=== PATIENT | female | born 1960 | race Caucasian/White ===

== ENCOUNTER → 2016-09-09 | Outpatient (CLI) | payer BC ==
[~2016-09-09] MED LIST: BUTA1CAP39 PO; ESCT10T PO; ESTR0.5T PO; ESTRODOL PO; HYDR-3454 PO; LEVO75CA2; LEVO88TA26 PO; LVT.088T PO; ONDA-42 SL; VIVELLE TD
--- NOTE | 2016-09-09 19:31 | Diagnostic Imaging Report ---
INDICATION: Chest pain with history of thoracic aneurysm. TECHNIQUE: Two view chest at 5:17 PM CORRELATION STUDY: 02/22/2009 FINDINGS: Heart size and mediastinal configuration relatively stable and unremarkable. Minimal calcification of the aortic arch. No suggestion for abnormal mediastinal widening. The lungs are clear with no consolidating infiltrate. There is no significant pleural effusion or pneumothorax. Perhaps minimal pectus excavatum. IMPRESSION: 1. No radiographic evidence for acute abnormality of the chest. Dictated by: Dictated on workstation # [id number]
== END ==
LOC: RAD 16:42
PROVIDERS: ATTEND Internal Medicine
DX: R07.9 Chest pain, unspecified (principal)
CPT/HCPCS: 71020

== ENCOUNTER 2016-10-18 12:30 | Outpatient (RCR) | payer BC ==
[2016-12-04] MEDS ORDERED: NEBI5TAB8 PO (09:16)
[2016-12-04] MEDS ORDERED: HYDR-3812 PO (09:16)
[2016-12-04] MEDS ORDERED: FENT1PAT8 TD (09:16)
== END 2016-12-11 | disposition home or self-care (01) ==
LOC: CARD 12:30
PROVIDERS: ATTEND Internal Medicine
DX: R00.2 Palpitations (principal); R07.9 Chest pain, unspecified
CPT/HCPCS: 93270

== ENCOUNTER → 2016-11-20 | Outpatient (CLI) | payer BC ==
[~2016-11-20] MED LIST changes: +CATHETER FLUSH 10 ML SYR IV PRN; +FENT1PAT8 TD; +HYDR-3812 PO; +IOHEXOL 350 MG/ML 100 ML (OMNIPAQUE 350) VIAL IV ONE; +NEBI5TAB8 PO; +NS 100 ML (IVPB) BAG IV ONE
--- NOTE | 2016-11-20 13:25 | Diagnostic Imaging Report ---
PROCEDURE: US Gallbladder. TECHNIQUE: Multiple real-time grayscale images were obtained over the right upper quadrant in various projections. INDICATION: Abdominal pain. FINDINGS: There is a 4.0 x 2 x 3.1 cm indeterminate solid mass seen near the pancreatic body region. This is concerning for malignancy. The liver demonstrates a 1.9 cm cystic lesion with septations seen and no internal vascularity within the inferior aspect of the right hepatic lobe. Hepatopetal flow of the portal vein is seen. The gallbladder demonstrates no stones or wall thickening. No pericholecystic fluid is seen. The right kidney is 10.4 cm in length with no hydronephrosis or focal lesion. No fluid collection in the upper abdomen is seen. IMPRESSION: A 4 cm suspicious mass is seen at the level of the pancreatic body. Pancreatic mass protocol CT scan of the abdomen without and with intravenous contrast is recommended for further evaluation. The findings of suspected pancreatic mass were called to Dr. Rosales by the anesthesiology technologist performing the exam at 01:00 p.m. Dictated by: Dictated on workstation # [id number]
[2016-11-20 13:51] LABS: BLOOD UREA NITROGEN 8 MG/DL (7-18); BUN/CREATININE RATIO 11; GFR ESTIMATED > 60
--- NOTE | 2016-11-20 15:47 | Diagnostic Imaging Report ---
PROCEDURE: CT abdomen and pelvis with and without contrast. TECHNIQUE: Precontrast acquisitions were acquired through the abdomen and pelvis. Multiple contiguous axial images were obtained through the abdomen and pelvis after the administration of intravenous contrast. INDICATION: Pancreatic mass. Abdominal pain. 100 mL of Omnipaque 350 is administered intravenously. FINDINGS: The lung bases are clear. There is a pancreatic body mass measuring 5.1 x 3.1 x 3.6 cm in size. This appears to be extending outside the confines of the border of the pancreas with surrounding mild fatty stranding. There is encasement of the splenic artery, the splenic vein, the upper aspect of the SMV near its confluence with the splenic vein with obstruction of the proximal aspect of the portal vein. This demonstrates reconstitution. Lymphatic artery originates from the SMA, replaced hepatic artery. There is partial encasement of the left gastric artery as well. Portal vein collaterals are seen in the iron hepatis. There are hypodense lesions in the liver up to 1.5 cm in the upper aspect of the right hepatic lobe, likely related to cysts with no evidence of a solid lesion or metastasis. There are perfusional density changes in the liver probably secondary to the proximal portal vein occlusion. The pancreatic head and the bile ducts appear normal. The spleen is not enlarged. The adrenal glands appear unremarkable. The kidneys have symmetric enhancement and contrast excretion. There is no hydronephrosis. The abdominal aorta is normal in caliber. Minimal amount of free fluid in the pelvis is seen. The small bowel mesentery demonstrates mild venous engorgement and minimal prominence of the mesenteric lymph nodes. Some colonic thickening is seen in the left colon and the rectum. This is probably related to inferior mesenteric vein obstruction. There is mild diverticulosis. The urinary bladder appears unremarkable. The osseous structures appear grossly unremarkable. IMPRESSION: A 5.1 cm pancreatic body mass with occlusion of the confluence of the splenic vein, SMV and proximal aspect of the portal vein and encasement of the splenic artery, compatible with pancreatic adenocarcinoma. The findings were discussed with Dr. Rosales at time of dictation. Dictated by: Dictated on workstation # [id number]
== END ==
LOC: RAD 11:55
PROVIDERS: ATTEND Internal Medicine
DX: K86.89 Other specified diseases of pancreas (principal)
CPT/HCPCS: 36415; 74178; 76705; 82565; 84520

== ENCOUNTER 2016-12-04 09:00 | Outpatient (CLI) | payer BC ==
[~2016-12-04] VITALS: Ht 151.1 cm; Wt 49.9 kg
[~2016-12-04 09:00] MED LIST changes: -CATHETER FLUSH 10 ML SYR IV PRN; -FENT1PAT8 TD; -HYDR-3812 PO; -IOHEXOL 350 MG/ML 100 ML (OMNIPAQUE 350) VIAL IV ONE; -NEBI5TAB8 PO; -NS 100 ML (IVPB) BAG IV ONE
[2016-12-04] MEDS ORDERED: FENT1PAT8 TD (09:16)
[2016-12-04] MEDS ORDERED: NEBI5TAB8 PO (09:16)
[2016-12-04] MEDS ORDERED: HYDR-3812 PO (09:16)
== END 2016-12-04 09:53 ==
LOC: PREOP 09:00
PROVIDERS: ATTEND Surgery
DX: Z01.818 Encounter for other preprocedural examination (principal); C25.9 Malignant neoplasm of pancreas, unspecified

== ENCOUNTER 2016-12-05 11:17 | Day surgery (SDC) | payer BC ==
[~2016-12-05] VITALS: Ht 151.1 cm; Wt 49.9 kg
[~2016-12-05 11:17] MED LIST changes: +FENT1PAT8 TD; +HYDR-3812 PO; +NEBI5TAB8 PO
[2016-12-05] MEDS ORDERED: ceFAZolin 2 GM/NS 50 ML IV ONE (11:30)
[2016-12-05] MEDS ORDERED: CATHETER FLUSH 10 ML SYR IV PRN (11:30)
--- NOTE | 2016-12-05 11:32 | Progress Note-Pre Operative ---
Pre-Operative Progress Note H&P Reviewed The H&P was reviewed, patient examined and no changes noted. Time Seen by Provider: 11:28 Date H&P Reviewed: Dec 05, 2016 Time H&P Reviewed: 11:30 Pre-Operative Diagnosis: Venous Insufficiency, Pancreatic CA ANN SIFUENTES DO Dec 05, 2016 11:32
[2016-12-05 11:55] VITALS: BP 124/68
[2016-12-05] MEDS ORDERED: HEParin (CENTRAL IV FLUSH) 500 UNIT/5 ML SYR ONE (11:57)
[2016-12-05] MEDS ORDERED: LIDOCAINE/EPI 1%-1:200,000 (XYLOCAINE) 30 ML VIAL ONE (11:57)
[2016-12-05] MEDS ORDERED: 0.9% SODIUM CHLORIDE PF INJ 20 ML VIAL ONE ×2 (11:58→12:20)
[2016-12-05] MEDS ORDERED: LIDOCAINE PF 2% 5 ML (XYLOCAINE) VIAL ONE (11:59)
[2016-12-05] MEDS ORDERED: proPOfol 200 MG/20 ML (DIPRIVAN) VIAL IV ONE (11:59)
[2016-12-05] MEDS ORDERED: MIDAZOLAM 2 MG/2 ML (VERSED) VIAL ONE (11:59)
[2016-12-05] MEDS ORDERED: ONDANSETRON 4 MG/2 ML (SDV) Z0FRAN ONE ×2 (11:59→12:07)
[2016-12-05] MEDS ORDERED: DEXAMETHASONE PF 10 MG/ML (DECADRON) VIAL ONE (11:59)
[2016-12-05] MEDS ORDERED: fentaNYL INJECTION 100 MCG/2 ML AMP ONE (11:59)
[2016-12-05] MEDS ORDERED: LACTATED RINGERS 1,000 ML IV PRN (12:03)
[2016-12-05] MEDS ORDERED: SCOPOLAMINE 1.5 MG (TRANSDERM-SCOP) PATCH ONE (12:06)
[2016-12-05] MEDS ORDERED: SEVOFLURANE (ULTANE) 15 ML INHAL SOLN ONE ×2 (12:07)
[2016-12-05] MEDS ORDERED: FAMOTIDINE 20MG/2ML IV (PEPCID) ONE (12:07)
[2016-12-05] MEDS ORDERED: LACTATED RINGERS 1,000 ML IV ONE ×2 (12:07→12:40)
[2016-12-05] MEDS ORDERED: SCOPOLAMINE 1.5 MG (TRANSDERM-SCOP) PATCH TOP ONE (12:15)
[2016-12-05] MEDS ORDERED: ONDANSETRON 4 MG/2 ML (SDV) Z0FRAN IV ONE (12:15)
[2016-12-05] MEDS ORDERED: FAMOTIDINE 20MG/2ML IV (PEPCID) IV ONE (12:15)
[2016-12-05] MEDS ORDERED: morphine INJ 10 MG/ML 1ML (SYR OR VIAL) IVP PRN (13:00)
[2016-12-05] MEDS ORDERED: ONDANSETRON 4 MG/2 ML (SDV) Z0FRAN IVP PRN (13:00)
[2016-12-05] MEDS ORDERED: morphine INJ 10 MG/ML 1ML (SYR OR VIAL) ONE (13:09)
--- NOTE | 2016-12-05 13:15 | Progress Note-Post Operative ---
Post-Operative Progess Note Surgeon (s)/Heel Turner (s) Surgeon ANN SIFUENTES DO Heel Turner: none Pre-Operative Diagnosis Venous Insufficiency, Pancreatic CA Post-Operative Diagnosis same Procedure & Operative Findings Date of Procedure 12/05/16 Procedure Performed/Findings port placement Anesthesia Type LMA Estimated Blood Loss Estimated blood loss (mL): scant Specimens/Packing Specimens Removed none ANN SIFUENTES DO Dec 05, 2016 13:14
--- NOTE | 2016-12-05 13:18 | Discharge Inst-Surgical ---
Discharge Inst-Surgical Depart Medication/Instructions New, Converted or Re-Newed RX: Other (no RX) Patient Instructions Follow up Appt: Make appointment for 1 week. [phone] Instructions: No strenuous activity. May shower in 24 hours, no tub bath or soaking. Skin/Wound Care: May remove band-aids in am. Dermabond will fall off on its own. Symptoms to Report: Appetite Changes, Extremity Discoloration, Numbness/Tingling, Swelling Increased , Bleeding Excessive, Eyesight Changes, Pain Increased, Urine Color Change, Constipation(Persistent), Fever over 101 degree F, Pain/Pressure in chest, Urinating Difficulty, Cough Up/Vomit Blood, Heart Beat Irreg/Pounding, Pain/ Pressure in jaw, Vaginal Bleeding Increase, Cramps in feet or legs, Lightheadedness, Pain/Pressure in shoulder, Diarrhea(Persistent), Memory Changes Suddenly, Questions/Concerns, Weight gain consecutive days, Dizziness/ Fainting, Nausea/Vomiting, Shortness of Breath, Weight gain over 2 pounds If questions or concerns contact your physician Or seek help at emergency department. Activity Activity as Tolerated: Yes Activity Instructions: Avoid Stress to Incision Diet Discharge Diet: No Restrictions If Any Problems/Questions/Issu: Contact Your Physician, Go to Emergency Room Skin/Wound Care Infection Signs and Symptoms: Increased Redness, Foul Odor of Wound, Increased Drainage, Skin Itchy or Has a Rash, Increased Swelling, Temperature Above 101 F Bathing Instructions: Shower Stitches/Harika/Dermabond Dis: Dermabond Ice Pack: Ice On and Off Site ANN SIFUENTES DO Dec 05, 2016 13:18
[2016-12-05 13:55] VITALS: BP 101/65
[2016-12-05] MEDS ORDERED: HYDROcodone/APAP 5 MG/325 MG (LORTAB) TAB PO ONE (14:15)
[2016-12-05 14:25] VITALS: BP 103/57
[2016-12-05 14:55] VITALS: BP 100/57
[2016-12-05 15:30] VITALS: BP 100/57
--- NOTE | 2016-12-05 17:49 | Diagnostic Imaging Report ---
EXAMINATION: Intraoperative view of the chest. INDICATION: Port placement performed by Dr. Murray. FLUOROSCOPY TIME: 2 seconds. IMPRESSION: Left internal jugular port is seen with the tip at the cavoatrial junction. Dictated by: Dictated on workstation # [id number]
--- NOTE | 2016-12-08 01:38 | OPERATIVE REPORT ---
PROCEDURE PHYSICIAN: ANN MURRAY DATE OF PROCEDURE: 12/05/2016 PREOPERATIVE DIAGNOSIS: 1. Venous insufficiency. 2. Pancreatic cancer. POSTOPERATIVE DIAGNOSIS: 1. Venous insufficiency. 2. Pancreatic cancer. PROCEDURE: Insertion of Port-A-Cath left IJ, left anterior chest wall. SURGEON: Dr. Murray AUTOMATIC FOLDER SEAMER: None. ANESTHESIA: LMA BLOOD LOSS: Less than 5 mL. FLUIDS: Per anesthesia. SPECIMENS: None. POSTOPERATIVE CONDITION: Stable. INDICATION FOR THE PROCEDURE: The patient is a 56-year-old female who unfortunately has been recently diagnosed with pancreatic cancer and having trouble with a blood sticks and will need long-term IV access for chemotherapy. FINDINGS: The patient had a Port-A-Cath placed in left anterior chest wall through the left IJ tunneled to the left anterior chest wall. PROCEDURE NOTE: After informed consent was obtained, the patient was brought to the operating room, placed on table in supine position. She was sterilely prepped and draped in the normal fashion. Local lidocaine used to infiltrate the skin of the left anterior chest wall as well as up in the direction toward the left IJ and then in the left neck. Then using an ultrasound guidance, I am able to find the internal jugular vein and then watching inserted the needle right into the vein. Good flash of blood. Removed this syringe. Placed a guidewire down the needle using Seldinger technique. Checked ultrasound and it was in good position then checked with fluoroscopy and it was down in the heart. I clamped this in place and made an incision in the left anterior chest wall with a number 15 blade, carried down through skin into subcutaneous tissue, deepened down through the subcutaneous tissue with Bovie electrocautery, down to the fascia of the pectoralis muscle. I created a pocket then made a stab incision along the guidewire and then over the guidewire using the Seldinger technique, placed the dilator. Then just next to the dilator, I used the tunneler to tunnel the catheter from the neck and down into the left anterior chest wall. Once this was in, then I removed the inner portion of the dilator as well as the guidewire at the same time and placed the catheter down the dilator using the Seldinger technique. Checked with fluoroscopy and it was in good position as was the dilator. I removed the dilating sheath and then checked again and the catheter was in good position. Cut off a distal portion of the catheter and then attached to the port and then placed the locking mechanism in place, then accessed the port with a Pastrana needle, good flash of blood and then easily flushed with saline. Placed this into the pocket and then sutured this in place with 3-0 Prolene. Then using a Pastrana needle, flushed with heparinized saline. Closed the subcutaneous tissue with 3-0 Vicryl 2 interrupted sutures then closed the skin with 4-0 undyed Monocryl 3 interrupted subcuticular stitches. Also closed the stab incision with a 4-0 undyed Monocryl subcuticular stitch. There was a little bleeding at the beginning at the left IJ but this had stopped. Took a quick fluoroscopy, good curve at the IJ and no kink at the port. The area was then cleaned and dried and Dermabond placed. The patient then transferred to recover room in stable condition. Sponge, needle and instrument counts correct at the end of the case. Job ID: [id number] Dictated Date: 12/05/2016 15:57:09 Pig Farm Manager Date: 12/08/2016 01:27:42 / santos
--- OUTSIDE RECORDS SUMMARY | 2016-12-12 03:31 | XMS REPORT ---
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 Assessment Encounter for immunization Z23 Active Problem 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 Active Problem Acute pharyngitis 462 Active Problem Other, multiple, and unspecified sites, insect bite, nonvenomous, infected 919.5 Active Problem Need for prophylactic vaccination and inoculation, Influenza V04.81 Active Problem DTAP TEST V06.1 Active Problem PPV23 (PNEUMOVAX) DX V03.82 Active Problem Bite of nonvenomous arthropod E906.4 Active Problem ZOSTAVAX DX V05.8 Active Medications No Known Medications Procedures Procedure Coding System Code Date SINGLE IMMUNIZATION ADMIN CPT-4 54327 Mar 06, 2015 TDAP (BOOSTRIX) CPT-4 09480 Mar 06, 2015 Results No Known Results Immunizations Vaccine Administration Date TDAP (BOOSTRIX) Mar 06, 2015 Summary Purpose eClinicalWorks Submission
--- OUTSIDE RECORDS SUMMARY | 2016-12-12 03:31 | XMS REPORT | Continuity of Care Document ---
Author Author [facility] Organization [facility] Address Unknown Phone Unavailable Allergies Active Description Code Type Severity Reaction Onset Reported/Identified Relationship to Patient Clinical Status Yes NKANo Known Allergies NKA Miscellaneous Allergy Unknown N/ A 09/21/2005 Yes bisacodyl [id number] Drug Allergy Unknown HIVES 12/05/2016 Yes SENOK SENOK Unknown N/A 12/09/2016 Medications Problems Date Dx Coded Attending Type Code Diagnosis Diagnosed By 02/27/2010 Ot 346.90 02/27/2010 Ot 784.0 02/18/2012 RAJOTTE SANDER OPERATOR, AMARILYS A V04.81 FLU DX (3 YRS AND ABOVE, IM) 02/18/2012 RAJOTTE SANDER OPERATOR, AMARILYS A V04.81 FLU DX (3 YRS AND ABOVE, IM) 02/18/2012 RAJOTTE SANDER OPERATOR, AMAIRLYS A V04.81 FLU DX (3 YRS AND ABOVE, IM) 02/18/2012 RAJOTTE SANDER OPERATOR, AMARILYS A V04.81 FLU DX (3 YRS AND ABOVE, IM) 02/18/2012 RAJOTTE SANDER OPERATOR, AMARILYS A V04.81 FLU DX (3 YRS AND ABOVE, IM) 02/18/2012 RAJOTTE SANDER OPERATOR, AMARILYS A V04.81 FLU DX (3 YRS AND ABOVE, IM) 02/18/2012 RAJOTTE SANDER OPERATOR, AMARILYS A V04.81 FLU DX (3 YRS AND ABOVE, IM) 02/18/2012 RAJOTTE SANDER OPERATOR, AMARILYS A V04.81 FLU DX (3 YRS AND ABOVE, IM) 03/06/2012 RAJOTTE SANDER OPERATOR, AMARILYS A V03.82 PPV23 (PNEUMOVAX) DX 03/06/2012 RAJOTTE SANDER OPERATOR, AMARILYS A V06.1 TDAP DX 03/06/2012 RAJOTTE SANDER OPERATOR, AMARILYS A V03.82 PPV23 (PNEUMOVAX) DX 03/06/2012 RAJOTTE SANDER OPERATOR, AMAIRLYS A V06.1 TDAP DX 03/06/2012 RAJOTTE SANDER OPERATOR, AMARILYS A V03.82 PPV23 (PNEUMOVAX) DX 03/06/2012 RAJOTTE SANDER OPERATOR, AMARILYS A V06.1 TDAP DX 03/06/2012 RAJOTTE SANDER OPERATOR, AMARILYS A V03.82 PPV23 (PNEUMOVAX) DX 03/06/2012 RAJOTTE SANDER OPERATOR, AMARILYS A V06.1 TDAP DX 03/06/2012 RAJOTTE SANDER OPERATOR, AMARILYS A V03.82 PPV23 (PNEUMOVAX) DX 03/06/2012 RAJOTTE SANDER OPERATOR, AMARILYS A V06.1 TDAP DX 03/06/2012 RAJOTTE SANDER OPERATOR, AMARILYS A V03.82 PPV23 (PNEUMOVAX) DX 03/06/2012 RAJOTTE SANDER OPERATOR, AMARILYS A V06.1 TDAP DX 03/06/2012 RAJOTTE SANDER OPERATOR, AMARILYS A V03.82 PPV23 (PNEUMOVAX) DX 03/06/2012 RAJOTTE SANDER OPERATOR, AMARILYS A V06.1 TDAP DX 03/06/2012 RAJOTTE SANDER OPERATOR, AMARILYS A V03.82 PPV23 (PNEUMOVAX) DX 03/06/2012 RAJOTTE SANDER OPERATOR, AMARILYS A V06.1 TDAP DX 06/16/2012 RAJOTTE SANDER OPERATOR, AMARILYS A 379.00 SCLERITIS UNSPECIFIED 06/16/2012 RAJOTTE SANDER OPERATOR, AMARILYS A 379.00 SCLERITIS UNSPECIFIED 06/16/2012 RAJOTTE SANDER OPERATOR, AMARILYS A 379.00 SCLERITIS UNSPECIFIED 06/16/2012 RAJOTTE SANDER OPERATOR, AMARILYS A 379.00 SCLERITIS UNSPECIFIED 06/16/2012 RAJOTTE SANDER OPERATOR, AMARILYS A 379.00 SCLERITIS UNSPECIFIED 06/16/2012 RAJOTTE SANDER OPERATOR, AMARILYS A 379.00 SCLERITIS UNSPECIFIED 06/16/2012 RAJOTTE SANDER OPERATOR, AMARILYS A 379.00 SCLERITIS UNSPECIFIED 02/18/2013 RAJOTTE SANDER OPERATOR, AMARILYS A 462 PHARYNGITIS ACUTE 02/18/2013 RAJOTTE SANDER OPERATOR, AMARILYS A 462 PHARYNGITIS ACUTE 02/18/2013 RAJOTTE SANDER OPERATOR, AMARILYS A 462 PHARYNGITIS ACUTE 02/18/2013 RAJOTTE SANDER OPERATOR, AMARILYS A 462 PHARYNGITIS ACUTE 02/18/2013 RAJOTTE SANDER OPERATOR, AMARILYS A 462 PHARYNGITIS ACUTE 03/09/2013 DIANNE HUBER, SHER Robbins Ot 211.3 03/09/2013 DIANNE HUBER, SHER Robbins Ot 562.10 03/09/2013 DIANNE HUBER, SHER Robbins Ot V76.51 03/29/2013 RAJOTTE SANDER OPERATOR, AMARILYS A V05.8 ZOSTAVAX DX 03/29/2013 RAJOTTE SANDER OPERATOR, AMARILYS A V05.8 ZOSTAVAX DX 03/29/2013 RAJOTTE SANDER OPERATOR, AMARILYS A V05.8 ZOSTAVAX DX 03/29/2013 RAJOTTE SANDER OPERATOR, AMARILYS A V05.8 ZOSTAVAX DX 07/27/2013 RAJOTTE SANDER OPERATOR, AMARILYS A 919.5 INSECT BITE NONVENOMOUS OF OTHER MULTIPLE AND UNSPECIFIED SITES INFECTED 07/27/2013 RAJALANE SANDER OPERATOR, AMARILYS A 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 07/27/2013 RAJOTTE SANDER OPERATOR, AMARILYS A 919.5 INSECT BITE NONVENOMOUS OF OTHER MULTIPLE AND UNSPECIFIED SITES INFECTED 07/27/2013 RAJOTTE SANDER OPERATOR, AMARILYS A 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 07/27/2013 RAJOTTE SANDER OPERATOR, AMARILYS A 919.5 INSECT BITE NONVENOMOUS OF OTHER MULTIPLE AND UNSPECIFIED SITES INFECTED 07/27/2013 RAJOTTE SANDER OPERATOR, AMARILYS A 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 11/24/2013 CRIS HUBER, MEDINA Sanders Ot 216.5 11/24/2013 CRIS HUBER, MEDINA Sanders Ot 244.9 11/24/2013 CRIS HUBER, MEDINA Sanders Ot 311 11/24/2013 CRIS HUBER, MEDINA Sanders Ot V74.8 01/30/2014 JUDE MCCURDY SANDER OPERATOR Ot 346.90 01/30/2014 JUDE MCCURDY SANDER OPERATOR Ot 784.0 03/08/2014 RAJALANE SANDER OPERATOR, AMARILYS A 357.9 NEUROPATHY UNSP 03/08/2014 RAJALANE SANDER OPERATOR, AMARILYS A 723.1 PAIN NECK 03/08/2014 CHERYLE SANDER OPERATOR, AMARILYS A 733.00 OSTEOPOROSIS UNSPECIFIED 03/08/2014 CHERYLE SANDER OPERATOR, AMARILYS A 357.9 NEUROPATHY UNSP 03/08/2014 RAJALANE SANDER OPERATOR, AMARILYS A 723.1 PAIN NECK 03/08/2014 NAMAN SANDER OPERATOR, AMARILYS A 733.00 OSTEOPOROSIS UNSPECIFIED 03/16/2015 Ot 787.01 03/16/2015 DIANNE HUBER, SHER Robbins Ot V72.84 03/16/2015 CRIS HUBER, MEDINA Sanders Ot 448.1 03/16/2015 CRIS HUBER, MEDINA Sanders Ot 709.9 03/16/2015 CRIS HUBER, MEDINA Sanders Ot V72.84 09/11/2016 DIANNE HUBER, SHER Robbins Ot R07.9 CHEST PAIN, UNSPECIFIED 09/18/2016 DIANNE HUBER, SHER Robbins Ot R07.9 CHEST PAIN, UNSPECIFIED 10/03/2016 DIANNE HUBER, SHER Robbins Ot R00.2 PALPITATIONS 10/03/2016 DIANNE HUBER, SHER Robbins Ot R07.9 CHEST PAIN, UNSPECIFIED 11/21/2016 DIANNE HUBER, SHER Robbins Ot K86.89 OTHER SPECIFIED DISEASES OF PANCREAS 12/04/2016 KEEGAN SIFUENTES DOIC B Ot C25.9 MALIGNANT NEOPLASM OF PANCREAS, UNSPECIF 12/04/2016 BEAR HERNANDEZ ANN B Ot Z01.818 ENCOUNTER FOR OTHER PREPROCEDURAL EXAMIN 12/05/2016 KEEGAN SIFUENTES DOIC B Ot C25.9 MALIGNANT NEOPLASM OF PANCREAS, UNSPECIF 12/05/2016 KEEGAN SIFUENTES DOIC B Ot I87.2 VENOUS INSUFFICIENCY (CHRONIC) (PERIPHER 12/09/2016 JT SWANSON Ot 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 12/09/2016 JT SWANSON Ot E03.9 HYPOTHYROIDISM, UNSPECIFIED 12/09/2016 JT SWANSON Ot Z79.899 OTHER ANESTHESIOLOGIST AND CRITICAL CARE (CURRENT) DRUG THERAPY 12/09/2016 JT SWANSON N Ot 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 12/09/2016 JT SWANSON N Ot E03.9 HYPOTHYROIDISM, UNSPECIFIED 12/09/2016 JT SWANSON N Ot Z79.899 OTHER ANESTHESIOLOGIST AND CRITICAL CARE (CURRENT) DRUG THERAPY 12/09/2016 SHER DEAN MD Ot K86.89 OTHER SPECIFIED DISEASES OF PANCREAS 12/10/2016 KEEGAN SIFUENTES DOIC Gary Ot C25.9 MALIGNANT NEOPLASM OF PANCREAS, UNSPECIF 12/10/2016 BEAR HERNANDEZANN Ot Z01.818 ENCOUNTER FOR OTHER PREPROCEDURAL EXAMIN 12/11/2016 BEAR ANN Gary Ot C25.9 MALIGNANT NEOPLASM OF PANCREAS, UNSPECIF 12/11/2016 ANN SIFUENTES DO Ot E03.9 HYPOTHYROIDISM, UNSPECIFIED 12/11/2016 ANN SIFUENTES DO Ot F32.9 MAJOR DEPRESSIVE DISORDER, SINGLE EPISOD 12/11/2016 BEAR HERNANDEZANN Ot I87.2 VENOUS INSUFFICIENCY (CHRONIC) (PERIPHER 12/11/2016 JOSHNUNU ANN Ot Z79.899 OTHER RETIREMENT (CURRENT) DRUG THERAPY Procedures Code [place] [address] OXIMETRY 2012 24237 THERAPUTIC INJ SQ/IM 02/18/2013 J0696 ROCEPHIN INJ 07/2012 15155 STREP A (IN-HOUSE) 02/18/2013 58354 THERAPUTIC INJ SQ/IM 07/27/2013 J0696 ROCEPHIN INJ 1 g 07/27/2013 Neurology Ester Morejon 03/01/2014 23804 MRI SPINE (CERVICAL) W/O CONTRAST 03/01/2014 20982 MRI SPINE (THORACIC) W/O CONTRAST 03/01/2014 Results Test Result Range [id number] - 11/20/16 13:27 Serum or plasma urea nitrogen measurement (mass/volume) 8 mg /dL 7-18 Serum or plasma creatinine measurement (mass/volume) 0.70 mg /dL 0.60-1.30 Serum or plasma urea nitrogen/creatinine mass ratio 11 NRG Serum or plasma creatinine measurement with calculation of estimated glomerular filtration rate > NRG Methicillin resistant Staphylococcus aureus (MRSA) screening culture - 11:25 Methicillin resistant Staphylococcus aureus (MRSA) screening culture NEG NRG Encounters ACCT No. Visit Date/Time Discharge Status Pt. Type Provider Facility Loc./Unit Complaint [id number] 12/05/2016 11:17:00 2016 15:30:00 DIS Outpatient ANN SIFUENTES DO [facility] PANCREATIC CANCER [id number] 12/04/2016 09:00:00 2016 09:53:00 DIS Outpatient BEAR ANN HERNANDEZ [facility] PREOP PANCREATIC CANCER [id number] 03/04/2014 15:18:00 2013 23:59:59 CLS Outpatient [id number] 01/30/2014 11:14:00 2013 13:07:00 DIS Emergency JUDE MCCURDY SANDER OPERATOR [facility] ER [id number] 11/24/2013 09:11:00 2013 13:42:00 DIS Outpatient CRIS HUBER, MEDINA Sanders [facility] [id number] 11/22/2013 10:23:00 2013 23:59:59 CLS Outpatient MEDINA LYNCH MD [facility] PREOP [id number] 03/09/2013 07:24:00 2012 10:30:00 DIS Outpatient SHER DEAN MD [facility] [id number] 03/03/2013 07:22:00 2012 23:59:59 CLS Outpatient SHER DEAN MD [facility] PREOP [id number] 12/10/2016 12:38:00 ACT Outpatient JT SWANSON [facility] ONC [id number] 12/10/2016 08:09:00 ACT Outpatient JT SWANSON [facility] RAD PANCREATIC MASS K86.9 [id number] 11/20/2016 11:55:00 ACT Outpatient SHER DEAN MD [facility] RAD RUQ ABD PAIN [id number] 10/18/2016 12:30:00 ACT Outpatient SHER DEAN MD [facility] CARD PALPITATIONS,CHEST PAIN [id number] 09/09/2016 16:42:00 ACT Outpatient SHER DEAN MD [facility] RAD PALPITATIONS,CHEST PAIN [id number] 06/12/2010 08:43:00 Document Registration [id number] 02/27/2010 14:01:00 Document Registration
--- OUTSIDE RECORDS SUMMARY | 2016-12-12 03:31 | XMS REPORT ---
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 Problem PPV23 (PNEUMOVAX) DX V03.82 Active Problem Cervicalgia 723.1 Active Problem Need for prophylactic vaccination and inoculation, Influenza V04.81 Active Problem Acute pharyngitis 462 Active Problem Hypercholesterolemia E78.0 Active Problem ZOSTAVAX DX V05.8 Active Problem DTAP TEST V06.1 Active Problem Other, multiple, and unspecified sites, insect bite, nonvenomous, infected 919.5 Active Problem Bite of nonvenomous arthropod E906.4 Active Assessment Encounter for immunization Z23 Active Problem 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
== END 2016-12-05 15:30 | disposition home or self-care (01) ==
LOC: SDC 11:17
PROVIDERS: ATTEND Surgery
DX: C25.9 Malignant neoplasm of pancreas, unspecified (principal); I87.2 Venous insufficiency (chronic) (peripheral); E03.9 Hypothyroidism, unspecified; F32.9 Major depressive disorder, single episode, unspecified; Z79.899 Other long term (current) drug therapy
CPT/HCPCS: 87081

== ENCOUNTER → 2016-12-10 | Outpatient (CLI) | payer BC ==
--- NOTE | 2016-12-10 15:57 | Diagnostic Imaging Report ---
EXAMINATION: PET-CT TECHNIQUE: Serum glucose level at the time of the study is: 97 mg/dL. 10.8 mCi of FDG was administered intravenously followed by obtaining PET images with corresponding noncontrast CT scan images. The CT scan was performed for anatomic correlation and attenuation correction and was not performed according to the diagnostic protocol of the areas covered. The scan was performed from the head to mid thighs. INDICATION: Pancreatic cancer. FINDINGS: There is symmetric uptake in the brain. In the neck, there are mild areas of activity seen projecting over the left thyroid lobe of uncertain significance. There is no obvious thyroid nodule or mass seen on the localizer CT scan. The lungs demonstrate no suspicious hypermetabolic mass. There is a mass with mild to moderate hypermetabolism seen with maximum SUV of 5 noted in the pancreatic body. This matches the CT scan findings and is suspicious for pancreatic cancer. Adjacent activity around the pancreas and duodenum is likely physiologic with no discrete hypermetabolic peripancreatic lymph node involvement is seen. There is, however, a projection of the mass in superior direction around the celiac trunk region which appears to be essentially an exophytic part of the mass rather than a separate lymph node. IMPRESSION: 1. Pancreatic body mass with mild to moderate hypermetabolism suggestive of pancreatic cancer. No definite evidence of metastasis. 2. Nonspecific mild increased FDG uptake in the left thyroid lobe area with no definite underlying lesion based on the localizer CT. This is a nonspecific finding. Ultrasound evaluation of the thyroid gland could be considered for further evaluation. Dictated by: Dictated on workstation # [id number]
== END ==
LOC: RAD 08:09
PROVIDERS: ATTEND Internal Medicine Hematology & Oncology
DX: C25.9 Malignant neoplasm of pancreas, unspecified (principal); R93.8 Abnormal findings on diagnostic imaging of other specified body structures

== ENCOUNTER 2017-02-12 08:53 | Outpatient (RCR) | payer BC ==
[2016-12-09 09:09] LABS: BASOPHILS % (AUTO) 0 % (0-10); EOSINOPHILS # (AUTO) 0.1 10^3/uL (0.0-0.3); EOSINOPHILS % (AUTO) 2 % (0-10); LYMPHOCYTES # (AUTO) 1.4 X 10^3 (1.0-4.0); LYMPHOCYTES % (AUTO) 23 % (12-44); MEAN CORPUSCULAR HEMOGLOBIN 29 PG (25-34); MEAN CORPUSCULAR HGB CONC 32 G/DL (32-36); MEAN CORPUSCULAR VOLUME 91 FL (80-99); MEAN PLATELET VOLUME 10.5 FL (7.4-10.4); MONOCYTES # (AUTO) 0.5 X 10^3 (0.0-1.0); MONOCYTES % (AUTO) 8 % (0-12); NEUTROPHILS # (AUTO) 4.1 X 10^3 (1.8-7.8); NEUTROPHILS % (AUTO) 67 % (42-75); PLATELET COUNT 218 10^3/uL (130-400); RED BLOOD COUNT 4.16 10^6/uL (4.35-5.85); RED CELL DISTRIBUTION WIDTH 14.5 % (10.0-14.5); WHITE BLOOD COUNT 6.1 10^3/uL (4.3-11.0)
[2016-12-09 09:43] LABS: ALANINE AMINOTRANSFERASE 18 U/L (0-55); ALBUMIN 4.1 GM/DL (3.2-4.5); ANION GAP 9 MMOL/L (5-14); ASPARTATE AMINO TRANSFERASE 22 U/L (5-34); BILIRUBIN,TOTAL 0.4 MG/DL (0.1-1.0); BLOOD UREA NITROGEN 8 MG/DL (7-18); BUN/CREATININE RATIO 11; CARBON DIOXIDE 28 MMOL/L (21-32); CHLORIDE 103 MMOL/L (98-107); GFR ESTIMATED > 60; GLUCOSE 89 MG/DL (70-105); SODIUM 140 MMOL/L (135-145); TOTAL PROTEIN 6.9 GM/DL (6.4-8.2)
[2016-12-17 09:19] LABS: BASOPHILS % (AUTO) 0 % (0-10); EOSINOPHILS # (AUTO) 0.2 10^3/uL (0.0-0.3); EOSINOPHILS % (AUTO) 4 % (0-10); LYMPHOCYTES # (AUTO) 1.3 X 10^3 (1.0-4.0); LYMPHOCYTES % (AUTO) 25 % (12-44); MEAN CORPUSCULAR HEMOGLOBIN 29 PG (25-34); MEAN CORPUSCULAR HGB CONC 33 G/DL (32-36); MEAN CORPUSCULAR VOLUME 89 FL (80-99); MEAN PLATELET VOLUME 10.1 FL (7.4-10.4); MONOCYTES # (AUTO) 0.6 X 10^3 (0.0-1.0); MONOCYTES % (AUTO) 11 % (0-12); NEUTROPHILS # (AUTO) 3.1 X 10^3 (1.8-7.8); NEUTROPHILS % (AUTO) 60 % (42-75); PLATELET COUNT 190 10^3/uL (130-400); RED BLOOD COUNT 3.94 10^6/uL (4.35-5.85); RED CELL DISTRIBUTION WIDTH 13.9 % (10.0-14.5); WHITE BLOOD COUNT 5.2 10^3/uL (4.3-11.0)
[2016-12-17 09:55] LABS: ANION GAP 6 MMOL/L (5-14); BLOOD UREA NITROGEN 7 MG/DL (7-18); BUN/CREATININE RATIO 10; CALCIUM 8.9 MG/DL (8.5-10.1); CARBON DIOXIDE 27 MMOL/L (21-32); CHLORIDE 105 MMOL/L (98-107); CREATININE SERUM 0.67 MG/DL (0.60-1.30); GFR ESTIMATED > 60; GLUCOSE 90 MG/DL (70-105); POTASSIUM 3.4 MMOL/L (3.6-5.0); SODIUM 138 MMOL/L (135-145)
[2016-12-24 09:21] LABS: BASOPHILS % (AUTO) 0 % (0-10); EOSINOPHILS # (AUTO) 0.2 10^3/uL (0.0-0.3); EOSINOPHILS % (AUTO) 5 % (0-10); LYMPHOCYTES # (AUTO) 1.3 X 10^3 (1.0-4.0); LYMPHOCYTES % (AUTO) 46 % (12-44); MEAN CORPUSCULAR HEMOGLOBIN 29 PG (25-34); MEAN CORPUSCULAR HGB CONC 33 G/DL (32-36); MEAN CORPUSCULAR VOLUME 88 FL (80-99); MEAN PLATELET VOLUME 9.9 FL (7.4-10.4); MONOCYTES # (AUTO) 0.2 X 10^3 (0.0-1.0); MONOCYTES % (AUTO) 7 % (0-12); NEUTROPHILS # (AUTO) 1.3 X 10^3 (1.8-7.8); NEUTROPHILS % (AUTO) 43 % (42-75); PLATELET COUNT 119 10^3/uL (130-400); RED BLOOD COUNT 3.71 10^6/uL (4.35-5.85); RED CELL DISTRIBUTION WIDTH 13.4 % (10.0-14.5); WHITE BLOOD COUNT 2.9 10^3/uL (4.3-11.0)
[2016-12-24 09:35] LABS: ANION GAP 11 MMOL/L (5-14); BLOOD UREA NITROGEN 5 MG/DL (7-18); BUN/CREATININE RATIO 7; CALCIUM 8.6 MG/DL (8.5-10.1); CARBON DIOXIDE 26 MMOL/L (21-32); CHLORIDE 101 MMOL/L (98-107); CREATININE SERUM 0.69 MG/DL (0.60-1.30); GFR ESTIMATED > 60; GLUCOSE 95 MG/DL (70-105); POTASSIUM 2.7 MMOL/L (3.6-5.0); SODIUM 138 MMOL/L (135-145)
[2016-12-31 08:57] LABS: BASOPHILS % (AUTO) 1 % (0-10); EOSINOPHILS # (AUTO) 0.1 10^3/uL (0.0-0.3); EOSINOPHILS % (AUTO) 2 % (0-10); LYMPHOCYTES # (AUTO) 1.7 X 10^3 (1.0-4.0); LYMPHOCYTES % (AUTO) 39 % (12-44); MEAN CORPUSCULAR HEMOGLOBIN 30 PG (25-34); MEAN CORPUSCULAR HGB CONC 33 G/DL (32-36); MEAN CORPUSCULAR VOLUME 92 FL (80-99); MEAN PLATELET VOLUME 8.7 FL (7.4-10.4); MONOCYTES # (AUTO) 0.6 X 10^3 (0.0-1.0); MONOCYTES % (AUTO) 13 % (0-12); NEUTROPHILS # (AUTO) 1.9 X 10^3 (1.8-7.8); NEUTROPHILS % (AUTO) 45 % (42-75); PLATELET COUNT 265 10^3/uL (130-400); RED BLOOD COUNT 3.33 10^6/uL (4.35-5.85); RED CELL DISTRIBUTION WIDTH 15.1 % (10.0-14.5); WHITE BLOOD COUNT 4.3 10^3/uL (4.3-11.0)
[2016-12-31 09:21] LABS: ANION GAP 9 MMOL/L (5-14); BLOOD UREA NITROGEN 7 MG/DL (7-18); BUN/CREATININE RATIO 10; CALCIUM 8.5 MG/DL (8.5-10.1); CARBON DIOXIDE 25 MMOL/L (21-32); CHLORIDE 107 MMOL/L (98-107); CREATININE SERUM 0.72 MG/DL (0.60-1.30); GFR ESTIMATED > 60; GLUCOSE 107 MG/DL (70-105); POTASSIUM 3.7 MMOL/L (3.6-5.0); SODIUM 141 MMOL/L (135-145)
[2017-01-07 08:48] LABS: BASOPHILS % (AUTO) 1 % (0-10); EOSINOPHILS # (AUTO) 0.1 10^3/uL (0.0-0.3); EOSINOPHILS % (AUTO) 3 % (0-10); LYMPHOCYTES # (AUTO) 2.2 X 10^3 (1.0-4.0); LYMPHOCYTES % (AUTO) 61 % (12-44); MEAN CORPUSCULAR HGB CONC 32 G/DL (32-36); MEAN CORPUSCULAR VOLUME 91 FL (80-99); MEAN PLATELET VOLUME 9.5 FL (7.4-10.4); MONOCYTES # (AUTO) 0.2 X 10^3 (0.0-1.0); MONOCYTES % (AUTO) 5 % (0-12); NEUTROPHILS # (AUTO) 1.2 X 10^3 (1.8-7.8); NEUTROPHILS % (AUTO) 32 % (42-75); PLATELET COUNT 250 10^3/uL (130-400); RED CELL DISTRIBUTION WIDTH 15.1 % (10.0-14.5); WHITE BLOOD COUNT 3.7 10^3/uL (4.3-11.0)
[2017-01-07 08:52] LABS: MEAN CORPUSCULAR HEMOGLOBIN 29 PG (25-34)
[2017-01-07 09:35] LABS: ANION GAP 9 MMOL/L (5-14); BLOOD UREA NITROGEN 9 MG/DL (7-18); BUN/CREATININE RATIO 13; CALCIUM 8.8 MG/DL (8.5-10.1); CARBON DIOXIDE 27 MMOL/L (21-32); CHLORIDE 103 MMOL/L (98-107); CREATININE SERUM 0.67 MG/DL (0.60-1.30); GFR ESTIMATED > 60; GLUCOSE 81 MG/DL (70-105); POTASSIUM 3.9 MMOL/L (3.6-5.0); SODIUM 139 MMOL/L (135-145)
[2017-01-15 09:04] LABS: BASOPHILS % (AUTO) 1 % (0-10); EOSINOPHILS # (AUTO) 0.1 10^3/uL (0.0-0.3); EOSINOPHILS % (AUTO) 3 % (0-10); LYMPHOCYTES # (AUTO) 1.7 X 10^3 (1.0-4.0); LYMPHOCYTES % (AUTO) 39 % (12-44); MEAN CORPUSCULAR HEMOGLOBIN 29 PG (25-34); MEAN CORPUSCULAR HGB CONC 32 G/DL (32-36); MEAN CORPUSCULAR VOLUME 92 FL (80-99); MEAN PLATELET VOLUME 9.7 FL (7.4-10.4); MONOCYTES # (AUTO) 0.8 X 10^3 (0.0-1.0); MONOCYTES % (AUTO) 19 % (0-12); NEUTROPHILS # (AUTO) 1.7 X 10^3 (1.8-7.8); NEUTROPHILS % (AUTO) 38 % (42-75); PLATELET COUNT 152 10^3/uL (130-400); RED BLOOD COUNT 3.65 10^6/uL (4.35-5.85); RED CELL DISTRIBUTION WIDTH 15.4 % (10.0-14.5); WHITE BLOOD COUNT 4.4 10^3/uL (4.3-11.0)
[2017-01-15 09:24] LABS: ALANINE AMINOTRANSFERASE 25 U/L (0-55); ALBUMIN 3.6 GM/DL (3.2-4.5); ANION GAP 6 MMOL/L (5-14); ASPARTATE AMINO TRANSFERASE 28 U/L (5-34); BILIRUBIN,TOTAL 0.3 MG/DL (0.1-1.0); BLOOD UREA NITROGEN 8 MG/DL (7-18); BUN/CREATININE RATIO 12; CALCIUM 8.5 MG/DL (8.5-10.1); CARBON DIOXIDE 26 MMOL/L (21-32); CHLORIDE 107 MMOL/L (98-107); CREATININE SERUM 0.68 MG/DL (0.60-1.30); GFR ESTIMATED > 60; GLUCOSE 90 MG/DL (70-105); POTASSIUM 3.8 MMOL/L (3.6-5.0); SODIUM 139 MMOL/L (135-145); TOTAL PROTEIN 5.9 GM/DL (6.4-8.2)
[2017-01-22 09:11] LABS: BASOPHILS % (AUTO) 0 % (0-10); EOSINOPHILS # (AUTO) 0.1 10^3/uL (0.0-0.3); EOSINOPHILS % (AUTO) 1 % (0-10); LYMPHOCYTES # (AUTO) 2.9 X 10^3 (1.0-4.0); LYMPHOCYTES % (AUTO) 35 % (12-44); MEAN CORPUSCULAR HEMOGLOBIN 30 PG (25-34); MEAN CORPUSCULAR HGB CONC 32 G/DL (32-36); MEAN CORPUSCULAR VOLUME 91 FL (80-99); MEAN PLATELET VOLUME 9.5 FL (7.4-10.4); MONOCYTES # (AUTO) 0.3 X 10^3 (0.0-1.0); MONOCYTES % (AUTO) 4 % (0-12); NEUTROPHILS # (AUTO) 4.9 X 10^3 (1.8-7.8); NEUTROPHILS % (AUTO) 60 % (42-75); PLATELET COUNT 176 10^3/uL (130-400); RED BLOOD COUNT 3.65 10^6/uL (4.35-5.85); RED CELL DISTRIBUTION WIDTH 15.3 % (10.0-14.5); WHITE BLOOD COUNT 8.2 10^3/uL (4.3-11.0)
[2017-01-22 09:33] LABS: ANION GAP 12 MMOL/L (5-14); BLOOD UREA NITROGEN 11 MG/DL (7-18); BUN/CREATININE RATIO 15; CALCIUM 8.7 MG/DL (8.5-10.1); CARBON DIOXIDE 26 MMOL/L (21-32); CHLORIDE 102 MMOL/L (98-107); CREATININE SERUM 0.75 MG/DL (0.60-1.30); GFR ESTIMATED > 60; GLUCOSE 92 MG/DL (70-105); POTASSIUM 2.8 MMOL/L (3.6-5.0); SODIUM 140 MMOL/L (135-145)
[2017-01-22 10:13] LABS: MAGNESIUM 1.9 MG/DL (1.8-2.4)
[2017-01-29 09:36] LABS: BASOPHILS % (AUTO) 0 % (0-10); EOSINOPHILS # (AUTO) 0.1 10^3/uL (0.0-0.3); EOSINOPHILS % (AUTO) 1 % (0-10); LYMPHOCYTES % (AUTO) 44 % (12-44); MEAN CORPUSCULAR HEMOGLOBIN 30 PG (25-34); MEAN CORPUSCULAR HGB CONC 32 G/DL (32-36); MEAN CORPUSCULAR VOLUME 92 FL (80-99); MEAN PLATELET VOLUME 9.1 FL (7.4-10.4); MONOCYTES # (AUTO) 0.5 X 10^3 (0.0-1.0); MONOCYTES % (AUTO) 12 % (0-12); NEUTROPHILS # (AUTO) 1.9 X 10^3 (1.8-7.8); NEUTROPHILS % (AUTO) 43 % (42-75); PLATELET COUNT 120 10^3/uL (130-400); RED BLOOD COUNT 3.65 10^6/uL (4.35-5.85); RED CELL DISTRIBUTION WIDTH 16.1 % (10.0-14.5); WHITE BLOOD COUNT 4.5 10^3/uL (4.3-11.0)
[2017-01-29 09:53] LABS: ANION GAP 8 MMOL/L (5-14); BLOOD UREA NITROGEN 13 MG/DL (7-18); BUN/CREATININE RATIO 19; CALCIUM 8.5 MG/DL (8.5-10.1); CARBON DIOXIDE 27 MMOL/L (21-32); CHLORIDE 104 MMOL/L (98-107); CREATININE SERUM 0.68 MG/DL (0.60-1.30); GFR ESTIMATED > 60; GLUCOSE 94 MG/DL (70-105); POTASSIUM 3.9 MMOL/L (3.6-5.0); SODIUM 139 MMOL/L (135-145)
[2017-02-05 09:04] LABS: BASOPHILS % (AUTO) 1 % (0-10); EOSINOPHILS # (AUTO) 0.1 10^3/uL (0.0-0.3); EOSINOPHILS % (AUTO) 2 % (0-10); LYMPHOCYTES # (AUTO) 1.5 X 10^3 (1.0-4.0); LYMPHOCYTES % (AUTO) 43 % (12-44); MEAN CORPUSCULAR HEMOGLOBIN 30 PG (25-34); MEAN CORPUSCULAR HGB CONC 32 G/DL (32-36); MEAN CORPUSCULAR VOLUME 94 FL (80-99); MEAN PLATELET VOLUME 8.7 FL (7.4-10.4); MONOCYTES # (AUTO) 0.4 X 10^3 (0.0-1.0); MONOCYTES % (AUTO) 12 % (0-12); NEUTROPHILS # (AUTO) 1.5 X 10^3 (1.8-7.8); NEUTROPHILS % (AUTO) 42 % (42-75); PLATELET COUNT 137 10^3/uL (130-400); RED BLOOD COUNT 3.47 10^6/uL (4.35-5.85); RED CELL DISTRIBUTION WIDTH 17.4 % (10.0-14.5); WHITE BLOOD COUNT 3.6 10^3/uL (4.3-11.0)
[2017-02-05 09:31] LABS: ANION GAP 7 MMOL/L (5-14); BLOOD UREA NITROGEN 7 MG/DL (7-18); BUN/CREATININE RATIO 9; CALCIUM 8.8 MG/DL (8.5-10.1); CARBON DIOXIDE 27 MMOL/L (21-32); CHLORIDE 105 MMOL/L (98-107); CREATININE SERUM 0.76 MG/DL (0.60-1.30); GFR ESTIMATED > 60; GLUCOSE 105 MG/DL (70-105); POTASSIUM 4.2 MMOL/L (3.6-5.0); SODIUM 139 MMOL/L (135-145)
[~2017-02-12] VITALS: Ht 152.4 cm; Wt 54.9 kg
[~2017-02-12 08:53] MED LIST changes: +ATROPINE INJ 0.4 MG/ML SDV (CANCER CENTER) INJ SCH; +CTR IV SCH; +D5W 500 ML IV (CANCER CTR) 500 ML IV SCH; +DEXAMETHASONE IV ONE; +FLUOROURACIL 600 MG in SYRINGE-IVPB 1 SYRINGE IV SCH; +FLUOROURACIL IV SCH; +FOSAPREPITANT 150 MG/NS 150 MG IVPB (CANCER CTR) IV PRN; +FOSAPREPITANT DIMEGLUMINE 150 MG in NS (IVPB) CANCER CENTER ONLY 150 ML IV SCH; +GEMCITABINE HCL IV SCH; +IRINOTECAN HCL 200 MG, IRINOTECAN HCL 50 MG in D5W 250 ML IVPB (CANCER CTR) 250 ML IV SCH; +LEUCOVORIN CALCIUM 600 MG in D5W 250 ML IVPB (CANCER CTR) 250 ML IV SCH; +NS (IVPB) CANCER CENTER 250 ML ONE; +NS IV 1000 ML (CANCER CTR) 1,000 ML ONE; +NS IV 500 ML (CANCER CENTER) IV SCH; +NS IV SCH; +ONDANSETRON 8 MG, DEXAMETHASONE 4 MG/NS 50 ML IVPB (Cancer Ctr) IV ONE; +ONDANSETRON IV ONE; +OXALIPLATIN 100 MG, OXALIPLATIN (GENERIC) 20 MG in D5W 250 ML IVPB (CANCER CTR) 250 ML IV SCH; +PACLITAXEL PROTEIN IV SCH; +PALONOSETRON 0.25 MG, DEXAMETHASONE 10 MG/NS 50 ML IVPB IV PRN; +POTASSIUM CHL INJ (CANCER CTR) 20 MEQ in NS IV 1000 ML (CANCER CTR) 1,000 ML IV ONE; +[UNRECOGNIZED DRUG - OTHER] IV ONE; +[UNRECOGNIZED DRUG - OTHER] IV SCH; +diphenhydrAMINE 50 MG/ML INJ (CANCER CENTER) ONE; +methylPREDNISolone 125 MG/2 ML (SOLU-MEDROL) CANCER CTR ONE
[2017-02-12 09:16] LABS: BASOPHILS % (AUTO) 1 % (0-10); EOSINOPHILS # (AUTO) 0.1 10^3/uL (0.0-0.3); EOSINOPHILS % (AUTO) 3 % (0-10); LYMPHOCYTES # (AUTO) 1.8 X 10^3 (1.0-4.0); LYMPHOCYTES % (AUTO) 43 % (12-44); MEAN CORPUSCULAR HEMOGLOBIN 30 PG (25-34); MEAN CORPUSCULAR HGB CONC 32 G/DL (32-36); MEAN CORPUSCULAR VOLUME 94 FL (80-99); MEAN PLATELET VOLUME 9.1 FL (7.4-10.4); MONOCYTES # (AUTO) 0.6 X 10^3 (0.0-1.0); MONOCYTES % (AUTO) 14 % (0-12); NEUTROPHILS # (AUTO) 1.7 X 10^3 (1.8-7.8); NEUTROPHILS % (AUTO) 39 % (42-75); PLATELET COUNT 381 10^3/uL (130-400); RED BLOOD COUNT 3.47 10^6/uL (4.35-5.85); RED CELL DISTRIBUTION WIDTH 17.5 % (10.0-14.5); WHITE BLOOD COUNT 4.2 10^3/uL (4.3-11.0)
[2017-02-12 09:33] LABS: ALANINE AMINOTRANSFERASE 21 U/L (0-55); ALBUMIN 3.7 GM/DL (3.2-4.5); ANION GAP 6 MMOL/L (5-14); ASPARTATE AMINO TRANSFERASE 22 U/L (5-34); BILIRUBIN,TOTAL 0.3 MG/DL (0.1-1.0); BLOOD UREA NITROGEN 8 MG/DL (7-18); BUN/CREATININE RATIO 11; CALCIUM 8.7 MG/DL (8.5-10.1); CARBON DIOXIDE 27 MMOL/L (21-32); CHLORIDE 109 MMOL/L (98-107); CREATININE SERUM 0.71 MG/DL (0.60-1.30); GFR ESTIMATED > 60; GLUCOSE 108 MG/DL (70-105); SODIUM 142 MMOL/L (135-145); TOTAL PROTEIN 6.1 GM/DL (6.4-8.2)
== END 2017-02-15 | disposition home or self-care (01) ==
LOC: ONC 08:53
PROVIDERS: ATTEND Internal Medicine Hematology & Oncology
DX: Z51.11 Encounter for antineoplastic chemotherapy (principal); C25.1 Malignant neoplasm of body of pancreas; E03.9 Hypothyroidism, unspecified; R19.7 Diarrhea, unspecified; E86.0 Dehydration; E87.6 Hypokalemia; K59.00 Constipation, unspecified; F32.9 Major depressive disorder, single episode, unspecified; Z79.899 Other long term (current) drug therapy
CPT/HCPCS: 36415; 36591; 80048; 80053; 83735; 84443; 85025; 86301; 87324; 87449; 96360; 96361; 96365; 96366; 96367; 96372; 96375; 96413; 96417; 99213; 99214

== ENCOUNTER 2017-02-26 08:53 | Outpatient (RCR) | payer BC ==
[2017-02-19 09:30] LABS: BASOPHILS % (AUTO) 1 % (0-10); EOSINOPHILS % (AUTO) 0 % (0-10); LYMPHOCYTES # (AUTO) 1.5 X 10^3 (1.0-4.0); LYMPHOCYTES % (AUTO) 32 % (12-44); MEAN CORPUSCULAR HEMOGLOBIN 30 PG (25-34); MEAN CORPUSCULAR HGB CONC 32 G/DL (32-36); MEAN CORPUSCULAR VOLUME 93 FL (80-99); MEAN PLATELET VOLUME 9.3 FL (7.4-10.4); MONOCYTES # (AUTO) 0.6 X 10^3 (0.0-1.0); MONOCYTES % (AUTO) 12 % (0-12); NEUTROPHILS # (AUTO) 2.6 X 10^3 (1.8-7.8); NEUTROPHILS % (AUTO) 55 % (42-75); PLATELET COUNT 271 10^3/uL (130-400); RED BLOOD COUNT 3.41 10^6/uL (4.35-5.85); RED CELL DISTRIBUTION WIDTH 16.6 % (10.0-14.5); WHITE BLOOD COUNT 4.6 10^3/uL (4.3-11.0)
[2017-02-19 09:48] LABS: ANION GAP 8 MMOL/L (5-14); BLOOD UREA NITROGEN 7 MG/DL (7-18); BUN/CREATININE RATIO 11; CALCIUM 9.1 MG/DL (8.5-10.1); CARBON DIOXIDE 27 MMOL/L (21-32); CHLORIDE 103 MMOL/L (98-107); CREATININE SERUM 0.64 MG/DL (0.60-1.30); GFR ESTIMATED > 60; GLUCOSE 81 MG/DL (70-105); POTASSIUM 3.8 MMOL/L (3.6-5.0); SODIUM 138 MMOL/L (135-145)
[2017-02-19 09:54] LABS: ANISOCYTOSIS SLIGHT; BAND NEUTROPHILS 1 %; BASOPHILS % (MANUAL) 1 %; EOSINOPHILS % (MANUAL) 0 %; LYMPHOCYTES % (MANUAL) 35 %; METAMYELOCYTES % 1 %; MYELOCYTES % 1 %; NEUTROPHILS % (MANUAL) 50 %; POIKILOCYTOSIS SLIGHT; REACTIVE LYMPHOCYTES 2 %
[~2017-02-26 08:53] MED LIST changes: -ATROPINE INJ 0.4 MG/ML SDV (CANCER CENTER) INJ SCH; -D5W 500 ML IV (CANCER CTR) 500 ML IV SCH; -DEXAMETHASONE IV ONE; +FLU TRIvalent (5 YOA+) 2017-18 (AFLURIA) 0.5 ML IM ONE; -FLUOROURACIL 600 MG in SYRINGE-IVPB 1 SYRINGE IV SCH; -FLUOROURACIL IV SCH; -FOSAPREPITANT 150 MG/NS 150 MG IVPB (CANCER CTR) IV PRN; -IRINOTECAN HCL 200 MG, IRINOTECAN HCL 50 MG in D5W 250 ML IVPB (CANCER CTR) 250 ML IV SCH; -LEUCOVORIN CALCIUM 600 MG in D5W 250 ML IVPB (CANCER CTR) 250 ML IV SCH; -NS (IVPB) CANCER CENTER 250 ML ONE; -NS IV 1000 ML (CANCER CTR) 1,000 ML ONE; -NS IV SCH; -ONDANSETRON 8 MG, DEXAMETHASONE 4 MG/NS 50 ML IVPB (Cancer Ctr) IV ONE; -ONDANSETRON IV ONE; -OXALIPLATIN 100 MG, OXALIPLATIN (GENERIC) 20 MG in D5W 250 ML IVPB (CANCER CTR) 250 ML IV SCH; -POTASSIUM CHL INJ (CANCER CTR) 20 MEQ in NS IV 1000 ML (CANCER CTR) 1,000 ML IV ONE; -[UNRECOGNIZED DRUG - OTHER] IV ONE; -diphenhydrAMINE 50 MG/ML INJ (CANCER CENTER) ONE; -methylPREDNISolone 125 MG/2 ML (SOLU-MEDROL) CANCER CTR ONE
[2017-02-26 09:13] LABS: BASOPHILS % (AUTO) 1 % (0-10); EOSINOPHILS % (AUTO) 1 % (0-10); LYMPHOCYTES # (AUTO) 1.4 X 10^3 (1.0-4.0); LYMPHOCYTES % (AUTO) 74 % (12-44); MEAN CORPUSCULAR HEMOGLOBIN 30 PG (25-34); MEAN CORPUSCULAR HGB CONC 32 G/DL (32-36); MEAN CORPUSCULAR VOLUME 94 FL (80-99); MEAN PLATELET VOLUME 8.7 FL (7.4-10.4); MONOCYTES # (AUTO) 0.1 X 10^3 (0.0-1.0); MONOCYTES % (AUTO) 7 % (0-12); NEUTROPHILS # (AUTO) 0.3 X 10^3 (1.8-7.8); NEUTROPHILS % (AUTO) 18 % (42-75); PLATELET COUNT 112 10^3/uL (130-400); RED BLOOD COUNT 3.16 10^6/uL (4.35-5.85); WHITE BLOOD COUNT 1.9 10^3/uL (4.3-11.0)
[2017-02-26 09:31] LABS: ANION GAP 6 MMOL/L (5-14); BLOOD UREA NITROGEN 9 MG/DL (7-18); BUN/CREATININE RATIO 13; CALCIUM 8.7 MG/DL (8.5-10.1); CARBON DIOXIDE 29 MMOL/L (21-32); CHLORIDE 105 MMOL/L (98-107); GFR ESTIMATED > 60; GLUCOSE 75 MG/DL (70-105); POTASSIUM 4.1 MMOL/L (3.6-5.0); SODIUM 140 MMOL/L (135-145)
[2017-03-07 08:56] LABS: BASOPHILS % (AUTO) 1 % (0-10); EOSINOPHILS # (AUTO) 0.1 10^3/uL (0.0-0.3); EOSINOPHILS % (AUTO) 2 % (0-10); LYMPHOCYTES # (AUTO) 1.6 X 10^3 (1.0-4.0); LYMPHOCYTES % (AUTO) 41 % (12-44); MEAN CORPUSCULAR HEMOGLOBIN 30 PG (25-34); MEAN CORPUSCULAR HGB CONC 32 G/DL (32-36); MEAN CORPUSCULAR VOLUME 94 FL (80-99); MEAN PLATELET VOLUME 9.2 FL (7.4-10.4); MONOCYTES # (AUTO) 0.5 X 10^3 (0.0-1.0); MONOCYTES % (AUTO) 12 % (0-12); NEUTROPHILS # (AUTO) 1.7 X 10^3 (1.8-7.8); NEUTROPHILS % (AUTO) 44 % (42-75); PLATELET COUNT 378 10^3/uL (130-400); RED BLOOD COUNT 3.33 10^6/uL (4.35-5.85); RED CELL DISTRIBUTION WIDTH 17.1 % (10.0-14.5)
[2017-03-07 09:16] LABS: ALANINE AMINOTRANSFERASE 36 U/L (0-55); ALBUMIN 3.4 GM/DL (3.2-4.5); ANION GAP 8 MMOL/L (5-14); ASPARTATE AMINO TRANSFERASE 37 U/L (5-34); BILIRUBIN,TOTAL 0.3 MG/DL (0.1-1.0); BLOOD UREA NITROGEN 7 MG/DL (7-18); BUN/CREATININE RATIO 10; CALCIUM 8.7 MG/DL (8.5-10.1); CARBON DIOXIDE 26 MMOL/L (21-32); CHLORIDE 108 MMOL/L (98-107); CREATININE SERUM 0.73 MG/DL (0.60-1.30); GFR ESTIMATED > 60; GLUCOSE 131 MG/DL (70-105); POTASSIUM 3.5 MMOL/L (3.6-5.0); SODIUM 142 MMOL/L (135-145); TOTAL PROTEIN 5.8 GM/DL (6.4-8.2)
== END 2017-03-06 15:44 | disposition home or self-care (01) ==
LOC: ONC 08:53
PROVIDERS: ATTEND Internal Medicine Hematology & Oncology
DX: Z51.11 Encounter for antineoplastic chemotherapy (principal); C25.1 Malignant neoplasm of body of pancreas; E03.9 Hypothyroidism, unspecified; F32.9 Major depressive disorder, single episode, unspecified; Z79.899 Other long term (current) drug therapy; Z23 Encounter for immunization
CPT/HCPCS: 36591; 80048; 85007; 85025; 85027; 90471; 96367; 96375; 96413; 96417

== ENCOUNTER 2017-04-30 08:09 | Outpatient (RCR) | payer BC ==
[2017-03-07 08:56] LABS: BASOPHILS % (AUTO) 1 % (0-10); EOSINOPHILS # (AUTO) 0.1 10^3/uL (0.0-0.3); EOSINOPHILS % (AUTO) 2 % (0-10); HEMATOCRIT 31 % (35-52); HEMOGLOBIN 9.9 G/DL (11.5-16.0); LYMPHOCYTES # (AUTO) 1.6 X 10^3 (1.0-4.0); LYMPHOCYTES % (AUTO) 41 % (12-44); MEAN CORPUSCULAR HEMOGLOBIN 30 PG (25-34); MEAN CORPUSCULAR HGB CONC 32 G/DL (32-36); MEAN CORPUSCULAR VOLUME 94 FL (80-99); MEAN PLATELET VOLUME 9.2 FL (7.4-10.4); MONOCYTES # (AUTO) 0.5 X 10^3 (0.0-1.0); MONOCYTES % (AUTO) 12 % (0-12); NEUTROPHILS # (AUTO) 1.7 X 10^3 (1.8-7.8); NEUTROPHILS % (AUTO) 44 % (42-75); PLATELET COUNT 378 10^3/uL (130-400); RED BLOOD COUNT 3.33 10^6/uL (4.35-5.85); RED CELL DISTRIBUTION WIDTH 17.1 % (10.0-14.5)
[2017-03-07 09:16] LABS: ALANINE AMINOTRANSFERASE 36 U/L (0-55); ALBUMIN 3.4 GM/DL (3.2-4.5); ALKALINE PHOSPHATASE 70 U/L (40-136); BILIRUBIN,TOTAL 0.3 MG/DL (0.1-1.0); BUN/CREATININE RATIO 10; CALCIUM 8.7 MG/DL (8.5-10.1); CARBON DIOXIDE 26 MMOL/L (21-32); CHLORIDE 108 MMOL/L (98-107); CREATININE SERUM 0.73 MG/DL (0.60-1.30); GFR ESTIMATED > 60; GLUCOSE 131 MG/DL (70-105); POTASSIUM 3.5 MMOL/L (3.6-5.0); SODIUM 142 MMOL/L (135-145); TOTAL PROTEIN 5.8 GM/DL (6.4-8.2)
[2017-03-13 08:50] LABS: BASOPHILS % (AUTO) 1 % (0-10); EOSINOPHILS % (AUTO) 1 % (0-10); HEMATOCRIT 32 % (35-52); HEMOGLOBIN 10.3 G/DL (11.5-16.0); LYMPHOCYTES # (AUTO) 1.2 X 10^3 (1.0-4.0); LYMPHOCYTES % (AUTO) 44 % (12-44); MEAN CORPUSCULAR HEMOGLOBIN 30 PG (25-34); MEAN CORPUSCULAR HGB CONC 32 G/DL (32-36); MEAN CORPUSCULAR VOLUME 94 FL (80-99); MEAN PLATELET VOLUME 9.3 FL (7.4-10.4); MONOCYTES # (AUTO) 0.2 X 10^3 (0.0-1.0); MONOCYTES % (AUTO) 6 % (0-12); NEUTROPHILS # (AUTO) 1.4 X 10^3 (1.8-7.8); NEUTROPHILS % (AUTO) 49 % (42-75); PLATELET COUNT 318 10^3/uL (130-400); RED BLOOD COUNT 3.42 10^6/uL (4.35-5.85); RED CELL DISTRIBUTION WIDTH 16.6 % (10.0-14.5); WHITE BLOOD COUNT 2.8 10^3/uL (4.3-11.0)
[2017-03-13 09:06] LABS: BUN/CREATININE RATIO 10; CALCIUM 8.8 MG/DL (8.5-10.1); CARBON DIOXIDE 27 MMOL/L (21-32); CHLORIDE 106 MMOL/L (98-107); GFR ESTIMATED > 60; GLUCOSE 90 MG/DL (70-105); POTASSIUM 3.7 MMOL/L (3.6-5.0); SODIUM 139 MMOL/L (135-145)
[2017-03-20 12:23] LABS: BASOPHILS % (AUTO) 1 % (0-10); EOSINOPHILS % (AUTO) 0 % (0-10); HEMATOCRIT 35 % (35-52); HEMOGLOBIN 11.2 G/DL (11.5-16.0); LYMPHOCYTES # (AUTO) 2.1 X 10^3 (1.0-4.0); LYMPHOCYTES % (AUTO) 71 % (12-44); MEAN CORPUSCULAR HEMOGLOBIN 30 PG (25-34); MEAN CORPUSCULAR HGB CONC 32 G/DL (32-36); MEAN CORPUSCULAR VOLUME 95 FL (80-99); MONOCYTES # (AUTO) 0.3 X 10^3 (0.0-1.0); MONOCYTES % (AUTO) 10 % (0-12); NEUTROPHILS # (AUTO) 0.5 X 10^3 (1.8-7.8); NEUTROPHILS % (AUTO) 17 % (42-75); PLATELET COUNT 128 10^3/uL (130-400); RED BLOOD COUNT 3.68 10^6/uL (4.35-5.85); RED CELL DISTRIBUTION WIDTH 17.4 % (10.0-14.5)
[2017-03-20 12:40] LABS: BUN/CREATININE RATIO 12; CALCIUM 8.9 MG/DL (8.5-10.1); CARBON DIOXIDE 23 MMOL/L (21-32); CHLORIDE 107 MMOL/L (98-107); CREATININE SERUM 0.74 MG/DL (0.60-1.30); GFR ESTIMATED > 60; GLUCOSE 82 MG/DL (70-105); POTASSIUM 4.3 MMOL/L (3.6-5.0); SODIUM 140 MMOL/L (135-145)
[2017-03-26 09:28] LABS: BASOPHILS % (AUTO) 1 % (0-10); EOSINOPHILS # (AUTO) 0.1 10^3/uL (0.0-0.3); EOSINOPHILS % (AUTO) 3 % (0-10); HEMATOCRIT 32 % (35-52); HEMOGLOBIN 10.1 G/DL (11.5-16.0); LYMPHOCYTES # (AUTO) 1.4 X 10^3 (1.0-4.0); LYMPHOCYTES % (AUTO) 38 % (12-44); MEAN CORPUSCULAR HEMOGLOBIN 30 PG (25-34); MEAN CORPUSCULAR HGB CONC 32 G/DL (32-36); MEAN CORPUSCULAR VOLUME 94 FL (80-99); MEAN PLATELET VOLUME 9.4 FL (7.4-10.4); MONOCYTES # (AUTO) 0.8 X 10^3 (0.0-1.0); MONOCYTES % (AUTO) 22 % (0-12); NEUTROPHILS # (AUTO) 1.4 X 10^3 (1.8-7.8); NEUTROPHILS % (AUTO) 37 % (42-75); PLATELET COUNT 195 10^3/uL (130-400); RED BLOOD COUNT 3.35 10^6/uL (4.35-5.85); RED CELL DISTRIBUTION WIDTH 16.8 % (10.0-14.5); WHITE BLOOD COUNT 3.7 10^3/uL (4.3-11.0)
[2017-03-26 09:43] LABS: ALANINE AMINOTRANSFERASE 37 U/L (0-55); ALBUMIN 3.7 GM/DL (3.2-4.5); ALKALINE PHOSPHATASE 68 U/L (40-136); BILIRUBIN,TOTAL 0.4 MG/DL (0.1-1.0); BUN/CREATININE RATIO 10; CALCIUM 8.8 MG/DL (8.5-10.1); CARBON DIOXIDE 27 MMOL/L (21-32); CHLORIDE 108 MMOL/L (98-107); GFR ESTIMATED > 60; GLUCOSE 82 MG/DL (70-105); POTASSIUM 3.8 MMOL/L (3.6-5.0); SODIUM 141 MMOL/L (135-145); TOTAL PROTEIN 5.8 GM/DL (6.4-8.2)
[2017-04-02 09:03] LABS: BASOPHILS % (AUTO) 0 % (0-10); EOSINOPHILS % (AUTO) 1 % (0-10); HEMATOCRIT 33 % (35-52); HEMOGLOBIN 10.4 G/DL (11.5-16.0); LYMPHOCYTES % (AUTO) 17 % (12-44); MEAN CORPUSCULAR HEMOGLOBIN 30 PG (25-34); MEAN CORPUSCULAR HGB CONC 32 G/DL (32-36); MEAN CORPUSCULAR VOLUME 95 FL (80-99); MEAN PLATELET VOLUME 9.4 FL (7.4-10.4); MONOCYTES # (AUTO) 0.7 X 10^3 (0.0-1.0); MONOCYTES % (AUTO) 11 % (0-12); NEUTROPHILS # (AUTO) 4.2 X 10^3 (1.8-7.8); NEUTROPHILS % (AUTO) 71 % (42-75); PLATELET COUNT 272 10^3/uL (130-400); RED BLOOD COUNT 3.42 10^6/uL (4.35-5.85); RED CELL DISTRIBUTION WIDTH 16.1 % (10.0-14.5)
[2017-04-02 09:18] LABS: BUN/CREATININE RATIO 10; CALCIUM 9.3 MG/DL (8.5-10.1); CARBON DIOXIDE 27 MMOL/L (21-32); CHLORIDE 105 MMOL/L (98-107); CREATININE SERUM 0.69 MG/DL (0.60-1.30); GFR ESTIMATED > 60; GLUCOSE 79 MG/DL (70-105); SODIUM 139 MMOL/L (135-145)
[2017-04-09 09:11] LABS: BASOPHILS % (AUTO) 1 % (0-10); EOSINOPHILS % (AUTO) 1 % (0-10); HEMATOCRIT 33 % (35-52); HEMOGLOBIN 10.6 G/DL (11.5-16.0); LYMPHOCYTES # (AUTO) 1.1 X 10^3 (1.0-4.0); LYMPHOCYTES % (AUTO) 35 % (12-44); MEAN CORPUSCULAR HEMOGLOBIN 31 PG (25-34); MEAN CORPUSCULAR HGB CONC 32 G/DL (32-36); MEAN CORPUSCULAR VOLUME 95 FL (80-99); MEAN PLATELET VOLUME 8.9 FL (7.4-10.4); MONOCYTES # (AUTO) 0.4 X 10^3 (0.0-1.0); MONOCYTES % (AUTO) 11 % (0-12); NEUTROPHILS # (AUTO) 1.6 X 10^3 (1.8-7.8); NEUTROPHILS % (AUTO) 52 % (42-75); PLATELET COUNT 116 10^3/uL (130-400); RED BLOOD COUNT 3.47 10^6/uL (4.35-5.85); WHITE BLOOD COUNT 3.1 10^3/uL (4.3-11.0)
[2017-04-09 09:38] LABS: BUN/CREATININE RATIO 12; CALCIUM 9.2 MG/DL (8.5-10.1); CARBON DIOXIDE 24 MMOL/L (21-32); CHLORIDE 106 MMOL/L (98-107); CREATININE SERUM 0.76 MG/DL (0.60-1.30); GFR ESTIMATED > 60; GLUCOSE 98 MG/DL (70-105); SODIUM 140 MMOL/L (135-145)
[2017-04-16 08:37] LABS: BASOPHILS % (AUTO) 1 % (0-10); EOSINOPHILS # (AUTO) 0.1 10^3/uL (0.0-0.3); EOSINOPHILS % (AUTO) 3 % (0-10); HEMATOCRIT 32 % (35-52); HEMOGLOBIN 10.3 G/DL (11.5-16.0); LYMPHOCYTES # (AUTO) 1.8 X 10^3 (1.0-4.0); LYMPHOCYTES % (AUTO) 45 % (12-44); MEAN CORPUSCULAR HEMOGLOBIN 31 PG (25-34); MEAN CORPUSCULAR HGB CONC 32 G/DL (32-36); MEAN CORPUSCULAR VOLUME 96 FL (80-99); MEAN PLATELET VOLUME 8.7 FL (7.4-10.4); MONOCYTES # (AUTO) 0.8 X 10^3 (0.0-1.0); MONOCYTES % (AUTO) 19 % (0-12); NEUTROPHILS # (AUTO) 1.3 X 10^3 (1.8-7.8); NEUTROPHILS % (AUTO) 32 % (42-75); PLATELET COUNT 331 10^3/uL (130-400); RED BLOOD COUNT 3.35 10^6/uL (4.35-5.85); RED CELL DISTRIBUTION WIDTH 15.6 % (10.0-14.5)
[2017-04-16 08:55] LABS: ALANINE AMINOTRANSFERASE 26 U/L (0-55); ALBUMIN 3.6 GM/DL (3.2-4.5); ALKALINE PHOSPHATASE 71 U/L (40-136); BILIRUBIN,TOTAL 0.2 MG/DL (0.1-1.0); BUN/CREATININE RATIO 10; CALCIUM 8.6 MG/DL (8.5-10.1); CARBON DIOXIDE 28 MMOL/L (21-32); CHLORIDE 104 MMOL/L (98-107); GFR ESTIMATED > 60; GLUCOSE 66 MG/DL (70-105); SODIUM 139 MMOL/L (135-145)
[2017-04-23 08:49] LABS: BASOPHILS % (AUTO) 2 % (0-10); EOSINOPHILS % (AUTO) 1 % (0-10); HEMATOCRIT 33 % (35-52); HEMOGLOBIN 10.4 G/DL (11.5-16.0); LYMPHOCYTES % (AUTO) 42 % (12-44); MEAN CORPUSCULAR HEMOGLOBIN 30 PG (25-34); MEAN CORPUSCULAR HGB CONC 31 G/DL (32-36); MEAN CORPUSCULAR VOLUME 96 FL (80-99); MEAN PLATELET VOLUME 9.1 FL (7.4-10.4); MONOCYTES # (AUTO) 0.4 X 10^3 (0.0-1.0); MONOCYTES % (AUTO) 16 % (0-12); NEUTROPHILS # (AUTO) 0.9 X 10^3 (1.8-7.8); NEUTROPHILS % (AUTO) 39 % (42-75); PLATELET COUNT 275 10^3/uL (130-400); RED BLOOD COUNT 3.46 10^6/uL (4.35-5.85); RED CELL DISTRIBUTION WIDTH 15.3 % (10.0-14.5); WHITE BLOOD COUNT 2.3 10^3/uL (4.3-11.0)
[2017-04-23 09:09] LABS: BUN/CREATININE RATIO 14; CALCIUM 8.7 MG/DL (8.5-10.1); CARBON DIOXIDE 29 MMOL/L (21-32); CHLORIDE 103 MMOL/L (98-107); CREATININE SERUM 0.64 MG/DL (0.60-1.30); GFR ESTIMATED > 60; GLUCOSE 82 MG/DL (70-105); SODIUM 139 MMOL/L (135-145)
[~2017-04-30] VITALS: Ht 150.4 cm; Wt 54.9 kg
[~2017-04-30 08:09] MED LIST changes: +ACHD5005 PO; -BARIUM SUSPENSION 2.1% (VANILLA SILQ) 450 ML PO ONE; +CTR IV SCH; +FOSAPREPITANT DIMEGLUMINE 150 MG in NS (IVPB) CANCER CENTER ONLY 150 ML IV SCH; +GEMCITABINE HCL IV SCH; -HYDR-3812 PO; -IOHEXOL 350 MG/ML 100 ML (OMNIPAQUE 350) VIAL IV ONE; -NS 100 ML (IVPB) BAG IV ONE; +NS IV 500 ML (CANCER CENTER) IV SCH; +PACLITAXEL PROTEIN IV SCH; +PALONOSETRON 0.25 MG, DEXAMETHASONE 10 MG/NS 50 ML IVPB IV PRN; +[UNRECOGNIZED DRUG - OTHER] IV SCH; +[UNRECOGNIZED DRUG - OTHER] IV SCH
[2017-04-30 08:26] LABS: BASOPHILS % (AUTO) 0 % (0-10); EOSINOPHILS % (AUTO) 0 % (0-10); HEMATOCRIT 32 % (35-52); HEMOGLOBIN 10.1 G/DL (11.5-16.0); LYMPHOCYTES # (AUTO) 1.6 X 10^3 (1.0-4.0); LYMPHOCYTES % (AUTO) 69 % (12-44); MEAN CORPUSCULAR HEMOGLOBIN 31 PG (25-34); MEAN CORPUSCULAR HGB CONC 32 G/DL (32-36); MEAN CORPUSCULAR VOLUME 97 FL (80-99); MEAN PLATELET VOLUME 9.6 FL (7.4-10.4); MONOCYTES # (AUTO) 0.2 X 10^3 (0.0-1.0); MONOCYTES % (AUTO) 10 % (0-12); NEUTROPHILS # (AUTO) 0.5 X 10^3 (1.8-7.8); NEUTROPHILS % (AUTO) 21 % (42-75); PLATELET COUNT 108 10^3/uL (130-400); RED BLOOD COUNT 3.31 10^6/uL (4.35-5.85); RED CELL DISTRIBUTION WIDTH 15.4 % (10.0-14.5); WHITE BLOOD COUNT 2.3 10^3/uL (4.3-11.0)
[2017-04-30 08:51] LABS: BUN/CREATININE RATIO 11; CALCIUM 8.6 MG/DL (8.5-10.1); CARBON DIOXIDE 24 MMOL/L (21-32); CHLORIDE 104 MMOL/L (98-107); CREATININE SERUM 0.65 MG/DL (0.60-1.30); GFR ESTIMATED > 60; GLUCOSE 70 MG/DL (70-105); POTASSIUM 3.9 MMOL/L (3.6-5.0); SODIUM 137 MMOL/L (135-145)
== END 2017-05-02 14:14 | disposition home or self-care (01) ==
LOC: ONC 08:09
PROVIDERS: ATTEND Internal Medicine Hematology & Oncology
DX: Z51.11 Encounter for antineoplastic chemotherapy (principal); C25.1 Malignant neoplasm of body of pancreas; E03.9 Hypothyroidism, unspecified; F32.9 Major depressive disorder, single episode, unspecified; Z79.899 Other long term (current) drug therapy
CPT/HCPCS: 36415; 36591; 80048; 80053; 84443; 85025; 86301; 87804; 96367; 96375; 96413; 96417

== ENCOUNTER → 2017-04-30 | Outpatient (CLI) | payer BC ==
[~2017-04-30] MED LIST changes: +BARIUM SUSPENSION 2.1% (VANILLA SILQ) 450 ML PO ONE; -CTR IV SCH; -FLU TRIvalent (5 YOA+) 2017-18 (AFLURIA) 0.5 ML IM ONE; -FOSAPREPITANT DIMEGLUMINE 150 MG in NS (IVPB) CANCER CENTER ONLY 150 ML IV SCH; -GEMCITABINE HCL IV SCH; +IOHEXOL 350 MG/ML 100 ML (OMNIPAQUE 350) VIAL IV ONE; +NS 100 ML (IVPB) BAG IV ONE; -NS IV 500 ML (CANCER CENTER) IV SCH; -PACLITAXEL PROTEIN IV SCH; -PALONOSETRON 0.25 MG, DEXAMETHASONE 10 MG/NS 50 ML IVPB IV PRN; -[UNRECOGNIZED DRUG - OTHER] IV SCH
--- NOTE | 2017-04-30 09:37 | Diagnostic Imaging Report ---
PROCEDURE: CT chest with contrast, CT abdomen and pelvis with and without contrast. TECHNIQUE: Pre and post intravenous contrast axial imaging of the abdomen and pelvis and post contrast axial imaging of the chest were performed. INDICATION: Pancreatic malignancy. COMPARISON: Exam interpreted in correlation with CT fusion PET 12/10/2016. Also correlated with CT evaluations more recently from outside facility 03/03/2017. FINDINGS: CHEST: No dominant lung mass or suspicious pulmonary parenchymal nodularity. There is no hilar or mediastinal lymphadenopathy. There is no pleural or pericardial effusion. No acute or destructive osseous abnormality. ABDOMEN AND PELVIS: Heterogeneous density morphology and enhancement in the pancreas epicenter at the body neck junction was very well seen on the recent outside study however cannot be clearly delineated at this exam. The pancreatic duct was nondilated and the pancreatic tail shows no atrophy. There is no bile duct dilatation. Hepatic cysts are stable with no solid or enhancing liver mass. Chronic steatosis stable. Subtle hazy induration and tissue like density peripheral to the celiac axis is a redemonstrated finding but much less conspicuous than on prior. There is no abdominopelvic ascites. There is no bowel, biliary or urinary tract obstruction. Pancolonic constipation without focal impaction is noted. The adrenals are negative. The kidneys negative. There is no lymphadenopathy. There is no ascites. The urinary bladder unremarkable. No adnexal lesion, the uterus absent. The appendix normal. No suspicious osseous lesion. IMPRESSION: CHEST: No findings of thoracic metastasis. ABDOMEN: Marked reduction in soft tissue induration and infiltration peripheral to the celiac and its proximal branches. Hypodense infiltration of the pancreas itself cannot be clearly measured on followup, much improved from prior. There is no pancreatic ductal dilatation or distal atrophy and there has been no adverse development. No ascites, acute fluid collection or adenopathy. Benign hepatic cyst and hepatic steatosis stable. PELVIS: Nonobstructing constipation. Negative appendix. No adnexal lesion. No pelvic adenopathy or suspicious bony lesion. Dictated by: Dictated on workstation # [id number]
== END ==
LOC: RAD 07:21
PROVIDERS: ATTEND Internal Medicine Hematology & Oncology
DX: C25.1 Malignant neoplasm of body of pancreas (principal); K59.09 Other constipation
CPT/HCPCS: 71260; 74178

== ENCOUNTER 2017-05-14 09:25 | Outpatient (RCR) | payer BC ==
[2017-05-06 14:55] LABS: BASOPHILS % (AUTO) 0 % (0-10); EOSINOPHILS # (AUTO) 0.1 10^3/uL (0.0-0.3); EOSINOPHILS % (AUTO) 2 % (0-10); HEMATOCRIT 30 % (35-52); HEMOGLOBIN 9.7 G/DL (11.5-16.0); LYMPHOCYTES # (AUTO) 1.2 X 10^3 (1.0-4.0); LYMPHOCYTES % (AUTO) 35 % (12-44); MEAN CORPUSCULAR HEMOGLOBIN 31 PG (25-34); MEAN CORPUSCULAR HGB CONC 32 G/DL (32-36); MEAN CORPUSCULAR VOLUME 96 FL (80-99); MEAN PLATELET VOLUME 9.2 FL (7.4-10.4); MONOCYTES # (AUTO) 0.6 X 10^3 (0.0-1.0); MONOCYTES % (AUTO) 17 % (0-12); NEUTROPHILS # (AUTO) 1.5 X 10^3 (1.8-7.8); NEUTROPHILS % (AUTO) 46 % (42-75); PLATELET COUNT 216 10^3/uL (130-400); RED BLOOD COUNT 3.15 10^6/uL (4.35-5.85); RED CELL DISTRIBUTION WIDTH 15.4 % (10.0-14.5); WHITE BLOOD COUNT 3.4 10^3/uL (4.3-11.0)
[2017-05-06 15:16] LABS: ALANINE AMINOTRANSFERASE 31 U/L (0-55); ALBUMIN 3.5 GM/DL (3.2-4.5); ALKALINE PHOSPHATASE 66 U/L (40-136); BILIRUBIN,TOTAL 0.2 MG/DL (0.1-1.0); BUN/CREATININE RATIO 10; CALCIUM 8.4 MG/DL (8.5-10.1); CARBON DIOXIDE 28 MMOL/L (21-32); CHLORIDE 108 MMOL/L (98-107); CREATININE SERUM 0.72 MG/DL (0.60-1.30); GFR ESTIMATED > 60; GLUCOSE 120 MG/DL (70-105); POTASSIUM 3.9 MMOL/L (3.6-5.0); SODIUM 143 MMOL/L (135-145); TOTAL PROTEIN 5.5 GM/DL (6.4-8.2)
[~2017-05-14] VITALS: Ht 150.4 cm; Wt 55.3 kg
[~2017-05-14 09:25] MED LIST changes: +PALONOSETRON HCL 0.25 MG, DEXAMETHASONE PF INJ (CANCER C 10 MG in D5W 50 ML IV(CANCER C... IV PRN
[2017-05-14 10:08] LABS: BASOPHILS % (AUTO) 1 % (0-10); EOSINOPHILS # (AUTO) 0.1 10^3/uL (0.0-0.3); EOSINOPHILS % (AUTO) 2 % (0-10); HEMATOCRIT 35 % (35-52); HEMOGLOBIN 10.8 G/DL (11.5-16.0); LYMPHOCYTES # (AUTO) 1.2 X 10^3 (1.0-4.0); LYMPHOCYTES % (AUTO) 32 % (12-44); MEAN CORPUSCULAR HEMOGLOBIN 29 PG (25-34); MEAN CORPUSCULAR HGB CONC 31 G/DL (32-36); MEAN CORPUSCULAR VOLUME 95 FL (80-99); MEAN PLATELET VOLUME 9.2 FL (7.4-10.4); MONOCYTES # (AUTO) 0.6 X 10^3 (0.0-1.0); MONOCYTES % (AUTO) 16 % (0-12); NEUTROPHILS # (AUTO) 1.9 X 10^3 (1.8-7.8); NEUTROPHILS % (AUTO) 50 % (42-75); PLATELET COUNT 345 10^3/uL (130-400); RED BLOOD COUNT 3.68 10^6/uL (4.35-5.85); WHITE BLOOD COUNT 3.9 10^3/uL (4.3-11.0)
[2017-05-14 10:27] LABS: BUN/CREATININE RATIO 11; CALCIUM 8.8 MG/DL (8.5-10.1); CARBON DIOXIDE 25 MMOL/L (21-32); CHLORIDE 109 MMOL/L (98-107); CREATININE SERUM 0.65 MG/DL (0.60-1.30); GFR ESTIMATED > 60; GLUCOSE 105 MG/DL (70-105); POTASSIUM 3.9 MMOL/L (3.6-5.0); SODIUM 142 MMOL/L (135-145)
[2017-05-21 08:53] LABS: BASOPHILS % (AUTO) 1 % (0-10); EOSINOPHILS % (AUTO) 1 % (0-10); HEMATOCRIT 34 % (35-52); HEMOGLOBIN 10.7 G/DL (11.5-16.0); LYMPHOCYTES # (AUTO) 1.2 X 10^3 (1.0-4.0); LYMPHOCYTES % (AUTO) 50 % (12-44); MEAN CORPUSCULAR HEMOGLOBIN 30 PG (25-34); MEAN CORPUSCULAR HGB CONC 32 G/DL (32-36); MEAN CORPUSCULAR VOLUME 94 FL (80-99); MEAN PLATELET VOLUME 9.6 FL (7.4-10.4); MONOCYTES # (AUTO) 0.4 X 10^3 (0.0-1.0); MONOCYTES % (AUTO) 16 % (0-12); NEUTROPHILS # (AUTO) 0.7 X 10^3 (1.8-7.8); NEUTROPHILS % (AUTO) 32 % (42-75); PLATELET COUNT 173 10^3/uL (130-400); RED BLOOD COUNT 3.61 10^6/uL (4.35-5.85); RED CELL DISTRIBUTION WIDTH 14.7 % (10.0-14.5); WHITE BLOOD COUNT 2.3 10^3/uL (4.3-11.0)
[2017-05-21 09:07] LABS: BUN/CREATININE RATIO 15; CALCIUM 8.9 MG/DL (8.5-10.1); CARBON DIOXIDE 24 MMOL/L (21-32); CHLORIDE 106 MMOL/L (98-107); CREATININE SERUM 0.61 MG/DL (0.60-1.30); GFR ESTIMATED > 60; GLUCOSE 99 MG/DL (70-105); POTASSIUM 3.8 MMOL/L (3.6-5.0); SODIUM 141 MMOL/L (135-145)
== END 2017-05-21 09:21 | disposition home or self-care (01) ==
LOC: ONC 09:25
PROVIDERS: ATTEND Internal Medicine Hematology & Oncology
DX: Z51.11 Encounter for antineoplastic chemotherapy (principal); C25.1 Malignant neoplasm of body of pancreas; E03.9 Hypothyroidism, unspecified; F32.9 Major depressive disorder, single episode, unspecified; Z79.899 Other long term (current) drug therapy
CPT/HCPCS: 36591; 80048; 80053; 85025; 86301; 96367; 96375; 96413; 96417

== ENCOUNTER → 2017-08-15 | Outpatient (CLI) | payer BC ==
[~2017-08-15] MED LIST changes: +BARIUM SUSPENSION 2.1% (VANILLA SILQ) 450 ML PO ONE; -CTR IV SCH; -FOSAPREPITANT DIMEGLUMINE 150 MG in NS (IVPB) CANCER CENTER ONLY 150 ML IV SCH; -GEMCITABINE HCL IV SCH; +IOHEXOL 350 MG/ML 100 ML (OMNIPAQUE 350) VIAL IV ONE; +NS 250 ML (IVPB) BAG IV ONE; -NS IV 500 ML (CANCER CENTER) IV SCH; -PACLITAXEL PROTEIN IV SCH; -PALONOSETRON 0.25 MG, DEXAMETHASONE 10 MG/NS 50 ML IVPB IV PRN; -PALONOSETRON HCL 0.25 MG, DEXAMETHASONE PF INJ (CANCER C 10 MG in D5W 50 ML IV(CANCER C... IV PRN; -[UNRECOGNIZED DRUG - OTHER] IV SCH; -[UNRECOGNIZED DRUG - OTHER] IV SCH
--- NOTE | 2017-08-15 12:20 | Diagnostic Imaging Report ---
PROCEDURE: CT chest and abdomen with contrast. TECHNIQUE: Multiple contiguous axial images were obtained through the chest and abdomen after the administration of intravenous contrast. INDICATION: Pancreatic carcinoma. COMPARISON: Comparison is made with prior CT from 04/30/2017. CT chest: A left chest wall port remains in place. No axillary lymphadenopathy is identified. No definite hilar or mediastinal lymphadenopathy is detected. No pericardial or pleural fluid is identified. No pulmonary infiltrates, nodules or masses are seen. IMPRESSION: Stable CT of the chest when compared to the exam from 04/30/2017. No thoracic lymphadenopathy or evidence of pulmonary metastatic disease is identified. CT abdomen: Generalized low density throughout the liver is again noted consistent with hepatic steatosis. Low-density lesions within the liver appear stable and most consistent with cysts. No solid liver mass is identified. The gallbladder is unremarkable. The pancreatic head and uncinate are unremarkable. Ill-defined low density along the body of the pancreas as well as in the tissues posterior to the pancreas along the distal aspect of the celiac trunk and its branches appears similar to perhaps slightly less prominent on today's study. There does appear to be further atrophy to the distal pancreatic body and tail since prior. No pancreatic ductal dilatation is seen. The extra hepatic bile duct is mildly prominent, etiology indeterminate. Spleen is unremarkable. No adrenal masses detected. The kidneys are unremarkable. Aorta is nonaneurysmal. There is no ascites. Moderate stool in the colon is seen. IMPRESSION: 1. Soft tissue induration along the celiac trunk as well as posterior to the pancreas including pancreatic body remains present but may be slightly less prominent on today's study. There has been some further atrophy to the pancreatic body and tail since prior exam. Hepatic cysts are stable. No definite evidence of hepatic metastatic disease is identified. Diffuse steatosis is again noted. 2. There is some mild prominence of extrahepatic bile duct, etiology indeterminate. Dictated by: Dictated on workstation # [id number]
== END ==
LOC: RAD 11:03
PROVIDERS: ATTEND Internal Medicine Hematology & Oncology
DX: C25.1 Malignant neoplasm of body of pancreas (principal); K76.0 Fatty (change of) liver, not elsewhere classified; K76.89 Other specified diseases of liver
CPT/HCPCS: 71260; 74160

== ENCOUNTER 2017-08-18 14:12 | Outpatient (RCR) | payer BC ==
[2017-05-28 09:26] LABS: BASOPHILS % (AUTO) 1 % (0-10); EOSINOPHILS # (AUTO) 0.1 10^3/uL (0.0-0.3); EOSINOPHILS % (AUTO) 2 % (0-10); HEMATOCRIT 34 % (35-52); HEMOGLOBIN 11.2 G/DL (11.5-16.0); LYMPHOCYTES # (AUTO) 1.5 X 10^3 (1.0-4.0); LYMPHOCYTES % (AUTO) 46 % (12-44); MEAN CORPUSCULAR HEMOGLOBIN 30 PG (25-34); MEAN CORPUSCULAR HGB CONC 33 G/DL (32-36); MEAN CORPUSCULAR VOLUME 92 FL (80-99); MEAN PLATELET VOLUME 9.8 FL (7.4-10.4); MONOCYTES # (AUTO) 0.6 X 10^3 (0.0-1.0); MONOCYTES % (AUTO) 19 % (0-12); NEUTROPHILS # (AUTO) 1.1 X 10^3 (1.8-7.8); NEUTROPHILS % (AUTO) 32 % (42-75); PLATELET COUNT 131 10^3/uL (130-400); RED BLOOD COUNT 3.74 10^6/uL (4.35-5.85); RED CELL DISTRIBUTION WIDTH 14.3 % (10.0-14.5); WHITE BLOOD COUNT 3.3 10^3/uL (4.3-11.0)
[2017-05-28 09:47] LABS: BUN/CREATININE RATIO 11; CALCIUM 8.8 MG/DL (8.5-10.1); CARBON DIOXIDE 28 MMOL/L (21-32); CHLORIDE 106 MMOL/L (98-107); CREATININE SERUM 0.61 MG/DL (0.60-1.30); GFR ESTIMATED > 60; GLUCOSE 87 MG/DL (70-105); SODIUM 141 MMOL/L (135-145)
[2017-06-03 08:59] LABS: BASOPHILS % (AUTO) 1 % (0-10); EOSINOPHILS # (AUTO) 0.1 10^3/uL (0.0-0.3); EOSINOPHILS % (AUTO) 2 % (0-10); HEMATOCRIT 34 % (35-52); LYMPHOCYTES # (AUTO) 1.6 X 10^3 (1.0-4.0); LYMPHOCYTES % (AUTO) 32 % (12-44); MEAN CORPUSCULAR HEMOGLOBIN 30 PG (25-34); MEAN CORPUSCULAR HGB CONC 32 G/DL (32-36); MEAN CORPUSCULAR VOLUME 92 FL (80-99); MEAN PLATELET VOLUME 9.3 FL (7.4-10.4); MONOCYTES # (AUTO) 0.6 X 10^3 (0.0-1.0); MONOCYTES % (AUTO) 12 % (0-12); NEUTROPHILS # (AUTO) 2.6 X 10^3 (1.8-7.8); NEUTROPHILS % (AUTO) 53 % (42-75); PLATELET COUNT 233 10^3/uL (130-400); RED BLOOD COUNT 3.71 10^6/uL (4.35-5.85); RED CELL DISTRIBUTION WIDTH 14.7 % (10.0-14.5); WHITE BLOOD COUNT 4.9 10^3/uL (4.3-11.0)
[2017-06-03 09:15] LABS: ALANINE AMINOTRANSFERASE 26 U/L (0-55); ALBUMIN 3.6 GM/DL (3.2-4.5); ALKALINE PHOSPHATASE 73 U/L (40-136); BILIRUBIN,TOTAL 0.4 MG/DL (0.1-1.0); BUN/CREATININE RATIO 11; CALCIUM 9.1 MG/DL (8.5-10.1); CARBON DIOXIDE 26 MMOL/L (21-32); CHLORIDE 104 MMOL/L (98-107); CREATININE SERUM 0.64 MG/DL (0.60-1.30); GFR ESTIMATED > 60; GLUCOSE 90 MG/DL (70-105); POTASSIUM 3.6 MMOL/L (3.6-5.0); SODIUM 141 MMOL/L (135-145); TOTAL PROTEIN 6.1 GM/DL (6.4-8.2)
[2017-06-10 10:29] LABS: BASOPHILS % (AUTO) 1 % (0-10); EOSINOPHILS % (AUTO) 2 % (0-10); HEMATOCRIT 35 % (35-52); HEMOGLOBIN 11.4 G/DL (11.5-16.0); LYMPHOCYTES # (AUTO) 1.2 X 10^3 (1.0-4.0); LYMPHOCYTES % (AUTO) 54 % (12-44); MEAN CORPUSCULAR HEMOGLOBIN 30 PG (25-34); MEAN CORPUSCULAR HGB CONC 33 G/DL (32-36); MEAN CORPUSCULAR VOLUME 91 FL (80-99); MONOCYTES # (AUTO) 0.3 X 10^3 (0.0-1.0); MONOCYTES % (AUTO) 12 % (0-12); NEUTROPHILS # (AUTO) 0.7 X 10^3 (1.8-7.8); NEUTROPHILS % (AUTO) 32 % (42-75); PLATELET COUNT 174 10^3/uL (130-400); RED BLOOD COUNT 3.87 10^6/uL (4.35-5.85); RED CELL DISTRIBUTION WIDTH 14.3 % (10.0-14.5); WHITE BLOOD COUNT 2.2 10^3/uL (4.3-11.0)
[2017-06-10 10:48] LABS: BUN/CREATININE RATIO 14; CALCIUM 8.8 MG/DL (8.5-10.1); CARBON DIOXIDE 26 MMOL/L (21-32); CHLORIDE 105 MMOL/L (98-107); CREATININE SERUM 0.65 MG/DL (0.60-1.30); GFR ESTIMATED > 60; GLUCOSE 89 MG/DL (70-105); POTASSIUM 4.1 MMOL/L (3.6-5.0); SODIUM 141 MMOL/L (135-145)
[2017-06-17 09:13] LABS: BASOPHILS % (AUTO) 1 % (0-10); EOSINOPHILS % (AUTO) 1 % (0-10); HEMATOCRIT 36 % (35-52); HEMOGLOBIN 11.8 G/DL (11.5-16.0); LYMPHOCYTES # (AUTO) 1.2 X 10^3 (1.0-4.0); LYMPHOCYTES % (AUTO) 68 % (12-44); MEAN CORPUSCULAR HEMOGLOBIN 29 PG (25-34); MEAN CORPUSCULAR HGB CONC 33 G/DL (32-36); MEAN CORPUSCULAR VOLUME 90 FL (80-99); MEAN PLATELET VOLUME 9.5 FL (7.4-10.4); MONOCYTES # (AUTO) 0.2 X 10^3 (0.0-1.0); MONOCYTES % (AUTO) 13 % (0-12); NEUTROPHILS # (AUTO) 0.3 X 10^3 (1.8-7.8); NEUTROPHILS % (AUTO) 18 % (42-75); PLATELET COUNT 84 10^3/uL (130-400); RED BLOOD COUNT 4.02 10^6/uL (4.35-5.85); RED CELL DISTRIBUTION WIDTH 14.6 % (10.0-14.5); WHITE BLOOD COUNT 1.8 10^3/uL (4.3-11.0)
[2017-06-17 09:48] LABS: BUN/CREATININE RATIO 13; CALCIUM 9.1 MG/DL (8.5-10.1); CARBON DIOXIDE 24 MMOL/L (21-32); CHLORIDE 106 MMOL/L (98-107); CREATININE SERUM 0.69 MG/DL (0.60-1.30); GFR ESTIMATED > 60; GLUCOSE 93 MG/DL (70-105); POTASSIUM 3.9 MMOL/L (3.6-5.0); SODIUM 139 MMOL/L (135-145)
[2017-06-24 13:52] LABS: BASOPHILS % (AUTO) 1 % (0-10); EOSINOPHILS % (AUTO) 1 % (0-10); HEMATOCRIT 34 % (35-52); LYMPHOCYTES # (AUTO) 1.3 X 10^3 (1.0-4.0); LYMPHOCYTES % (AUTO) 45 % (12-44); MEAN CORPUSCULAR HEMOGLOBIN 29 PG (25-34); MEAN CORPUSCULAR HGB CONC 33 G/DL (32-36); MEAN CORPUSCULAR VOLUME 90 FL (80-99); MEAN PLATELET VOLUME 8.7 FL (7.4-10.4); MONOCYTES # (AUTO) 0.6 X 10^3 (0.0-1.0); MONOCYTES % (AUTO) 19 % (0-12); NEUTROPHILS % (AUTO) 34 % (42-75); PLATELET COUNT 288 10^3/uL (130-400); RED BLOOD COUNT 3.77 10^6/uL (4.35-5.85); RED CELL DISTRIBUTION WIDTH 14.9 % (10.0-14.5); WHITE BLOOD COUNT 2.9 10^3/uL (4.3-11.0)
[2017-06-24 14:16] LABS: ALANINE AMINOTRANSFERASE 20 U/L (0-55); ALBUMIN 3.7 GM/DL (3.2-4.5); ALKALINE PHOSPHATASE 70 U/L (40-136); BILIRUBIN,TOTAL 0.4 MG/DL (0.1-1.0); BUN/CREATININE RATIO 10; CARBON DIOXIDE 26 MMOL/L (21-32); CHLORIDE 106 MMOL/L (98-107); CREATININE SERUM 0.94 MG/DL (0.60-1.30); GFR ESTIMATED > 60; GLUCOSE 89 MG/DL (70-105); POTASSIUM 3.8 MMOL/L (3.6-5.0); SODIUM 138 MMOL/L (135-145); TOTAL PROTEIN 6.1 GM/DL (6.4-8.2)
[2017-07-01 09:31] LABS: BASOPHILS % (AUTO) 1 % (0-10); EOSINOPHILS # (AUTO) 0.1 10^3/uL (0.0-0.3); EOSINOPHILS % (AUTO) 2 % (0-10); HEMATOCRIT 33 % (35-52); HEMOGLOBIN 10.6 G/DL (11.5-16.0); LYMPHOCYTES # (AUTO) 1.4 X 10^3 (1.0-4.0); LYMPHOCYTES % (AUTO) 41 % (12-44); MEAN CORPUSCULAR HEMOGLOBIN 29 PG (25-34); MEAN CORPUSCULAR HGB CONC 32 G/DL (32-36); MEAN CORPUSCULAR VOLUME 90 FL (80-99); MEAN PLATELET VOLUME 9.4 FL (7.4-10.4); MONOCYTES # (AUTO) 0.4 X 10^3 (0.0-1.0); MONOCYTES % (AUTO) 12 % (0-12); NEUTROPHILS # (AUTO) 1.6 X 10^3 (1.8-7.8); NEUTROPHILS % (AUTO) 45 % (42-75); PLATELET COUNT 303 10^3/uL (130-400); RED BLOOD COUNT 3.63 10^6/uL (4.35-5.85); RED CELL DISTRIBUTION WIDTH 14.6 % (10.0-14.5); WHITE BLOOD COUNT 3.5 10^3/uL (4.3-11.0)
[2017-07-01 09:48] LABS: BUN/CREATININE RATIO 9; CALCIUM 8.4 MG/DL (8.5-10.1); CARBON DIOXIDE 24 MMOL/L (21-32); CHLORIDE 108 MMOL/L (98-107); CREATININE SERUM 0.67 MG/DL (0.60-1.30); GFR ESTIMATED > 60; GLUCOSE 76 MG/DL (70-105); SODIUM 142 MMOL/L (135-145)
[2017-07-08 09:24] LABS: BASOPHILS % (AUTO) 0 % (0-10); EOSINOPHILS % (AUTO) 2 % (0-10); HEMATOCRIT 35 % (35-52); HEMOGLOBIN 11.3 G/DL (11.5-16.0); LYMPHOCYTES # (AUTO) 1.5 X 10^3 (1.0-4.0); LYMPHOCYTES % (AUTO) 58 % (12-44); MEAN CORPUSCULAR HEMOGLOBIN 29 PG (25-34); MEAN CORPUSCULAR HGB CONC 33 G/DL (32-36); MEAN CORPUSCULAR VOLUME 89 FL (80-99); MEAN PLATELET VOLUME 10.3 FL (7.4-10.4); MONOCYTES # (AUTO) 0.2 X 10^3 (0.0-1.0); MONOCYTES % (AUTO) 9 % (0-12); NEUTROPHILS # (AUTO) 0.8 X 10^3 (1.8-7.8); NEUTROPHILS % (AUTO) 31 % (42-75); PLATELET COUNT 174 10^3/uL (130-400); RED BLOOD COUNT 3.88 10^6/uL (4.35-5.85); RED CELL DISTRIBUTION WIDTH 14.6 % (10.0-14.5); WHITE BLOOD COUNT 2.5 10^3/uL (4.3-11.0)
[2017-07-08 09:40] LABS: BUN/CREATININE RATIO 14; CALCIUM 8.9 MG/DL (8.5-10.1); CARBON DIOXIDE 26 MMOL/L (21-32); CHLORIDE 106 MMOL/L (98-107); CREATININE SERUM 0.81 MG/DL (0.60-1.30); GFR ESTIMATED > 60; GLUCOSE 95 MG/DL (70-105); POTASSIUM 3.9 MMOL/L (3.6-5.0); SODIUM 139 MMOL/L (135-145)
[2017-07-15 08:56] LABS: BASOPHILS % (AUTO) 1 % (0-10); EOSINOPHILS % (AUTO) 2 % (0-10); HEMATOCRIT 35 % (35-52); HEMOGLOBIN 11.4 G/DL (11.5-16.0); LYMPHOCYTES # (AUTO) 1.3 X 10^3 (1.0-4.0); LYMPHOCYTES % (AUTO) 71 % (12-44); MEAN CORPUSCULAR HEMOGLOBIN 29 PG (25-34); MEAN CORPUSCULAR HGB CONC 32 G/DL (32-36); MEAN CORPUSCULAR VOLUME 90 FL (80-99); MEAN PLATELET VOLUME 9.9 FL (7.4-10.4); MONOCYTES # (AUTO) 0.2 X 10^3 (0.0-1.0); MONOCYTES % (AUTO) 11 % (0-12); NEUTROPHILS # (AUTO) 0.3 X 10^3 (1.8-7.8); NEUTROPHILS % (AUTO) 16 % (42-75); PLATELET COUNT 74 10^3/uL (130-400); RED BLOOD COUNT 3.94 10^6/uL (4.35-5.85); RED CELL DISTRIBUTION WIDTH 14.8 % (10.0-14.5); WHITE BLOOD COUNT 1.8 10^3/uL (4.3-11.0)
[2017-07-15 09:18] LABS: BUN/CREATININE RATIO 14; CALCIUM 8.6 MG/DL (8.5-10.1); CARBON DIOXIDE 26 MMOL/L (21-32); CHLORIDE 107 MMOL/L (98-107); CREATININE SERUM 0.66 MG/DL (0.60-1.30); GFR ESTIMATED > 60; GLUCOSE 94 MG/DL (70-105); POTASSIUM 3.8 MMOL/L (3.6-5.0); SODIUM 139 MMOL/L (135-145)
[2017-07-22 11:21] LABS: BASOPHILS % (AUTO) 1 % (0-10); EOSINOPHILS # (AUTO) 0.1 10^3/uL (0.0-0.3); EOSINOPHILS % (AUTO) 3 % (0-10); HEMATOCRIT 34 % (35-52); LYMPHOCYTES # (AUTO) 1.4 X 10^3 (1.0-4.0); LYMPHOCYTES % (AUTO) 40 % (12-44); MEAN CORPUSCULAR HEMOGLOBIN 29 PG (25-34); MEAN CORPUSCULAR HGB CONC 32 G/DL (32-36); MEAN CORPUSCULAR VOLUME 90 FL (80-99); MEAN PLATELET VOLUME 9.3 FL (7.4-10.4); MONOCYTES # (AUTO) 0.7 X 10^3 (0.0-1.0); MONOCYTES % (AUTO) 19 % (0-12); NEUTROPHILS # (AUTO) 1.3 X 10^3 (1.8-7.8); NEUTROPHILS % (AUTO) 37 % (42-75); PLATELET COUNT 285 10^3/uL (130-400); RED BLOOD COUNT 3.81 10^6/uL (4.35-5.85); RED CELL DISTRIBUTION WIDTH 15.5 % (10.0-14.5); WHITE BLOOD COUNT 3.5 10^3/uL (4.3-11.0)
[2017-07-22 11:38] LABS: ALANINE AMINOTRANSFERASE 18 U/L (0-55); ALBUMIN 3.8 GM/DL (3.2-4.5); ALKALINE PHOSPHATASE 78 U/L (40-136); BILIRUBIN,TOTAL 0.4 MG/DL (0.1-1.0); BUN/CREATININE RATIO 7; CALCIUM 8.5 MG/DL (8.5-10.1); CARBON DIOXIDE 22 MMOL/L (21-32); CHLORIDE 110 MMOL/L (98-107); CREATININE SERUM 0.67 MG/DL (0.60-1.30); GFR ESTIMATED > 60; GLUCOSE 80 MG/DL (70-105); POTASSIUM 3.8 MMOL/L (3.6-5.0); SODIUM 142 MMOL/L (135-145); TOTAL PROTEIN 6.1 GM/DL (6.4-8.2)
--- NOTE | 2017-07-22 13:19 | Diagnostic Imaging Report ---
INDICATION: Patient with indwelling left chest wall port with inability to aspirate blood. Patient presents for port check. TECHNIQUE: The patient was brought to the fluoroscopy suite and placed on the table in the supine position. The left chest wall port was accessed. 13 cc of Omnipaque 300 was injected into the patient's port during fluoroscopic observation. Normal filling of the port tubing is seen. There is free flow of contrast from the tip of the port into the right atrium. No abnormal accumulation of contrast is seen. There is no evidence of kinking or interruption of the tubing. No extravasation is detected. 36 seconds of fluoroscopic time was utilized. IMPRESSION: Unremarkable port check, as described. Dictated by: Dictated on workstation # [id number]
[2017-07-29 09:33] LABS: BASOPHILS % (AUTO) 1 % (0-10); EOSINOPHILS % (AUTO) 1 % (0-10); HEMATOCRIT 34 % (35-52); LYMPHOCYTES # (AUTO) 1.2 X 10^3 (1.0-4.0); LYMPHOCYTES % (AUTO) 67 % (12-44); MEAN CORPUSCULAR HEMOGLOBIN 29 PG (25-34); MEAN CORPUSCULAR HGB CONC 32 G/DL (32-36); MEAN CORPUSCULAR VOLUME 90 FL (80-99); MEAN PLATELET VOLUME 9.7 FL (7.4-10.4); MONOCYTES # (AUTO) 0.2 X 10^3 (0.0-1.0); MONOCYTES % (AUTO) 9 % (0-12); NEUTROPHILS # (AUTO) 0.4 X 10^3 (1.8-7.8); NEUTROPHILS % (AUTO) 23 % (42-75); PLATELET COUNT 293 10^3/uL (130-400); RED BLOOD COUNT 3.83 10^6/uL (4.35-5.85); RED CELL DISTRIBUTION WIDTH 15.2 % (10.0-14.5); WHITE BLOOD COUNT 1.8 10^3/uL (4.3-11.0)
[2017-07-29 09:59] LABS: BUN/CREATININE RATIO 12; CALCIUM 8.9 MG/DL (8.5-10.1); CARBON DIOXIDE 29 MMOL/L (21-32); CHLORIDE 106 MMOL/L (98-107); CREATININE SERUM 0.73 MG/DL (0.60-1.30); GFR ESTIMATED > 60; GLUCOSE 84 MG/DL (70-105); POTASSIUM 3.8 MMOL/L (3.6-5.0); SODIUM 140 MMOL/L (135-145)
[2017-08-05 09:14] LABS: BASOPHILS % (AUTO) 0 % (0-10); EOSINOPHILS # (AUTO) 0.1 10^3/uL (0.0-0.3); EOSINOPHILS % (AUTO) 1 % (0-10); HEMATOCRIT 34 % (35-52); HEMOGLOBIN 10.9 G/DL (11.5-16.0); LYMPHOCYTES # (AUTO) 1.3 X 10^3 (1.0-4.0); LYMPHOCYTES % (AUTO) 28 % (12-44); MEAN CORPUSCULAR HEMOGLOBIN 29 PG (25-34); MEAN CORPUSCULAR HGB CONC 32 G/DL (32-36); MEAN CORPUSCULAR VOLUME 89 FL (80-99); MEAN PLATELET VOLUME 10.1 FL (7.4-10.4); MONOCYTES # (AUTO) 0.6 X 10^3 (0.0-1.0); MONOCYTES % (AUTO) 13 % (0-12); NEUTROPHILS # (AUTO) 2.7 X 10^3 (1.8-7.8); NEUTROPHILS % (AUTO) 58 % (42-75); PLATELET COUNT 117 10^3/uL (130-400); RED CELL DISTRIBUTION WIDTH 15.5 % (10.0-14.5); WHITE BLOOD COUNT 4.6 10^3/uL (4.3-11.0)
[2017-08-05 09:44] LABS: BUN/CREATININE RATIO 10; CALCIUM 8.8 MG/DL (8.5-10.1); CARBON DIOXIDE 26 MMOL/L (21-32); CHLORIDE 106 MMOL/L (98-107); CREATININE SERUM 0.71 MG/DL (0.60-1.30); GFR ESTIMATED > 60; GLUCOSE 96 MG/DL (70-105); POTASSIUM 3.7 MMOL/L (3.6-5.0); SODIUM 140 MMOL/L (135-145)
[2017-08-12 08:43] LABS: BASOPHILS % (AUTO) 1 % (0-10); EOSINOPHILS % (AUTO) 1 % (0-10); HEMATOCRIT 37 % (35-52); HEMOGLOBIN 11.9 G/DL (11.5-16.0); LYMPHOCYTES # (AUTO) 1.4 X 10^3 (1.0-4.0); LYMPHOCYTES % (AUTO) 66 % (12-44); MEAN CORPUSCULAR HEMOGLOBIN 29 PG (25-34); MEAN CORPUSCULAR HGB CONC 33 G/DL (32-36); MEAN CORPUSCULAR VOLUME 88 FL (80-99); MEAN PLATELET VOLUME 10.7 FL (7.4-10.4); MONOCYTES # (AUTO) 0.2 X 10^3 (0.0-1.0); MONOCYTES % (AUTO) 11 % (0-12); NEUTROPHILS # (AUTO) 0.5 X 10^3 (1.8-7.8); NEUTROPHILS % (AUTO) 22 % (42-75); PLATELET COUNT 150 10^3/uL (130-400); RED BLOOD COUNT 4.16 10^6/uL (4.35-5.85); RED CELL DISTRIBUTION WIDTH 15.1 % (10.0-14.5); WHITE BLOOD COUNT 2.2 10^3/uL (4.3-11.0)
[2017-08-12 09:04] LABS: BUN/CREATININE RATIO 14; CALCIUM 9.1 MG/DL (8.5-10.1); CARBON DIOXIDE 27 MMOL/L (21-32); CHLORIDE 104 MMOL/L (98-107); CREATININE SERUM 0.71 MG/DL (0.60-1.30); GFR ESTIMATED > 60; GLUCOSE 80 MG/DL (70-105); POTASSIUM 4.2 MMOL/L (3.6-5.0); SODIUM 138 MMOL/L (135-145)
[~2017-08-18] VITALS: Ht 150.4 cm; Wt 52.2 kg
[~2017-08-18 14:12] MED LIST changes: +ALTEPLASE 2 MG (CATHFLO) CANCER CENTER IV ONE; +CTR IV SCH; +FOSAPREPITANT DIMEGLUMINE 150 MG in NS (IVPB) CANCER CENTER ONLY 150 ML IV SCH; +GEMCITABINE HCL (GENERIC) 1,000 MG, GEMCITABINE HCL (GENERIC) 100 MG in NS (IVPB) CANCE... IV SCH; +GEMCITABINE HCL IV SCH; +IOHEXOL 300 MG/ML 50 ML (OMNIPAQUE 300) VIAL IV ONE; +NS IV 500 ML (CANCER CENTER) IV SCH; +NS IV SCH; +PACLITAXEL PROTEIN IV SCH; +PALONOSETRON HCL 0.25 MG, DEXAMETHASONE PF INJ (CANCER C 10 MG in D5W 50 ML IV(CANCER C... IV PRN; +[UNRECOGNIZED DRUG - OTHER] IV SCH
[2017-08-18 14:50] LABS: BASOPHILS % (AUTO) 0 % (0-10); EOSINOPHILS % (AUTO) 1 % (0-10); HEMATOCRIT 36 % (35-52); HEMOGLOBIN 11.6 G/DL (11.5-16.0); LYMPHOCYTES # (AUTO) 0.8 X 10^3 (1.0-4.0); LYMPHOCYTES % (AUTO) 20 % (12-44); MEAN CORPUSCULAR HEMOGLOBIN 28 PG (25-34); MEAN CORPUSCULAR HGB CONC 32 G/DL (32-36); MEAN CORPUSCULAR VOLUME 87 FL (80-99); MONOCYTES # (AUTO) 0.3 X 10^3 (0.0-1.0); MONOCYTES % (AUTO) 7 % (0-12); NEUTROPHILS # (AUTO) 2.9 X 10^3 (1.8-7.8); NEUTROPHILS % (AUTO) 72 % (42-75); PLATELET COUNT 166 10^3/uL (130-400); RED BLOOD COUNT 4.11 10^6/uL (4.35-5.85); RED CELL DISTRIBUTION WIDTH 15.6 % (10.0-14.5)
[2017-08-18 15:09] LABS: ALANINE AMINOTRANSFERASE 20 U/L (0-55); ALBUMIN 3.9 GM/DL (3.2-4.5); ALKALINE PHOSPHATASE 94 U/L (40-136); BILIRUBIN,TOTAL 0.3 MG/DL (0.1-1.0); BUN/CREATININE RATIO 11; CALCIUM 8.8 MG/DL (8.5-10.1); CARBON DIOXIDE 25 MMOL/L (21-32); CHLORIDE 108 MMOL/L (98-107); CREATININE SERUM 0.66 MG/DL (0.60-1.30); GFR ESTIMATED > 60; GLUCOSE 120 MG/DL (70-105); POTASSIUM 4.2 MMOL/L (3.6-5.0); SODIUM 138 MMOL/L (135-145); TOTAL PROTEIN 6.2 GM/DL (6.4-8.2)
== END 2017-08-19 | disposition home or self-care (01) ==
LOC: ONC 14:12
PROVIDERS: ATTEND Internal Medicine Hematology & Oncology
DX: Z51.11 Encounter for antineoplastic chemotherapy (principal); C25.1 Malignant neoplasm of body of pancreas; E03.9 Hypothyroidism, unspecified; F32.9 Major depressive disorder, single episode, unspecified; Z79.899 Other long term (current) drug therapy; Z45.2 Encounter for adjustment and management of vascular access device
CPT/HCPCS: 36415; 36591; 36593; 36598; 80048; 80053; 84443; 85025; 86301; 96367; 96375; 96413; 96417; 96523

== ENCOUNTER → 2017-08-18 | Outpatient (CLI) | payer BC ==
[~2017-08-18] MED LIST changes: -BARIUM SUSPENSION 2.1% (VANILLA SILQ) 450 ML PO ONE; -IOHEXOL 350 MG/ML 100 ML (OMNIPAQUE 350) VIAL IV ONE; -NS 250 ML (IVPB) BAG IV ONE
--- NOTE | 2017-08-18 15:42 | Diagnostic Imaging Report ---
PROCEDURE: US venous upper extremity left. TECHNIQUE: Multiple Real-time grayscale images were obtained of left upper extremity in various projections. Duplex Doppler and and color Doppler images were also obtained. INDICATION: Pain and swelling. FINDINGS: The left jugular, subclavian, axillary, brachial, and basilic veins demonstrate normal response to compression, augmentation, and Valsalva. The left cephalic vein cannot be visualized. There are no abnormal fluid collections or masses. IMPRESSION: No evidence of deep venous thrombosis in the left upper extremity. The cephalic vein was not visualized. Dictated by: Dictated on workstation # [id number]
== END ==
LOC: RAD 14:55
PROVIDERS: ATTEND Internal Medicine Hematology & Oncology
DX: M79.602 Pain in left arm (principal); R22.32 Localized swelling, mass and lump, left upper limb; C25.1 Malignant neoplasm of body of pancreas

== ENCOUNTER → 2017-10-10 | Outpatient (CLI) | payer BC ==
[~2017-10-10] MED LIST changes: -ALTEPLASE 2 MG (CATHFLO) CANCER CENTER IV ONE; +BARIUM SUSPENSION 2.1% (VANILLA SILQ) 450 ML PO ONE; +CATHETER FLUSH 10 ML SYR IV PRN; -CTR IV SCH; -FOSAPREPITANT DIMEGLUMINE 150 MG in NS (IVPB) CANCER CENTER ONLY 150 ML IV SCH; -GEMCITABINE HCL (GENERIC) 1,000 MG, GEMCITABINE HCL (GENERIC) 100 MG in NS (IVPB) CANCE... IV SCH; -GEMCITABINE HCL IV SCH; -IOHEXOL 300 MG/ML 50 ML (OMNIPAQUE 300) VIAL IV ONE; +IOHEXOL 350 MG/ML 100 ML (OMNIPAQUE 350) VIAL IV ONE; +NS 250 ML (IVPB) BAG IV ONE; -NS IV 500 ML (CANCER CENTER) IV SCH; -NS IV SCH; -PACLITAXEL PROTEIN IV SCH; -PALONOSETRON HCL 0.25 MG, DEXAMETHASONE PF INJ (CANCER C 10 MG in D5W 50 ML IV(CANCER C... IV PRN; +RECEIVED CONTRAST (Hold Metformin) IV SCH; -[UNRECOGNIZED DRUG - OTHER] IV SCH
--- NOTE | 2017-10-10 12:21 | Diagnostic Imaging Report ---
PROCEDURE: CT chest with contrast, CT abdomen and pelvis with and without contrast. TECHNIQUE: Pre and post intravenous contrast axial imaging of the abdomen and pelvis and post contrast axial imaging of the chest were performed. INDICATION: Pancreatic cancer, followup. COMPARISON: Comparison is made with prior CT from 08/15/2017. FINDINGS: CT chest: Left chest wall port has tip terminating in the right atrium. No axillary lymphadenopathy is detected. No definite mediastinal or hilar lymphadenopathy is identified. No pericardial or pleural fluid is identified. The lungs remain clear. No nodules or masses are seen. No infiltrates are detected. IMPRESSION: Stable unremarkable CT of the chest. There is no evidence of thoracic lymphadenopathy or pulmonary metastatic disease. CT abdomen and pelvis: Low-density lesions within the liver are again noted and stable and suggestive of cysts. Gallbladder is unremarkable. Pancreatic head and uncinate remain within normal limits. Atrophy of the pancreatic tail appears similar to prior exam. The area of ill-defined low density at the level of the pancreatic body and posterior to the pancreas and in the region of the celiac trunk remains stable and no new abnormality at this location is seen. Spleen is unremarkable. No adrenal mass is detected. Kidneys are unremarkable. Aorta is non-aneurysmal. No central retroperitoneal or mesenteric lymphadenopathy is seen. The visualized small and large bowel loops are of normal caliber. There is no ascites. Imaging through the pelvis does show some generalized bladder wall thickening, nonspecific. No pelvic lymphadenopathy is seen. IMPRESSION: 1. Stable appearance to the abdomen when compared with exam from 08/15/2017. Liver cysts are stable. The ill-defined low density involving the pancreatic body and central retroperitoneum appears stable. No new abnormality seen. 2. Generalized bladder wall thickening. While this may in part be owing to incomplete distention, possibility of cystitis cannot be entirely excluded. Dictated by: Dictated on workstation # [id number]
--- NOTE | 2017-10-10 17:13 | Diagnostic Imaging Report ---
INDICATION: Pancreatic carcinoma. TECHNIQUE: The patient was administered 24.9 mCi of technetium 99m MDP intravenously and whole-body imaging was performed after 3 hour delay. COMPARISON: No prior bone scans are available for comparison. FINDINGS: There is normal uptake of activity by the axial and appendicular skeleton. There is uptake by both kidneys with excretion into urinary bladder. No abnormal focus of tracer accumulation is seen to suggest occult fracture or osseous metastatic disease. IMPRESSION: No scintigraphic evidence of osseous metastatic disease. Dictated by: Dictated on workstation # [id number]
== END ==
LOC: CARD 11:09
PROVIDERS: ATTEND Internal Medicine Hematology & Oncology
DX: C25.1 Malignant neoplasm of body of pancreas (principal)
CPT/HCPCS: 71260; 74178; 78306

== ENCOUNTER 2017-11-18 08:33 | Outpatient (RCR) | payer BC ==
[2017-08-26 09:15] LABS: BASOPHILS % (AUTO) 1 % (0-10); EOSINOPHILS # (AUTO) 0.1 10^3/uL (0.0-0.3); EOSINOPHILS % (AUTO) 3 % (0-10); HEMATOCRIT 34 % (35-52); LYMPHOCYTES # (AUTO) 1.1 X 10^3 (1.0-4.0); LYMPHOCYTES % (AUTO) 57 % (12-44); MEAN CORPUSCULAR HEMOGLOBIN 29 PG (25-34); MEAN CORPUSCULAR HGB CONC 32 G/DL (32-36); MEAN CORPUSCULAR VOLUME 88 FL (80-99); MONOCYTES # (AUTO) 0.4 X 10^3 (0.0-1.0); MONOCYTES % (AUTO) 20 % (0-12); NEUTROPHILS # (AUTO) 0.4 X 10^3 (1.8-7.8); NEUTROPHILS % (AUTO) 20 % (42-75); PLATELET COUNT 253 10^3/uL (130-400); RED BLOOD COUNT 3.85 10^6/uL (4.35-5.85); RED CELL DISTRIBUTION WIDTH 15.8 % (10.0-14.5)
[2017-08-26 09:34] LABS: BUN/CREATININE RATIO 14; CALCIUM 8.9 MG/DL (8.5-10.1); CARBON DIOXIDE 27 MMOL/L (21-32); CHLORIDE 105 MMOL/L (98-107); CREATININE SERUM 0.69 MG/DL (0.60-1.30); GFR ESTIMATED > 60; GLUCOSE 87 MG/DL (70-105); SODIUM 138 MMOL/L (135-145)
[2017-09-02 09:01] LABS: BASOPHILS % (AUTO) 1 % (0-10); EOSINOPHILS # (AUTO) 0.1 10^3/uL (0.0-0.3); EOSINOPHILS % (AUTO) 2 % (0-10); HEMATOCRIT 33 % (35-52); HEMOGLOBIN 10.6 G/DL (11.5-16.0); LYMPHOCYTES # (AUTO) 1.3 X 10^3 (1.0-4.0); LYMPHOCYTES % (AUTO) 40 % (12-44); MEAN CORPUSCULAR HEMOGLOBIN 28 PG (25-34); MEAN CORPUSCULAR HGB CONC 32 G/DL (32-36); MEAN CORPUSCULAR VOLUME 88 FL (80-99); MEAN PLATELET VOLUME 10.4 FL (7.4-10.4); MONOCYTES # (AUTO) 0.5 X 10^3 (0.0-1.0); MONOCYTES % (AUTO) 15 % (0-12); NEUTROPHILS # (AUTO) 1.4 X 10^3 (1.8-7.8); NEUTROPHILS % (AUTO) 43 % (42-75); PLATELET COUNT 143 10^3/uL (130-400); RED BLOOD COUNT 3.76 10^6/uL (4.35-5.85); WHITE BLOOD COUNT 3.1 10^3/uL (4.3-11.0)
[2017-09-02 09:14] LABS: BUN/CREATININE RATIO 13; CALCIUM 8.7 MG/DL (8.5-10.1); CARBON DIOXIDE 25 MMOL/L (21-32); CHLORIDE 107 MMOL/L (98-107); CREATININE SERUM 0.71 MG/DL (0.60-1.30); GFR ESTIMATED > 60; GLUCOSE 80 MG/DL (70-105); POTASSIUM 3.6 MMOL/L (3.6-5.0); SODIUM 140 MMOL/L (135-145)
[2017-09-09 08:52] LABS: BASOPHILS % (AUTO) 0 % (0-10); EOSINOPHILS % (AUTO) 0 % (0-10); HEMATOCRIT 35 % (35-52); HEMOGLOBIN 11.2 G/DL (11.5-16.0); LYMPHOCYTES # (AUTO) 1.7 X 10^3 (1.0-4.0); LYMPHOCYTES % (AUTO) 66 % (12-44); MEAN CORPUSCULAR HEMOGLOBIN 28 PG (25-34); MEAN CORPUSCULAR HGB CONC 32 G/DL (32-36); MEAN CORPUSCULAR VOLUME 88 FL (80-99); MEAN PLATELET VOLUME 9.7 FL (7.4-10.4); MONOCYTES # (AUTO) 0.2 X 10^3 (0.0-1.0); MONOCYTES % (AUTO) 8 % (0-12); NEUTROPHILS # (AUTO) 0.7 X 10^3 (1.8-7.8); NEUTROPHILS % (AUTO) 25 % (42-75); PLATELET COUNT 210 10^3/uL (130-400); RED BLOOD COUNT 3.98 10^6/uL (4.35-5.85); RED CELL DISTRIBUTION WIDTH 16.2 % (10.0-14.5); WHITE BLOOD COUNT 2.6 10^3/uL (4.3-11.0)
[2017-09-09 09:06] LABS: BUN/CREATININE RATIO 8; CALCIUM 9.3 MG/DL (8.5-10.1); CARBON DIOXIDE 25 MMOL/L (21-32); CHLORIDE 104 MMOL/L (98-107); CREATININE SERUM 0.72 MG/DL (0.60-1.30); GFR ESTIMATED > 60; GLUCOSE 81 MG/DL (70-105); POTASSIUM 3.8 MMOL/L (3.6-5.0); SODIUM 138 MMOL/L (135-145)
[2017-09-16 08:55] LABS: BASOPHILS % (AUTO) 0 % (0-10); EOSINOPHILS # (AUTO) 0.1 10^3/uL (0.0-0.3); EOSINOPHILS % (AUTO) 2 % (0-10); HEMATOCRIT 30 % (35-52); HEMOGLOBIN 9.6 G/DL (11.5-16.0); LYMPHOCYTES # (AUTO) 1.2 X 10^3 (1.0-4.0); LYMPHOCYTES % (AUTO) 36 % (12-44); MEAN CORPUSCULAR HEMOGLOBIN 28 PG (25-34); MEAN CORPUSCULAR HGB CONC 32 G/DL (32-36); MEAN CORPUSCULAR VOLUME 88 FL (80-99); MEAN PLATELET VOLUME 9.5 FL (7.4-10.4); MONOCYTES # (AUTO) 0.6 X 10^3 (0.0-1.0); MONOCYTES % (AUTO) 19 % (0-12); NEUTROPHILS # (AUTO) 1.4 X 10^3 (1.8-7.8); NEUTROPHILS % (AUTO) 43 % (42-75); PLATELET COUNT 145 10^3/uL (130-400); RED BLOOD COUNT 3.42 10^6/uL (4.35-5.85); RED CELL DISTRIBUTION WIDTH 16.4 % (10.0-14.5); WHITE BLOOD COUNT 3.2 10^3/uL (4.3-11.0)
[2017-09-16 09:13] LABS: ALANINE AMINOTRANSFERASE 15 U/L (0-55); ALBUMIN 3.5 GM/DL (3.2-4.5); ALKALINE PHOSPHATASE 83 U/L (40-136); BILIRUBIN,TOTAL 0.4 MG/DL (0.1-1.0); BUN/CREATININE RATIO 11; CALCIUM 8.5 MG/DL (8.5-10.1); CARBON DIOXIDE 24 MMOL/L (21-32); CHLORIDE 108 MMOL/L (98-107); CREATININE SERUM 0.74 MG/DL (0.60-1.30); GFR ESTIMATED > 60; GLUCOSE 96 MG/DL (70-105); POTASSIUM 3.7 MMOL/L (3.6-5.0); SODIUM 140 MMOL/L (135-145); TOTAL PROTEIN 5.6 GM/DL (6.4-8.2)
[2017-09-23 09:02] LABS: BASOPHILS % (AUTO) 1 % (0-10); EOSINOPHILS % (AUTO) 1 % (0-10); HEMATOCRIT 35 % (35-52); HEMOGLOBIN 10.8 G/DL (11.5-16.0); LYMPHOCYTES # (AUTO) 1.2 X 10^3 (1.0-4.0); LYMPHOCYTES % (AUTO) 56 % (12-44); MEAN CORPUSCULAR HEMOGLOBIN 28 PG (25-34); MEAN CORPUSCULAR HGB CONC 31 G/DL (32-36); MEAN CORPUSCULAR VOLUME 89 FL (80-99); MEAN PLATELET VOLUME 9.6 FL (7.4-10.4); MONOCYTES # (AUTO) 0.2 X 10^3 (0.0-1.0); MONOCYTES % (AUTO) 11 % (0-12); NEUTROPHILS # (AUTO) 0.7 X 10^3 (1.8-7.8); NEUTROPHILS % (AUTO) 32 % (42-75); PLATELET COUNT 242 10^3/uL (130-400); RED BLOOD COUNT 3.87 10^6/uL (4.35-5.85); RED CELL DISTRIBUTION WIDTH 16.6 % (10.0-14.5); WHITE BLOOD COUNT 2.1 10^3/uL (4.3-11.0)
[2017-09-23 09:25] LABS: BUN/CREATININE RATIO 10; CALCIUM 8.7 MG/DL (8.5-10.1); CARBON DIOXIDE 27 MMOL/L (21-32); CHLORIDE 110 MMOL/L (98-107); CREATININE SERUM 0.71 MG/DL (0.60-1.30); GFR ESTIMATED > 60; GLUCOSE 89 MG/DL (70-105); POTASSIUM 3.6 MMOL/L (3.6-5.0); SODIUM 142 MMOL/L (135-145)
[2017-09-30 08:45] LABS: BASOPHILS % (AUTO) 0 % (0-10); EOSINOPHILS # (AUTO) 0.1 10^3/uL (0.0-0.3); EOSINOPHILS % (AUTO) 3 % (0-10); HEMATOCRIT 33 % (35-52); HEMOGLOBIN 10.5 G/DL (11.5-16.0); LYMPHOCYTES # (AUTO) 1.4 X 10^3 (1.0-4.0); LYMPHOCYTES % (AUTO) 40 % (12-44); MEAN CORPUSCULAR HEMOGLOBIN 28 PG (25-34); MEAN CORPUSCULAR HGB CONC 32 G/DL (32-36); MEAN CORPUSCULAR VOLUME 87 FL (80-99); MEAN PLATELET VOLUME 9.7 FL (7.4-10.4); MONOCYTES # (AUTO) 0.5 X 10^3 (0.0-1.0); MONOCYTES % (AUTO) 14 % (0-12); NEUTROPHILS # (AUTO) 1.5 X 10^3 (1.8-7.8); NEUTROPHILS % (AUTO) 43 % (42-75); PLATELET COUNT 147 10^3/uL (130-400); RED BLOOD COUNT 3.78 10^6/uL (4.35-5.85); RED CELL DISTRIBUTION WIDTH 16.3 % (10.0-14.5); WHITE BLOOD COUNT 3.5 10^3/uL (4.3-11.0)
[2017-09-30 09:04] LABS: BUN/CREATININE RATIO 9; CALCIUM 8.6 MG/DL (8.5-10.1); CARBON DIOXIDE 25 MMOL/L (21-32); CHLORIDE 109 MMOL/L (98-107); GFR ESTIMATED > 60; GLUCOSE 111 MG/DL (70-105); POTASSIUM 3.6 MMOL/L (3.6-5.0); SODIUM 142 MMOL/L (135-145)
[2017-10-07 08:44] LABS: BASOPHILS % (AUTO) 1 % (0-10); EOSINOPHILS % (AUTO) 1 % (0-10); HEMATOCRIT 35 % (35-52); HEMOGLOBIN 11.1 G/DL (11.5-16.0); LYMPHOCYTES # (AUTO) 1.5 X 10^3 (1.0-4.0); LYMPHOCYTES % (AUTO) 57 % (12-44); MEAN CORPUSCULAR HEMOGLOBIN 27 PG (25-34); MEAN CORPUSCULAR HGB CONC 31 G/DL (32-36); MEAN CORPUSCULAR VOLUME 87 FL (80-99); MEAN PLATELET VOLUME 9.1 FL (7.4-10.4); MONOCYTES # (AUTO) 0.2 X 10^3 (0.0-1.0); MONOCYTES % (AUTO) 9 % (0-12); NEUTROPHILS # (AUTO) 0.9 X 10^3 (1.8-7.8); NEUTROPHILS % (AUTO) 32 % (42-75); PLATELET COUNT 215 10^3/uL (130-400); RED BLOOD COUNT 4.04 10^6/uL (4.35-5.85); RED CELL DISTRIBUTION WIDTH 16.4 % (10.0-14.5); WHITE BLOOD COUNT 2.7 10^3/uL (4.3-11.0)
[2017-10-07 08:59] LABS: BUN/CREATININE RATIO 13; CALCIUM 9.1 MG/DL (8.5-10.1); CARBON DIOXIDE 23 MMOL/L (21-32); CHLORIDE 105 MMOL/L (98-107); CREATININE SERUM 0.71 MG/DL (0.60-1.30); GFR ESTIMATED > 60; GLUCOSE 103 MG/DL (70-105); POTASSIUM 3.7 MMOL/L (3.6-5.0); SODIUM 139 MMOL/L (135-145)
[2017-10-15 10:22] LABS: BASOPHILS % (AUTO) 1 % (0-10); EOSINOPHILS # (AUTO) 0.1 10^3/uL (0.0-0.3); EOSINOPHILS % (AUTO) 2 % (0-10); HEMATOCRIT 33 % (35-52); HEMOGLOBIN 10.6 G/DL (11.5-16.0); LYMPHOCYTES # (AUTO) 1.1 X 10^3 (1.0-4.0); LYMPHOCYTES % (AUTO) 32 % (12-44); MEAN CORPUSCULAR HEMOGLOBIN 28 PG (25-34); MEAN CORPUSCULAR HGB CONC 32 G/DL (32-36); MEAN CORPUSCULAR VOLUME 87 FL (80-99); MEAN PLATELET VOLUME 9.9 FL (7.4-10.4); MONOCYTES # (AUTO) 0.6 X 10^3 (0.0-1.0); MONOCYTES % (AUTO) 16 % (0-12); NEUTROPHILS # (AUTO) 1.7 X 10^3 (1.8-7.8); NEUTROPHILS % (AUTO) 50 % (42-75); PLATELET COUNT 168 10^3/uL (130-400); RED BLOOD COUNT 3.81 10^6/uL (4.35-5.85); RED CELL DISTRIBUTION WIDTH 16.9 % (10.0-14.5); WHITE BLOOD COUNT 3.5 10^3/uL (4.3-11.0)
[2017-10-15 10:51] LABS: ALANINE AMINOTRANSFERASE 14 U/L (0-55); ALBUMIN 3.9 GM/DL (3.2-4.5); ALKALINE PHOSPHATASE 94 U/L (40-136); BILIRUBIN,TOTAL 0.4 MG/DL (0.1-1.0); BUN/CREATININE RATIO 9; CALCIUM 8.8 MG/DL (8.5-10.1); CARBON DIOXIDE 26 MMOL/L (21-32); CHLORIDE 111 MMOL/L (98-107); GFR ESTIMATED > 60; GLUCOSE 87 MG/DL (70-105); POTASSIUM 3.8 MMOL/L (3.6-5.0); SODIUM 144 MMOL/L (135-145); TOTAL PROTEIN 6.2 GM/DL (6.4-8.2)
[2017-10-21 09:21] LABS: BASOPHILS % (AUTO) 0 % (0-10); EOSINOPHILS % (AUTO) 1 % (0-10); HEMATOCRIT 35 % (35-52); LYMPHOCYTES # (AUTO) 1.3 X 10^3 (1.0-4.0); LYMPHOCYTES % (AUTO) 46 % (12-44); MEAN CORPUSCULAR HEMOGLOBIN 28 PG (25-34); MEAN CORPUSCULAR HGB CONC 32 G/DL (32-36); MEAN CORPUSCULAR VOLUME 87 FL (80-99); MEAN PLATELET VOLUME 9.8 FL (7.4-10.4); MONOCYTES # (AUTO) 0.1 X 10^3 (0.0-1.0); MONOCYTES % (AUTO) 3 % (0-12); NEUTROPHILS # (AUTO) 1.4 X 10^3 (1.8-7.8); NEUTROPHILS % (AUTO) 49 % (42-75); PLATELET COUNT 259 10^3/uL (130-400); RED BLOOD COUNT 3.98 10^6/uL (4.35-5.85); RED CELL DISTRIBUTION WIDTH 16.4 % (10.0-14.5); WHITE BLOOD COUNT 2.9 10^3/uL (4.3-11.0)
[2017-10-21 09:52] LABS: BUN/CREATININE RATIO 11; CALCIUM 8.8 MG/DL (8.5-10.1); CARBON DIOXIDE 21 MMOL/L (21-32); CHLORIDE 109 MMOL/L (98-107); CREATININE SERUM 0.73 MG/DL (0.60-1.30); GFR ESTIMATED > 60; GLUCOSE 112 MG/DL (70-105); POTASSIUM 3.7 MMOL/L (3.6-5.0); SODIUM 140 MMOL/L (135-145)
[2017-10-28 09:09] LABS: BASOPHILS % (AUTO) 1 % (0-10); EOSINOPHILS # (AUTO) 0.1 10^3/uL (0.0-0.3); EOSINOPHILS % (AUTO) 3 % (0-10); HEMATOCRIT 32 % (35-52); HEMOGLOBIN 10.5 G/DL (11.5-16.0); LYMPHOCYTES # (AUTO) 1.4 X 10^3 (1.0-4.0); LYMPHOCYTES % (AUTO) 44 % (12-44); MEAN CORPUSCULAR HEMOGLOBIN 29 PG (25-34); MEAN CORPUSCULAR HGB CONC 33 G/DL (32-36); MEAN CORPUSCULAR VOLUME 88 FL (80-99); MEAN PLATELET VOLUME 9.7 FL (7.4-10.4); MONOCYTES # (AUTO) 0.4 X 10^3 (0.0-1.0); MONOCYTES % (AUTO) 13 % (0-12); NEUTROPHILS # (AUTO) 1.3 X 10^3 (1.8-7.8); NEUTROPHILS % (AUTO) 39 % (42-75); PLATELET COUNT 124 10^3/uL (130-400); RED BLOOD COUNT 3.67 10^6/uL (4.35-5.85); RED CELL DISTRIBUTION WIDTH 16.4 % (10.0-14.5); WHITE BLOOD COUNT 3.3 10^3/uL (4.3-11.0)
[2017-10-28 09:28] LABS: BUN/CREATININE RATIO 10; CALCIUM 8.7 MG/DL (8.5-10.1); CARBON DIOXIDE 24 MMOL/L (21-32); CHLORIDE 109 MMOL/L (98-107); CREATININE SERUM 0.73 MG/DL (0.60-1.30); GFR ESTIMATED > 60; GLUCOSE 99 MG/DL (70-105); POTASSIUM 3.7 MMOL/L (3.6-5.0); SODIUM 141 MMOL/L (135-145)
[2017-11-04 08:47] LABS: BASOPHILS % (AUTO) 1 % (0-10); EOSINOPHILS % (AUTO) 1 % (0-10); HEMATOCRIT 34 % (35-52); HEMOGLOBIN 10.7 G/DL (11.5-16.0); LYMPHOCYTES # (AUTO) 1.5 X 10^3 (1.0-4.0); LYMPHOCYTES % (AUTO) 68 % (12-44); MEAN CORPUSCULAR HEMOGLOBIN 28 PG (25-34); MEAN CORPUSCULAR HGB CONC 32 G/DL (32-36); MEAN CORPUSCULAR VOLUME 88 FL (80-99); MEAN PLATELET VOLUME 9.6 FL (7.4-10.4); MONOCYTES # (AUTO) 0.2 X 10^3 (0.0-1.0); MONOCYTES % (AUTO) 8 % (0-12); NEUTROPHILS # (AUTO) 0.5 X 10^3 (1.8-7.8); NEUTROPHILS % (AUTO) 22 % (42-75); PLATELET COUNT 190 10^3/uL (130-400); RED BLOOD COUNT 3.83 10^6/uL (4.35-5.85); RED CELL DISTRIBUTION WIDTH 16.3 % (10.0-14.5); WHITE BLOOD COUNT 2.2 10^3/uL (4.3-11.0)
[2017-11-04 09:32] LABS: BUN/CREATININE RATIO 13; CARBON DIOXIDE 24 MMOL/L (21-32); CHLORIDE 109 MMOL/L (98-107); CREATININE SERUM 0.76 MG/DL (0.60-1.30); GFR ESTIMATED > 60; GLUCOSE 85 MG/DL (70-105); POTASSIUM 4.1 MMOL/L (3.6-5.0); SODIUM 141 MMOL/L (135-145)
[2017-11-11 09:10] LABS: BASOPHILS % (AUTO) 1 % (0-10); EOSINOPHILS # (AUTO) 0.1 10^3/uL (0.0-0.3); EOSINOPHILS % (AUTO) 3 % (0-10); HEMATOCRIT 32 % (35-52); HEMOGLOBIN 10.5 G/DL (11.5-16.0); LYMPHOCYTES # (AUTO) 1.1 X 10^3 (1.0-4.0); LYMPHOCYTES % (AUTO) 34 % (12-44); MEAN CORPUSCULAR HEMOGLOBIN 29 PG (25-34); MEAN CORPUSCULAR HGB CONC 33 G/DL (32-36); MEAN CORPUSCULAR VOLUME 87 FL (80-99); MEAN PLATELET VOLUME 9.7 FL (7.4-10.4); MONOCYTES # (AUTO) 0.4 X 10^3 (0.0-1.0); MONOCYTES % (AUTO) 12 % (0-12); NEUTROPHILS # (AUTO) 1.5 X 10^3 (1.8-7.8); NEUTROPHILS % (AUTO) 50 % (42-75); PLATELET COUNT 135 10^3/uL (130-400); RED BLOOD COUNT 3.64 10^6/uL (4.35-5.85); RED CELL DISTRIBUTION WIDTH 16.3 % (10.0-14.5); WHITE BLOOD COUNT 3.1 10^3/uL (4.3-11.0)
[2017-11-11 09:35] LABS: ALANINE AMINOTRANSFERASE 13 U/L (0-55); ALBUMIN 3.7 GM/DL (3.2-4.5); ALKALINE PHOSPHATASE 92 U/L (40-136); BILIRUBIN,TOTAL 0.4 MG/DL (0.1-1.0); BUN/CREATININE RATIO 11; CALCIUM 8.8 MG/DL (8.5-10.1); CARBON DIOXIDE 24 MMOL/L (21-32); CHLORIDE 111 MMOL/L (98-107); CREATININE SERUM 0.72 MG/DL (0.60-1.30); GFR ESTIMATED > 60; GLUCOSE 136 MG/DL (70-105); POTASSIUM 3.6 MMOL/L (3.6-5.0); SODIUM 143 MMOL/L (135-145)
[~2017-11-18] VITALS: Ht 150.4 cm; Wt 51.7 kg
[~2017-11-18 08:33] MED LIST changes: -BARIUM SUSPENSION 2.1% (VANILLA SILQ) 450 ML PO ONE; -CATHETER FLUSH 10 ML SYR IV PRN; +DEXAMETHASONE IV SCH; +GEMCITABINE HCL IV SCH; -IOHEXOL 350 MG/ML 100 ML (OMNIPAQUE 350) VIAL IV ONE; -NS 250 ML (IVPB) BAG IV ONE; +NS IV 500 ML (CANCER CENTER) IV SCH; +NS IV SCH; +ONDANSETRON 8 MG, DEXAMETHASONE 4 MG/NS 50 ML IVPB (Cancer Ctr) IV SCH; +PALONOSETRON HCL 0.25 MG, DEXAMETHASONE PF INJ (CANCER C 10 MG in D5W 50 ML IV(CANCER C... IV PRN; +PALONOSETRON HCL IV SCH; -RECEIVED CONTRAST (Hold Metformin) IV SCH; +[UNRECOGNIZED DRUG - OTHER] IV SCH
[2017-11-18 08:47] LABS: BASOPHILS % (AUTO) 1 % (0-10); EOSINOPHILS % (AUTO) 1 % (0-10); HEMATOCRIT 34 % (35-52); HEMOGLOBIN 11.1 G/DL (11.5-16.0); LYMPHOCYTES # (AUTO) 1.3 X 10^3 (1.0-4.0); LYMPHOCYTES % (AUTO) 66 % (12-44); MEAN CORPUSCULAR HEMOGLOBIN 28 PG (25-34); MEAN CORPUSCULAR HGB CONC 32 G/DL (32-36); MEAN CORPUSCULAR VOLUME 87 FL (80-99); MEAN PLATELET VOLUME 9.6 FL (7.4-10.4); MONOCYTES # (AUTO) 0.2 X 10^3 (0.0-1.0); MONOCYTES % (AUTO) 10 % (0-12); NEUTROPHILS # (AUTO) 0.5 X 10^3 (1.8-7.8); NEUTROPHILS % (AUTO) 23 % (42-75); PLATELET COUNT 233 10^3/uL (130-400); RED BLOOD COUNT 3.97 10^6/uL (4.35-5.85); RED CELL DISTRIBUTION WIDTH 16.4 % (10.0-14.5)
[2017-11-18 09:05] LABS: BUN/CREATININE RATIO 8; CALCIUM 9.2 MG/DL (8.5-10.1); CARBON DIOXIDE 23 MMOL/L (21-32); CHLORIDE 106 MMOL/L (98-107); CREATININE SERUM 0.78 MG/DL (0.60-1.30); GFR ESTIMATED > 60; GLUCOSE 125 MG/DL (70-105); POTASSIUM 3.5 MMOL/L (3.6-5.0); SODIUM 140 MMOL/L (135-145)
== END 2017-11-24 | disposition home or self-care (01) ==
LOC: ONC 08:33
PROVIDERS: ATTEND Internal Medicine Hematology & Oncology
DX: Z51.11 Encounter for antineoplastic chemotherapy (principal); C25.1 Malignant neoplasm of body of pancreas; E03.9 Hypothyroidism, unspecified; F32.9 Major depressive disorder, single episode, unspecified; Z79.899 Other long term (current) drug therapy
CPT/HCPCS: 36415; 36591; 80048; 80053; 84443; 85025; 86301; 96375; 96413

== ENCOUNTER → 2018-01-01 | Outpatient (CLI) | payer BC ==
[~2018-01-01] MED LIST changes: +CATHETER FLUSH 10 ML SYR IV PRN; -DEXAMETHASONE IV SCH; -GEMCITABINE HCL IV SCH; -NS IV 500 ML (CANCER CENTER) IV SCH; -NS IV SCH; -ONDANSETRON 8 MG, DEXAMETHASONE 4 MG/NS 50 ML IVPB (Cancer Ctr) IV SCH; -PALONOSETRON HCL 0.25 MG, DEXAMETHASONE PF INJ (CANCER C 10 MG in D5W 50 ML IV(CANCER C... IV PRN; -PALONOSETRON HCL IV SCH; -[UNRECOGNIZED DRUG - OTHER] IV SCH
--- NOTE | 2018-01-01 13:01 | Diagnostic Imaging Report ---
PROCEDURE: CT chest with contrast, CT abdomen with and without contrast. TECHNIQUE: Precontrast acquisitions were acquired through the abdomen. Multiple contiguous axial images were obtained through the chest and abdomen after administration of intravenous contrast. INDICATION: Pancreatic carcinoma. Study is performed for followup. Correlation is made with prior CT from 10/10/2017. CT CHEST: Left chest wall port is again noted with the tip extending into the SVC. No axillary lymphadenopathy is identified. No definite mediastinal or hilar lymphadenopathy is detected. No pericardial or pleural fluid is identified. The lungs remain clear. No infiltrates are seen. No parenchymal mass or nodule is identified. The central airways are patent. IMPRESSION: Continued stable CT of the chest when compared exam from 10/10/2017. No thoracic lymphadenopathy or evidence of pulmonary metastatic disease is identified. CT ABDOMEN: Bilobed low-density lesion in the right lobe of liver near the dome appears stable and most consistent with a cyst. Cyst in the caudate is also present. There is an 11 mm region of hyperenhancement in the right lobe of the liver, not well seen on prior imaging, however, this could be slight differences in bolus timing. The lesion is visualized better during arterial phase imaging but is isodense to the liver during portal venous phase imaging. Prior exams are all done during portal venous phase. A prior study from November 2016 did show some images during arterial phase and no hyperdensity is seen. No other new liver lesion is detected. The pancreatic head and uncinate remain within normal limits. There continues to be some atrophy of the pancreatic body and tail. The area of ill-defined low density related to the pancreatic body at the level of the celiac and posterior to the pancreas is again seen. This does appear to be slightly more prominent than prior exam. This is difficult to measure but is approximately 2.9 x 1.4 cm. This compares with 2.3 x 1.1 cm. The spleen is unremarkable. No adrenal mass is seen. Kidneys are unremarkable. Aorta is nonaneurysmal. No central, retroperitoneal lymphadenopathy is seen. The visualized bowel loops are normal caliber. There is no ascites. IMPRESSION: 1. There appears to be a mild increase in size of the ill-defined low-density mass related to the pancreatic body when compared with CT from 10/10/2017. In addition, there is a new 11 mm region of hyperenhancement in the right lobe of the liver. Hepatic metastatic lesion cannot be entirely excluded. Continued followup is recommended. Dictated by: Dictated on workstation # [id number]
--- NOTE | 2018-01-01 15:51 | Diagnostic Imaging Report ---
INDICATION: Pancreatic carcinoma. TECHNIQUE: The patient was administered 26.7 mCi technetium 99m MDP intravenously and whole-body imaging was performed after a three-hour delay. COMPARISON is made with prior whole body bone scan from 10/10/2017. FINDINGS: There is normal uptake of activity by the axial and appendicular skeleton. There is uptake by both kidneys with excretion to the urinary bladder. Small focus of uptake in the lower lumbar spine on the left is seen and similar to prior study, likely degenerative. No findings to suggest osseous metastatic disease are identified. IMPRESSION: Stable whole-body bone scan with no scintigraphic evidence of osseous metastatic disease. Dictated by: Dictated on workstation # [id number]
== END ==
LOC: CARD 10:48
PROVIDERS: ATTEND Internal Medicine Hematology & Oncology
DX: C25.1 Malignant neoplasm of body of pancreas (principal)
CPT/HCPCS: 71260; 74170; 78306

== ENCOUNTER 2018-02-13 11:01 | Outpatient (RCR) | payer BC ==
[2017-11-25 08:49] LABS: BASOPHILS % (AUTO) 1 % (0-10); EOSINOPHILS # (AUTO) 0.1 10^3/uL (0.0-0.3); EOSINOPHILS % (AUTO) 4 % (0-10); HEMATOCRIT 31 % (35-52); HEMOGLOBIN 10.1 G/DL (11.5-16.0); LYMPHOCYTES # (AUTO) 1.2 X 10^3 (1.0-4.0); LYMPHOCYTES % (AUTO) 35 % (12-44); MEAN CORPUSCULAR HEMOGLOBIN 28 PG (25-34); MEAN CORPUSCULAR HGB CONC 32 G/DL (32-36); MEAN CORPUSCULAR VOLUME 88 FL (80-99); MEAN PLATELET VOLUME 9.7 FL (7.4-10.4); MONOCYTES # (AUTO) 0.4 X 10^3 (0.0-1.0); MONOCYTES % (AUTO) 12 % (0-12); NEUTROPHILS # (AUTO) 1.6 X 10^3 (1.8-7.8); NEUTROPHILS % (AUTO) 47 % (42-75); PLATELET COUNT 139 10^3/uL (130-400); RED BLOOD COUNT 3.59 10^6/uL (4.35-5.85); RED CELL DISTRIBUTION WIDTH 16.6 % (10.0-14.5); WHITE BLOOD COUNT 3.4 10^3/uL (4.3-11.0)
[2017-11-25 09:04] LABS: BUN/CREATININE RATIO 10; CALCIUM 8.7 MG/DL (8.5-10.1); CARBON DIOXIDE 27 MMOL/L (21-32); CHLORIDE 110 MMOL/L (98-107); CREATININE SERUM 0.79 MG/DL (0.60-1.30); GFR ESTIMATED > 60; GLUCOSE 117 MG/DL (70-105); POTASSIUM 3.7 MMOL/L (3.6-5.0); SODIUM 142 MMOL/L (135-145)
[2017-12-02 08:52] LABS: BASOPHILS % (AUTO) 1 % (0-10); EOSINOPHILS % (AUTO) 1 % (0-10); HEMATOCRIT 35 % (35-52); LYMPHOCYTES # (AUTO) 1.2 X 10^3 (1.0-4.0); LYMPHOCYTES % (AUTO) 66 % (12-44); MEAN CORPUSCULAR HEMOGLOBIN 28 PG (25-34); MEAN CORPUSCULAR HGB CONC 32 G/DL (32-36); MEAN CORPUSCULAR VOLUME 87 FL (80-99); MEAN PLATELET VOLUME 9.6 FL (7.4-10.4); MONOCYTES # (AUTO) 0.2 X 10^3 (0.0-1.0); MONOCYTES % (AUTO) 9 % (0-12); NEUTROPHILS # (AUTO) 0.5 X 10^3 (1.8-7.8); NEUTROPHILS % (AUTO) 24 % (42-75); PLATELET COUNT 193 10^3/uL (130-400); RED CELL DISTRIBUTION WIDTH 16.5 % (10.0-14.5); WHITE BLOOD COUNT 1.9 10^3/uL (4.3-11.0)
[2017-12-02 09:07] LABS: BUN/CREATININE RATIO 12; CALCIUM 9.1 MG/DL (8.5-10.1); CARBON DIOXIDE 23 MMOL/L (21-32); CHLORIDE 110 MMOL/L (98-107); CREATININE SERUM 0.74 MG/DL (0.60-1.30); GFR ESTIMATED > 60; GLUCOSE 114 MG/DL (70-105); POTASSIUM 3.9 MMOL/L (3.6-5.0); SODIUM 141 MMOL/L (135-145)
[2017-12-09 09:25] LABS: BASOPHILS % (AUTO) 1 % (0-10); EOSINOPHILS # (AUTO) 0.1 10^3/uL (0.0-0.3); EOSINOPHILS % (AUTO) 3 % (0-10); HEMATOCRIT 35 % (35-52); HEMOGLOBIN 11.4 G/DL (11.5-16.0); LYMPHOCYTES # (AUTO) 1.3 X 10^3 (1.0-4.0); LYMPHOCYTES % (AUTO) 36 % (12-44); MEAN CORPUSCULAR HEMOGLOBIN 28 PG (25-34); MEAN CORPUSCULAR HGB CONC 33 G/DL (32-36); MEAN CORPUSCULAR VOLUME 86 FL (80-99); MEAN PLATELET VOLUME 9.9 FL (7.4-10.4); MONOCYTES # (AUTO) 0.5 X 10^3 (0.0-1.0); MONOCYTES % (AUTO) 14 % (0-12); NEUTROPHILS # (AUTO) 1.6 X 10^3 (1.8-7.8); NEUTROPHILS % (AUTO) 46 % (42-75); PLATELET COUNT 156 10^3/uL (130-400); RED BLOOD COUNT 4.04 10^6/uL (4.35-5.85); RED CELL DISTRIBUTION WIDTH 16.7 % (10.0-14.5); WHITE BLOOD COUNT 3.4 10^3/uL (4.3-11.0)
[2017-12-09 09:43] LABS: ALANINE AMINOTRANSFERASE 13 U/L (0-55); ALBUMIN 4.1 GM/DL (3.2-4.5); ALKALINE PHOSPHATASE 102 U/L (40-136); BILIRUBIN,TOTAL 0.6 MG/DL (0.1-1.0); BUN/CREATININE RATIO 12; CALCIUM 9.2 MG/DL (8.5-10.1); CARBON DIOXIDE 26 MMOL/L (21-32); CHLORIDE 107 MMOL/L (98-107); CREATININE SERUM 0.76 MG/DL (0.60-1.30); GFR ESTIMATED > 60; GLUCOSE 85 MG/DL (70-105); POTASSIUM 3.9 MMOL/L (3.6-5.0); SODIUM 141 MMOL/L (135-145); TOTAL PROTEIN 7.2 GM/DL (6.4-8.2)
[2017-12-16 08:49] LABS: BASOPHILS % (AUTO) 1 % (0-10); EOSINOPHILS % (AUTO) 1 % (0-10); HEMATOCRIT 36 % (35-52); HEMOGLOBIN 11.8 G/DL (11.5-16.0); LYMPHOCYTES # (AUTO) 1.4 X 10^3 (1.0-4.0); LYMPHOCYTES % (AUTO) 67 % (12-44); MEAN CORPUSCULAR HEMOGLOBIN 28 PG (25-34); MEAN CORPUSCULAR HGB CONC 33 G/DL (32-36); MEAN CORPUSCULAR VOLUME 86 FL (80-99); MEAN PLATELET VOLUME 9.4 FL (7.4-10.4); MONOCYTES # (AUTO) 0.2 X 10^3 (0.0-1.0); MONOCYTES % (AUTO) 10 % (0-12); NEUTROPHILS # (AUTO) 0.5 X 10^3 (1.8-7.8); NEUTROPHILS % (AUTO) 22 % (42-75); PLATELET COUNT 235 10^3/uL (130-400); WHITE BLOOD COUNT 2.1 10^3/uL (4.3-11.0)
[2017-12-16 09:06] LABS: BUN/CREATININE RATIO 10; CALCIUM 9.3 MG/DL (8.5-10.1); CARBON DIOXIDE 23 MMOL/L (21-32); CHLORIDE 105 MMOL/L (98-107); CREATININE SERUM 0.73 MG/DL (0.60-1.30); GFR ESTIMATED > 60; GLUCOSE 87 MG/DL (70-105); POTASSIUM 3.9 MMOL/L (3.6-5.0); SODIUM 138 MMOL/L (135-145)
[2017-12-23 08:53] LABS: BASOPHILS % (AUTO) 1 % (0-10); EOSINOPHILS # (AUTO) 0.1 10^3/uL (0.0-0.3); EOSINOPHILS % (AUTO) 2 % (0-10); HEMATOCRIT 33 % (35-52); HEMOGLOBIN 10.3 G/DL (11.5-16.0); LYMPHOCYTES # (AUTO) 1.4 X 10^3 (1.0-4.0); LYMPHOCYTES % (AUTO) 45 % (12-44); MEAN CORPUSCULAR HEMOGLOBIN 27 PG (25-34); MEAN CORPUSCULAR HGB CONC 31 G/DL (32-36); MEAN CORPUSCULAR VOLUME 87 FL (80-99); MEAN PLATELET VOLUME 9.6 FL (7.4-10.4); MONOCYTES # (AUTO) 0.4 X 10^3 (0.0-1.0); MONOCYTES % (AUTO) 11 % (0-12); NEUTROPHILS # (AUTO) 1.4 X 10^3 (1.8-7.8); NEUTROPHILS % (AUTO) 42 % (42-75); PLATELET COUNT 140 10^3/uL (130-400); RED BLOOD COUNT 3.79 10^6/uL (4.35-5.85); RED CELL DISTRIBUTION WIDTH 17.4 % (10.0-14.5); WHITE BLOOD COUNT 3.2 10^3/uL (4.3-11.0)
[2017-12-23 09:23] LABS: BUN/CREATININE RATIO 8; CALCIUM 8.6 MG/DL (8.5-10.1); CARBON DIOXIDE 25 MMOL/L (21-32); CHLORIDE 109 MMOL/L (98-107); CREATININE SERUM 0.75 MG/DL (0.60-1.30); GFR ESTIMATED > 60; GLUCOSE 137 MG/DL (70-105); POTASSIUM 3.5 MMOL/L (3.6-5.0); SODIUM 141 MMOL/L (135-145)
[2017-12-30 09:06] LABS: HEMATOCRIT 36 % (35-52); HEMOGLOBIN 11.3 G/DL (11.5-16.0); MEAN CORPUSCULAR HEMOGLOBIN 28 PG (25-34); MEAN CORPUSCULAR HGB CONC 32 G/DL (32-36); MEAN CORPUSCULAR VOLUME 88 FL (80-99); MEAN PLATELET VOLUME 9.8 FL (7.4-10.4); PLATELET COUNT 160 10^3/uL (130-400); RED BLOOD COUNT 4.07 10^6/uL (4.35-5.85); RED CELL DISTRIBUTION WIDTH 16.9 % (10.0-14.5); WHITE BLOOD COUNT 1.7 10^3/uL (4.3-11.0)
[2017-12-30 09:11] LABS: BASOPHILS % (AUTO) 1 % (0-10); EOSINOPHILS % (AUTO) 1 % (0-10); LYMPHOCYTES # (AUTO) 1.1 X 10^3 (1.0-4.0); LYMPHOCYTES % (AUTO) 62 % (12-44); MONOCYTES # (AUTO) 0.1 X 10^3 (0.0-1.0); MONOCYTES % (AUTO) 8 % (0-12); NEUTROPHILS # (AUTO) 0.5 X 10^3 (1.8-7.8); NEUTROPHILS % (AUTO) 28 % (42-75)
[2017-12-30 09:32] LABS: BUN/CREATININE RATIO 10; CALCIUM 9.2 MG/DL (8.5-10.1); CARBON DIOXIDE 24 MMOL/L (21-32); CHLORIDE 109 MMOL/L (98-107); GFR ESTIMATED > 60; GLUCOSE 125 MG/DL (70-105); POTASSIUM 3.9 MMOL/L (3.6-5.0); SODIUM 141 MMOL/L (135-145)
[2018-01-06 08:43] LABS: BASOPHILS % (AUTO) 1 % (0-10); EOSINOPHILS # (AUTO) 0.1 10^3/uL (0.0-0.3); EOSINOPHILS % (AUTO) 2 % (0-10); HEMATOCRIT 32 % (35-52); HEMOGLOBIN 10.2 G/DL (11.5-16.0); LYMPHOCYTES # (AUTO) 1.3 X 10^3 (1.0-4.0); LYMPHOCYTES % (AUTO) 43 % (12-44); MEAN CORPUSCULAR HEMOGLOBIN 27 PG (25-34); MEAN CORPUSCULAR HGB CONC 32 G/DL (32-36); MEAN CORPUSCULAR VOLUME 86 FL (80-99); MONOCYTES # (AUTO) 0.5 X 10^3 (0.0-1.0); MONOCYTES % (AUTO) 16 % (0-12); NEUTROPHILS # (AUTO) 1.1 X 10^3 (1.8-7.8); NEUTROPHILS % (AUTO) 38 % (42-75); PLATELET COUNT 150 10^3/uL (130-400); RED BLOOD COUNT 3.72 10^6/uL (4.35-5.85); RED CELL DISTRIBUTION WIDTH 17.3 % (10.0-14.5); WHITE BLOOD COUNT 2.9 10^3/uL (4.3-11.0)
[2018-01-06 09:00] LABS: ALANINE AMINOTRANSFERASE 13 U/L (0-55); ALBUMIN 3.9 GM/DL (3.2-4.5); ALKALINE PHOSPHATASE 88 U/L (40-136); BILIRUBIN,TOTAL 0.4 MG/DL (0.1-1.0); BUN/CREATININE RATIO 15; CALCIUM 8.7 MG/DL (8.5-10.1); CARBON DIOXIDE 25 MMOL/L (21-32); CHLORIDE 109 MMOL/L (98-107); CREATININE SERUM 0.75 MG/DL (0.60-1.30); GFR ESTIMATED > 60; GLUCOSE 96 MG/DL (70-105); POTASSIUM 3.7 MMOL/L (3.6-5.0); SODIUM 140 MMOL/L (135-145)
[2018-01-12 09:10] LABS: BASOPHILS % (AUTO) 1 % (0-10); EOSINOPHILS # (AUTO) 0.1 10^3/uL (0.0-0.3); EOSINOPHILS % (AUTO) 2 % (0-10); HEMATOCRIT 32 % (35-52); LYMPHOCYTES # (AUTO) 1.2 X 10^3 (1.0-4.0); LYMPHOCYTES % (AUTO) 43 % (12-44); MEAN CORPUSCULAR HEMOGLOBIN 28 PG (25-34); MEAN CORPUSCULAR HGB CONC 32 G/DL (32-36); MEAN CORPUSCULAR VOLUME 87 FL (80-99); MEAN PLATELET VOLUME 9.1 FL (7.4-10.4); MONOCYTES # (AUTO) 0.5 X 10^3 (0.0-1.0); MONOCYTES % (AUTO) 18 % (0-12); NEUTROPHILS # (AUTO) 1.1 X 10^3 (1.8-7.8); NEUTROPHILS % (AUTO) 37 % (42-75); PLATELET COUNT 232 10^3/uL (130-400); RED BLOOD COUNT 3.63 10^6/uL (4.35-5.85); RED CELL DISTRIBUTION WIDTH 17.4 % (10.0-14.5); WHITE BLOOD COUNT 2.9 10^3/uL (4.3-11.0)
[2018-01-12 09:29] LABS: ALANINE AMINOTRANSFERASE 10 U/L (0-55); ALBUMIN 3.8 GM/DL (3.2-4.5); ALKALINE PHOSPHATASE 87 U/L (40-136); BILIRUBIN,TOTAL 0.4 MG/DL (0.1-1.0); BUN/CREATININE RATIO 10; CALCIUM 8.7 MG/DL (8.5-10.1); CARBON DIOXIDE 26 MMOL/L (21-32); CHLORIDE 109 MMOL/L (98-107); CREATININE SERUM 0.72 MG/DL (0.60-1.30); GFR ESTIMATED > 60; GLUCOSE 105 MG/DL (70-105); POTASSIUM 3.9 MMOL/L (3.6-5.0); SODIUM 140 MMOL/L (135-145)
[2018-01-20 08:59] LABS: BASOPHILS % (AUTO) 0 % (0-10); EOSINOPHILS % (AUTO) 1 % (0-10); HEMATOCRIT 33 % (35-52); HEMOGLOBIN 10.3 G/DL (11.5-16.0); LYMPHOCYTES # (AUTO) 1.3 X 10^3 (1.0-4.0); LYMPHOCYTES % (AUTO) 43 % (12-44); MEAN CORPUSCULAR HEMOGLOBIN 27 PG (25-34); MEAN CORPUSCULAR HGB CONC 31 G/DL (32-36); MEAN CORPUSCULAR VOLUME 88 FL (80-99); MEAN PLATELET VOLUME 10.7 FL (7.4-10.4); MONOCYTES # (AUTO) 0.6 X 10^3 (0.0-1.0); MONOCYTES % (AUTO) 18 % (0-12); NEUTROPHILS # (AUTO) 1.2 X 10^3 (1.8-7.8); NEUTROPHILS % (AUTO) 38 % (42-75); PLATELET COUNT 112 10^3/uL (130-400); RED BLOOD COUNT 3.76 10^6/uL (4.35-5.85); RED CELL DISTRIBUTION WIDTH 18.1 % (10.0-14.5); WHITE BLOOD COUNT 3.1 10^3/uL (4.3-11.0)
[2018-01-20 09:12] LABS: BUN/CREATININE RATIO 11; CALCIUM 8.9 MG/DL (8.5-10.1); CARBON DIOXIDE 24 MMOL/L (21-32); CHLORIDE 107 MMOL/L (98-107); CREATININE SERUM 0.74 MG/DL (0.60-1.30); GFR ESTIMATED > 60; GLUCOSE 94 MG/DL (70-105); POTASSIUM 3.7 MMOL/L (3.6-5.0); SODIUM 140 MMOL/L (135-145)
[2018-01-27 09:08] LABS: BASOPHILS % (AUTO) 2 % (0-10); EOSINOPHILS % (AUTO) 3 % (0-10); HEMATOCRIT 35 % (35-52); HEMOGLOBIN 11.1 G/DL (11.5-16.0); LYMPHOCYTES # (AUTO) 0.7 X 10^3 (1.0-4.0); LYMPHOCYTES % (AUTO) 45 % (12-44); MEAN CORPUSCULAR HEMOGLOBIN 28 PG (25-34); MEAN CORPUSCULAR HGB CONC 32 G/DL (32-36); MEAN CORPUSCULAR VOLUME 87 FL (80-99); MEAN PLATELET VOLUME 10.4 FL (7.4-10.4); MONOCYTES # (AUTO) 0.2 X 10^3 (0.0-1.0); MONOCYTES % (AUTO) 15 % (0-12); NEUTROPHILS # (AUTO) 0.5 X 10^3 (1.8-7.8); NEUTROPHILS % (AUTO) 35 % (42-75); PLATELET COUNT 132 10^3/uL (130-400); RED CELL DISTRIBUTION WIDTH 17.7 % (10.0-14.5); WHITE BLOOD COUNT 1.5 10^3/uL (4.3-11.0)
[2018-01-27 09:27] LABS: BUN/CREATININE RATIO 15; CARBON DIOXIDE 21 MMOL/L (21-32); CHLORIDE 106 MMOL/L (98-107); CREATININE SERUM 0.68 MG/DL (0.60-1.30); GFR ESTIMATED > 60; GLUCOSE 121 MG/DL (70-105); POTASSIUM 3.7 MMOL/L (3.6-5.0); SODIUM 137 MMOL/L (135-145)
[2018-02-03 08:40] LABS: BASOPHILS # (AUTO) 0.3 10^3/uL (0.0-0.1); BASOPHILS % (AUTO) 4 % (0-10); EOSINOPHILS % (AUTO) 0 % (0-10); HEMATOCRIT 39 % (35-52); HEMOGLOBIN 12.6 G/DL (11.5-16.0); LYMPHOCYTES % (AUTO) 28 % (12-44); MEAN CORPUSCULAR HEMOGLOBIN 29 PG (25-34); MEAN CORPUSCULAR HGB CONC 33 G/DL (32-36); MEAN CORPUSCULAR VOLUME 88 FL (80-99); MEAN PLATELET VOLUME 9.8 FL (7.4-10.4); MONOCYTES % (AUTO) 14 % (0-12); NEUTROPHILS # (AUTO) 3.9 X 10^3 (1.8-7.8); NEUTROPHILS % (AUTO) 54 % (42-75); PLATELET COUNT 186 10^3/uL (130-400); RED BLOOD COUNT 4.41 10^6/uL (4.35-5.85); RED CELL DISTRIBUTION WIDTH 18.3 % (10.0-14.5); WHITE BLOOD COUNT 7.2 10^3/uL (4.3-11.0)
[2018-02-03 08:52] LABS: BUN/CREATININE RATIO 19; CALCIUM 9.1 MG/DL (8.5-10.1); CARBON DIOXIDE 22 MMOL/L (21-32); CHLORIDE 106 MMOL/L (98-107); CREATININE SERUM 0.79 MG/DL (0.60-1.30); GFR ESTIMATED > 60; GLUCOSE 66 MG/DL (70-105); POTASSIUM 4.2 MMOL/L (3.6-5.0); SODIUM 139 MMOL/L (135-145)
[2018-02-10 09:23] LABS: BASOPHILS % (AUTO) 1 % (0-10); EOSINOPHILS # (AUTO) 0.1 10^3/uL (0.0-0.3); EOSINOPHILS % (AUTO) 3 % (0-10); HEMATOCRIT 34 % (35-52); LYMPHOCYTES % (AUTO) 44 % (12-44); MEAN CORPUSCULAR HEMOGLOBIN 28 PG (25-34); MEAN CORPUSCULAR HGB CONC 32 G/DL (32-36); MEAN CORPUSCULAR VOLUME 88 FL (80-99); MEAN PLATELET VOLUME 10.1 FL (7.4-10.4); MONOCYTES # (AUTO) 0.3 X 10^3 (0.0-1.0); MONOCYTES % (AUTO) 15 % (0-12); NEUTROPHILS # (AUTO) 0.9 X 10^3 (1.8-7.8); NEUTROPHILS % (AUTO) 38 % (42-75); PLATELET COUNT 105 10^3/uL (130-400); RED BLOOD COUNT 3.87 10^6/uL (4.35-5.85); RED CELL DISTRIBUTION WIDTH 18.2 % (10.0-14.5); WHITE BLOOD COUNT 2.3 10^3/uL (4.3-11.0)
[2018-02-10 09:44] LABS: ALANINE AMINOTRANSFERASE 10 U/L (0-55); ALBUMIN 3.9 GM/DL (3.2-4.5); ALKALINE PHOSPHATASE 88 U/L (40-136); BILIRUBIN,TOTAL 0.3 MG/DL (0.1-1.0); BUN/CREATININE RATIO 12; CALCIUM 8.8 MG/DL (8.5-10.1); CARBON DIOXIDE 26 MMOL/L (21-32); CHLORIDE 109 MMOL/L (98-107); CREATININE SERUM 0.67 MG/DL (0.60-1.30); GFR ESTIMATED > 60; GLUCOSE 88 MG/DL (70-105); POTASSIUM 3.9 MMOL/L (3.6-5.0); SODIUM 141 MMOL/L (135-145); TOTAL PROTEIN 6.1 GM/DL (6.4-8.2)
[~2018-02-13] VITALS: Ht 150.4 cm; Wt 51.3 kg
[~2018-02-13 11:01] MED LIST changes: -CATHETER FLUSH 10 ML SYR IV PRN; +CTR IV SCH; +FILGRASTIM 480 MCG/1.6 ML VIAL CANCER CENTER SQ SCH; +FOSAPREPITANT DIMEGLUMINE 150 MG in NS (IVPB) CANCER CENTER ONLY 150 ML IV SCH; +GEMCITABINE HCL IV SCH; +NS IV 500 ML (CANCER CENTER) IV SCH; +NS IV SCH; +ONDANSETRON 8 MG, DEXAMETHASONE 4 MG/NS 50 ML IVPB (Cancer Ctr) IV SCH; +PACLITAXEL PROTEIN IV SCH; +PALONOSETRON HCL 0.25 MG, DEXAMETHASONE INJECTION 10 MG in NS (IVPB) CANCER CENTER 50 ML IV SCH; +[UNRECOGNIZED DRUG - OTHER] IV SCH
[2018-02-17 08:50] LABS: BASOPHILS # (AUTO) 0.2 10^3/uL (0.0-0.1); BASOPHILS % (AUTO) 3 % (0-10); EOSINOPHILS % (AUTO) 1 % (0-10); HEMATOCRIT 35 % (35-52); HEMOGLOBIN 11.7 G/DL (11.5-16.0); LYMPHOCYTES # (AUTO) 1.6 X 10^3 (1.0-4.0); LYMPHOCYTES % (AUTO) 26 % (12-44); MEAN CORPUSCULAR HEMOGLOBIN 29 PG (25-34); MEAN CORPUSCULAR HGB CONC 33 G/DL (32-36); MEAN CORPUSCULAR VOLUME 88 FL (80-99); MONOCYTES # (AUTO) 0.8 X 10^3 (0.0-1.0); MONOCYTES % (AUTO) 13 % (0-12); NEUTROPHILS # (AUTO) 3.6 X 10^3 (1.8-7.8); NEUTROPHILS % (AUTO) 59 % (42-75); PLATELET COUNT 175 10^3/uL (130-400); RED BLOOD COUNT 4.01 10^6/uL (4.35-5.85); RED CELL DISTRIBUTION WIDTH 18.1 % (10.0-14.5); WHITE BLOOD COUNT 6.1 10^3/uL (4.3-11.0)
[2018-02-17 09:06] LABS: BUN/CREATININE RATIO 16; CALCIUM 9.1 MG/DL (8.5-10.1); CARBON DIOXIDE 25 MMOL/L (21-32); CHLORIDE 106 MMOL/L (98-107); GFR ESTIMATED > 60; GLUCOSE 87 MG/DL (70-105); POTASSIUM 4.1 MMOL/L (3.6-5.0); SODIUM 139 MMOL/L (135-145)
== END 2018-02-17 08:47 | disposition home or self-care (01) ==
LOC: ONC 11:01
PROVIDERS: ATTEND Internal Medicine Hematology & Oncology
DX: Z51.11 Encounter for antineoplastic chemotherapy (principal); C25.1 Malignant neoplasm of body of pancreas; E03.9 Hypothyroidism, unspecified; F32.9 Major depressive disorder, single episode, unspecified; Z79.899 Other long term (current) drug therapy
CPT/HCPCS: 36415; 36591; 80048; 80053; 84443; 85025; 86301; 96367; 96372; 96375; 96413; 96417

== ENCOUNTER → 2018-03-31 | Outpatient (CLI) | payer BC ==
[~2018-03-31] MED LIST changes: +BARIUM SUSPENSION 2.1% (VANILLA SILQ) 450 ML PO ONE; +CATHETER FLUSH 10 ML SYR IV PRN; -CTR IV SCH; -FILGRASTIM 480 MCG/1.6 ML VIAL CANCER CENTER SQ SCH; -FOSAPREPITANT DIMEGLUMINE 150 MG in NS (IVPB) CANCER CENTER ONLY 150 ML IV SCH; -GEMCITABINE HCL IV SCH; +IOHEXOL 350 MG/ML 100 ML (OMNIPAQUE 350) VIAL IV ONE; +NS 250 ML (IVPB) BAG IV ONE; -NS IV 500 ML (CANCER CENTER) IV SCH; -NS IV SCH; -ONDANSETRON 8 MG, DEXAMETHASONE 4 MG/NS 50 ML IVPB (Cancer Ctr) IV SCH; -PACLITAXEL PROTEIN IV SCH; -PALONOSETRON HCL 0.25 MG, DEXAMETHASONE INJECTION 10 MG in NS (IVPB) CANCER CENTER 50 ML IV SCH; +RECEIVED CONTRAST (Hold Metformin) IV SCH; -[UNRECOGNIZED DRUG - OTHER] IV SCH
--- NOTE | 2018-03-31 11:19 | Diagnostic Imaging Report ---
PROCEDURE: CT chest with contrast. CT abdomen and pelvis with and without contrast. TECHNIQUE: Pre and post intravenous contrast axial imaging of the abdomen and pelvis and post contrast axial imaging of the chest were performed. INDICATION: Pancreatic cancer. COMPARISON: 01/01/2018. FINDINGS: CT CHEST: We again note no lung mass or suspicious pulmonary nodule. No acute infiltrate or thoracic effusion. There is no lymphadenopathy. No acute chest wall disease. A catheter via the left IJ has its distal tip secured near the cavoatrial junction in good position. CT ABDOMEN/PELVIS: Hypodensity and parenchymal distortion at the level of the epicenter pancreatic neck are less conspicuous than on the prior exam. The largest measurable nodule is 1.7 x 0.9 cm, previously 2.9 x 1.4 cm. The hepatic cysts are unchanged. 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 Scattered hepatic cysts are stable with no enhancing liver mass on followup. The spleen is unremarkable. The adrenals are negative. There is no ascites. There is colonic constipation with a normal appendix and no appendicitis. No suspicious lytic or sclerotic bony lesion. IMPRESSION: CT CHEST: Stable negative chest. CT ABDOMEN/PELVIS: Hypodensity and distortion of the pancreas are less conspicuous and measure smaller than on the prior exam. Stable hepatic cysts with no enhancing liver mass. Cavernous transformation of the iron hepatis, unchanged. No ascites. Constipation without focal impaction or bowel obstruction suggested, mild. Dictated by: Dictated on workstation # [id number]
--- NOTE | 2018-03-31 15:42 | Diagnostic Imaging Report ---
EXAM: Whole-body bone scan INDICATION: Pancreatic cancer TECHNIQUE: This study was performed following administration of 26.7 mCi of 99 technetium MDP. Anterior and posterior whole-body images were obtained. Spot films of the calvarium and the thorax were also obtained in the lateral projection. The previous whole body bone scan of 01/01/2018 failed to show any sign of metastatic disease or of an acute abnormality. On this study, there is still generalized distribution of the radiotracer throughout the osseous structures. There is no focal area of increased or decreased activity to indicate neoplastic disease. Both kidneys do show excretion of the radiotracer. IMPRESSION: The appearance of the bone scan is stable when compared to the previous study. There is still no evidence for an acute abnormality or for metastatic disease. Dictated by: Dictated on workstation # [id number]
== END ==
LOC: CARD 10:33
PROVIDERS: ATTEND Nurse Practitioner Adult Health
DX: C25.1 Malignant neoplasm of body of pancreas (principal)
CPT/HCPCS: 71260; 74178; 78306

== ENCOUNTER 2018-05-15 11:51 | Outpatient (RCR) | payer BC ==
[2018-02-24 09:14] LABS: BASOPHILS % (AUTO) 1 % (0-10); EOSINOPHILS # (AUTO) 0.1 10^3/uL (0.0-0.3); EOSINOPHILS % (AUTO) 3 % (0-10); HEMATOCRIT 33 % (35-52); HEMOGLOBIN 10.6 G/DL (11.5-16.0); LYMPHOCYTES # (AUTO) 1.1 X 10^3 (1.0-4.0); LYMPHOCYTES % (AUTO) 47 % (12-44); MEAN CORPUSCULAR HEMOGLOBIN 28 PG (25-34); MEAN CORPUSCULAR HGB CONC 32 G/DL (32-36); MEAN CORPUSCULAR VOLUME 88 FL (80-99); MEAN PLATELET VOLUME 10.2 FL (7.4-10.4); MONOCYTES # (AUTO) 0.4 X 10^3 (0.0-1.0); MONOCYTES % (AUTO) 16 % (0-12); NEUTROPHILS # (AUTO) 0.8 X 10^3 (1.8-7.8); NEUTROPHILS % (AUTO) 33 % (42-75); PLATELET COUNT 112 10^3/uL (130-400); RED BLOOD COUNT 3.75 10^6/uL (4.35-5.85); RED CELL DISTRIBUTION WIDTH 18.1 % (10.0-14.5); WHITE BLOOD COUNT 2.3 10^3/uL (4.3-11.0)
[2018-02-24 09:34] LABS: BUN/CREATININE RATIO 13; CALCIUM 8.7 MG/DL (8.5-10.1); CARBON DIOXIDE 23 MMOL/L (21-32); CHLORIDE 109 MMOL/L (98-107); CREATININE SERUM 0.71 MG/DL (0.60-1.30); GFR ESTIMATED > 60; GLUCOSE 123 MG/DL (70-105); POTASSIUM 3.5 MMOL/L (3.6-5.0); SODIUM 139 MMOL/L (135-145)
[2018-03-03 09:05] LABS: BASOPHILS # (AUTO) 0.1 10^3/uL (0.0-0.1); BASOPHILS % (AUTO) 1 % (0-10); EOSINOPHILS % (AUTO) 1 % (0-10); HEMATOCRIT 34 % (35-52); HEMOGLOBIN 10.9 G/DL (11.5-16.0); LYMPHOCYTES # (AUTO) 1.8 X 10^3 (1.0-4.0); LYMPHOCYTES % (AUTO) 28 % (12-44); MEAN CORPUSCULAR HEMOGLOBIN 28 PG (25-34); MEAN CORPUSCULAR HGB CONC 32 G/DL (32-36); MEAN CORPUSCULAR VOLUME 88 FL (80-99); MEAN PLATELET VOLUME 9.9 FL (7.4-10.4); MONOCYTES # (AUTO) 0.9 X 10^3 (0.0-1.0); MONOCYTES % (AUTO) 15 % (0-12); NEUTROPHILS # (AUTO) 3.6 X 10^3 (1.8-7.8); NEUTROPHILS % (AUTO) 56 % (42-75); PLATELET COUNT 208 10^3/uL (130-400); RED BLOOD COUNT 3.87 10^6/uL (4.35-5.85); RED CELL DISTRIBUTION WIDTH 18.2 % (10.0-14.5); WHITE BLOOD COUNT 6.4 10^3/uL (4.3-11.0)
[2018-03-03 09:20] LABS: BUN/CREATININE RATIO 11; CALCIUM 8.9 MG/DL (8.5-10.1); CARBON DIOXIDE 26 MMOL/L (21-32); CHLORIDE 106 MMOL/L (98-107); CREATININE SERUM 0.74 MG/DL (0.60-1.30); GFR ESTIMATED > 60; GLUCOSE 84 MG/DL (70-105); POTASSIUM 4.1 MMOL/L (3.6-5.0); SODIUM 139 MMOL/L (135-145)
[2018-03-10 09:22] LABS: BASOPHILS % (AUTO) 2 % (0-10); EOSINOPHILS # (AUTO) 0.1 10^3/uL (0.0-0.3); EOSINOPHILS % (AUTO) 3 % (0-10); HEMATOCRIT 34 % (35-52); HEMOGLOBIN 10.8 G/DL (11.5-16.0); LYMPHOCYTES # (AUTO) 0.9 X 10^3 (1.0-4.0); LYMPHOCYTES % (AUTO) 45 % (12-44); MEAN CORPUSCULAR HEMOGLOBIN 28 PG (25-34); MEAN CORPUSCULAR HGB CONC 32 G/DL (32-36); MEAN CORPUSCULAR VOLUME 88 FL (80-99); MONOCYTES # (AUTO) 0.3 X 10^3 (0.0-1.0); MONOCYTES % (AUTO) 13 % (0-12); NEUTROPHILS # (AUTO) 0.8 X 10^3 (1.8-7.8); NEUTROPHILS % (AUTO) 38 % (42-75); PLATELET COUNT 93 10^3/uL (130-400); RED BLOOD COUNT 3.87 10^6/uL (4.35-5.85); RED CELL DISTRIBUTION WIDTH 17.4 % (10.0-14.5)
[2018-03-10 09:39] LABS: ALANINE AMINOTRANSFERASE 13 U/L (0-55); ALBUMIN 3.9 GM/DL (3.2-4.5); ALKALINE PHOSPHATASE 93 U/L (40-136); BILIRUBIN,TOTAL 0.4 MG/DL (0.1-1.0); BUN/CREATININE RATIO 14; CALCIUM 8.8 MG/DL (8.5-10.1); CARBON DIOXIDE 22 MMOL/L (21-32); CHLORIDE 108 MMOL/L (98-107); CREATININE SERUM 0.69 MG/DL (0.60-1.30); GFR ESTIMATED > 60; GLUCOSE 118 MG/DL (70-105); POTASSIUM 3.6 MMOL/L (3.6-5.0); SODIUM 140 MMOL/L (135-145); TOTAL PROTEIN 6.2 GM/DL (6.4-8.2)
[2018-03-11 12:30] LABS: BILIRUBIN,URINE NEGATIVE (NEGATIVE); CLARITY,URINE CLEAR; COLOR,URINE YELLOW; GLUCOSE, URINE (UA) NEGATIVE (NEGATIVE); KETONES,URINE 1+ (NEGATIVE); LEUKOCYTE ESTERASE ,URINE 1+ (NEGATIVE); NITRITE,URINE NEGATIVE (NEGATIVE); PH,URINE 6 (5-9); PROTEIN,URINE 2+ (NEGATIVE); UROBILINOGEN,URINE NORMAL (NORMAL)
[2018-03-11 12:38] LABS: BACTERIA,URINE TRACE /HPF; SQUAMOUS EPITHELIAL CELL,UR 0-2 /HPF; WBC,URINE 0-2 /HPF
[2018-03-17 08:43] LABS: EOSINOPHILS % (AUTO) 0 % (0-10); HEMATOCRIT 35 % (35-52); HEMOGLOBIN 11.2 G/DL (11.5-16.0); LYMPHOCYTES % (AUTO) 22 % (12-44); MEAN CORPUSCULAR HEMOGLOBIN 28 PG (25-34); MEAN CORPUSCULAR HGB CONC 32 G/DL (32-36); MEAN CORPUSCULAR VOLUME 89 FL (80-99); MEAN PLATELET VOLUME 10.1 FL (7.4-10.4); MONOCYTES % (AUTO) 15 % (0-12); NEUTROPHILS % (AUTO) 62 % (42-75); PLATELET COUNT 186 10^3/uL (130-400); RED BLOOD COUNT 3.94 10^6/uL (4.35-5.85); RED CELL DISTRIBUTION WIDTH 17.9 % (10.0-14.5)
[2018-03-17 08:44] LABS: BASOPHILS # (AUTO) 0.1 10^3/uL (0.0-0.1); BASOPHILS % (AUTO) 1 % (0-10); LYMPHOCYTES # (AUTO) 1.1 X 10^3 (1.0-4.0); MONOCYTES # (AUTO) 0.7 X 10^3 (0.0-1.0); NEUTROPHILS # (AUTO) 3.1 X 10^3 (1.8-7.8)
[2018-03-17 09:01] LABS: BUN/CREATININE RATIO 13; CALCIUM 9.1 MG/DL (8.5-10.1); CARBON DIOXIDE 24 MMOL/L (21-32); CHLORIDE 106 MMOL/L (98-107); CREATININE SERUM 0.72 MG/DL (0.60-1.30); GFR ESTIMATED > 60; GLUCOSE 99 MG/DL (70-105); POTASSIUM 3.7 MMOL/L (3.6-5.0); SODIUM 139 MMOL/L (135-145)
[2018-03-24 09:27] LABS: BASOPHILS % (AUTO) 1 % (0-10); EOSINOPHILS # (AUTO) 0.1 10^3/uL (0.0-0.3); EOSINOPHILS % (AUTO) 3 % (0-10); HEMATOCRIT 35 % (35-52); HEMOGLOBIN 11.1 G/DL (11.5-16.0); LYMPHOCYTES # (AUTO) 0.8 X 10^3 (1.0-4.0); LYMPHOCYTES % (AUTO) 36 % (12-44); MEAN CORPUSCULAR HEMOGLOBIN 28 PG (25-34); MEAN CORPUSCULAR HGB CONC 31 G/DL (32-36); MEAN CORPUSCULAR VOLUME 89 FL (80-99); MEAN PLATELET VOLUME 10.2 FL (7.4-10.4); MONOCYTES # (AUTO) 0.4 X 10^3 (0.0-1.0); MONOCYTES % (AUTO) 17 % (0-12); NEUTROPHILS # (AUTO) 0.9 X 10^3 (1.8-7.8); NEUTROPHILS % (AUTO) 42 % (42-75); PLATELET COUNT 100 10^3/uL (130-400); RED BLOOD COUNT 3.96 10^6/uL (4.35-5.85); RED CELL DISTRIBUTION WIDTH 17.1 % (10.0-14.5); WHITE BLOOD COUNT 2.1 10^3/uL (4.3-11.0)
[2018-03-24 09:53] LABS: BUN/CREATININE RATIO 14; CALCIUM 9.2 MG/DL (8.5-10.1); CARBON DIOXIDE 21 MMOL/L (21-32); CHLORIDE 108 MMOL/L (98-107); CREATININE SERUM 0.66 MG/DL (0.60-1.30); GFR ESTIMATED > 60; GLUCOSE 93 MG/DL (70-105); POTASSIUM 3.7 MMOL/L (3.6-5.0); SODIUM 141 MMOL/L (135-145)
[2018-03-31 11:59] LABS: BASOPHILS # (AUTO) 0.1 10^3/uL (0.0-0.1); BASOPHILS % (AUTO) 1 % (0-10); EOSINOPHILS % (AUTO) 0 % (0-10); HEMATOCRIT 36 % (35-52); HEMOGLOBIN 11.3 G/DL (11.5-16.0); LYMPHOCYTES # (AUTO) 1.4 X 10^3 (1.0-4.0); LYMPHOCYTES % (AUTO) 20 % (12-44); MEAN CORPUSCULAR HEMOGLOBIN 28 PG (25-34); MEAN CORPUSCULAR HGB CONC 32 G/DL (32-36); MEAN CORPUSCULAR VOLUME 89 FL (80-99); MEAN PLATELET VOLUME 10.6 FL (7.4-10.4); MONOCYTES # (AUTO) 0.9 X 10^3 (0.0-1.0); MONOCYTES % (AUTO) 13 % (0-12); NEUTROPHILS # (AUTO) 4.5 X 10^3 (1.8-7.8); NEUTROPHILS % (AUTO) 66 % (42-75); PLATELET COUNT 207 10^3/uL (130-400); WHITE BLOOD COUNT 6.9 10^3/uL (4.3-11.0)
[2018-03-31 12:20] LABS: BUN/CREATININE RATIO 13; CARBON DIOXIDE 27 MMOL/L (21-32); CHLORIDE 104 MMOL/L (98-107); GFR ESTIMATED > 60; GLUCOSE 74 MG/DL (70-105); POTASSIUM 5.8 MMOL/L (3.6-5.0); SODIUM 138 MMOL/L (135-145)
[2018-04-08 09:37] LABS: BASOPHILS % (AUTO) 1 % (0-10); EOSINOPHILS # (AUTO) 0.1 10^3/uL (0.0-0.3); EOSINOPHILS % (AUTO) 3 % (0-10); HEMATOCRIT 36 % (35-52); HEMOGLOBIN 11.4 G/DL (11.5-16.0); LYMPHOCYTES # (AUTO) 0.7 X 10^3 (1.0-4.0); LYMPHOCYTES % (AUTO) 32 % (12-44); MEAN CORPUSCULAR HEMOGLOBIN 28 PG (25-34); MEAN CORPUSCULAR HGB CONC 32 G/DL (32-36); MEAN CORPUSCULAR VOLUME 89 FL (80-99); MEAN PLATELET VOLUME 9.9 FL (7.4-10.4); MONOCYTES # (AUTO) 0.4 X 10^3 (0.0-1.0); MONOCYTES % (AUTO) 19 % (0-12); NEUTROPHILS % (AUTO) 45 % (42-75); PLATELET COUNT 134 10^3/uL (130-400); RED BLOOD COUNT 4.07 10^6/uL (4.35-5.85); WHITE BLOOD COUNT 2.2 10^3/uL (4.3-11.0)
[2018-04-08 09:55] LABS: ALANINE AMINOTRANSFERASE 10 U/L (0-55); ALBUMIN 4.2 GM/DL (3.2-4.5); ALKALINE PHOSPHATASE 95 U/L (40-136); BILIRUBIN,TOTAL 0.5 MG/DL (0.1-1.0); BUN/CREATININE RATIO 13; CALCIUM 8.9 MG/DL (8.5-10.1); CARBON DIOXIDE 23 MMOL/L (21-32); CHLORIDE 107 MMOL/L (98-107); CREATININE SERUM 0.77 MG/DL (0.60-1.30); GFR ESTIMATED > 60; GLUCOSE 115 MG/DL (70-105); POTASSIUM 3.7 MMOL/L (3.6-5.0); SODIUM 140 MMOL/L (135-145); TOTAL PROTEIN 6.5 GM/DL (6.4-8.2)
[2018-04-21 10:18] LABS: BASOPHILS % (AUTO) 0 % (0-10); EOSINOPHILS % (AUTO) 0 % (0-10); HEMATOCRIT 38 % (35-52); HEMOGLOBIN 12.2 G/DL (11.5-16.0); LYMPHOCYTES # (AUTO) 1.5 X 10^3 (1.0-4.0); LYMPHOCYTES % (AUTO) 29 % (12-44); MEAN CORPUSCULAR HEMOGLOBIN 28 PG (25-34); MEAN CORPUSCULAR HGB CONC 32 G/DL (32-36); MEAN CORPUSCULAR VOLUME 88 FL (80-99); MEAN PLATELET VOLUME 10.8 FL (7.4-10.4); MONOCYTES # (AUTO) 0.6 X 10^3 (0.0-1.0); MONOCYTES % (AUTO) 11 % (0-12); NEUTROPHILS # (AUTO) 3.1 X 10^3 (1.8-7.8); NEUTROPHILS % (AUTO) 59 % (42-75); PLATELET COUNT 136 10^3/uL (130-400); RED BLOOD COUNT 4.33 10^6/uL (4.35-5.85); RED CELL DISTRIBUTION WIDTH 16.9 % (10.0-14.5); WHITE BLOOD COUNT 5.2 10^3/uL (4.3-11.0)
[2018-04-21 10:39] LABS: BUN/CREATININE RATIO 15; CALCIUM 9.2 MG/DL (8.5-10.1); CARBON DIOXIDE 23 MMOL/L (21-32); CHLORIDE 106 MMOL/L (98-107); CREATININE SERUM 0.75 MG/DL (0.60-1.30); GFR ESTIMATED > 60; GLUCOSE 127 MG/DL (70-105); POTASSIUM 3.8 MMOL/L (3.6-5.0); SODIUM 140 MMOL/L (135-145)
[2018-04-28 09:04] LABS: BASOPHILS % (AUTO) 1 % (0-10); EOSINOPHILS % (AUTO) 2 % (0-10); HEMATOCRIT 33 % (35-52); HEMOGLOBIN 10.4 G/DL (11.5-16.0); LYMPHOCYTES % (AUTO) 50 % (12-44); MEAN CORPUSCULAR HEMOGLOBIN 29 PG (25-34); MEAN CORPUSCULAR HGB CONC 32 G/DL (32-36); MEAN CORPUSCULAR VOLUME 90 FL (80-99); MEAN PLATELET VOLUME 9.7 FL (7.4-10.4); MONOCYTES # (AUTO) 0.3 X 10^3 (0.0-1.0); MONOCYTES % (AUTO) 14 % (0-12); NEUTROPHILS # (AUTO) 0.6 X 10^3 (1.8-7.8); NEUTROPHILS % (AUTO) 33 % (42-75); PLATELET COUNT 90 10^3/uL (130-400); RED BLOOD COUNT 3.63 10^6/uL (4.35-5.85); RED CELL DISTRIBUTION WIDTH 16.7 % (10.0-14.5); WHITE BLOOD COUNT 1.9 10^3/uL (4.3-11.0)
[2018-04-28 09:22] LABS: BUN/CREATININE RATIO 15; CALCIUM 8.7 MG/DL (8.5-10.1); CARBON DIOXIDE 24 MMOL/L (21-32); CHLORIDE 108 MMOL/L (98-107); CREATININE SERUM 0.72 MG/DL (0.60-1.30); GFR ESTIMATED > 60; GLUCOSE 115 MG/DL (70-105); POTASSIUM 3.6 MMOL/L (3.6-5.0); SODIUM 140 MMOL/L (135-145)
[2018-05-05 09:22] LABS: BASOPHILS % (AUTO) 1 % (0-10); EOSINOPHILS % (AUTO) 1 % (0-10); HEMATOCRIT 34 % (35-52); LYMPHOCYTES # (AUTO) 1.4 X 10^3 (1.0-4.0); LYMPHOCYTES % (AUTO) 32 % (12-44); MEAN CORPUSCULAR HEMOGLOBIN 29 PG (25-34); MEAN CORPUSCULAR HGB CONC 32 G/DL (32-36); MEAN CORPUSCULAR VOLUME 91 FL (80-99); MONOCYTES # (AUTO) 0.6 X 10^3 (0.0-1.0); MONOCYTES % (AUTO) 14 % (0-12); NEUTROPHILS # (AUTO) 2.4 X 10^3 (1.8-7.8); NEUTROPHILS % (AUTO) 53 % (42-75); PLATELET COUNT 148 10^3/uL (130-400); RED BLOOD COUNT 3.78 10^6/uL (4.35-5.85); RED CELL DISTRIBUTION WIDTH 17.3 % (10.0-14.5); WHITE BLOOD COUNT 4.4 10^3/uL (4.3-11.0)
[2018-05-05 09:36] LABS: BUN/CREATININE RATIO 10; CALCIUM 8.7 MG/DL (8.5-10.1); CARBON DIOXIDE 25 MMOL/L (21-32); CHLORIDE 106 MMOL/L (98-107); CREATININE SERUM 0.79 MG/DL (0.60-1.30); GFR ESTIMATED > 60; GLUCOSE 103 MG/DL (70-105); SODIUM 141 MMOL/L (135-145)
[2018-05-13 10:24] LABS: BASOPHILS % (AUTO) 1 % (0-10); EOSINOPHILS % (AUTO) 1 % (0-10); HEMATOCRIT 33 % (35-52); HEMOGLOBIN 10.8 G/DL (11.5-16.0); LYMPHOCYTES # (AUTO) 0.4 X 10^3 (1.0-4.0); LYMPHOCYTES % (AUTO) 21 % (12-44); MEAN CORPUSCULAR HEMOGLOBIN 29 PG (25-34); MEAN CORPUSCULAR HGB CONC 32 G/DL (32-36); MEAN CORPUSCULAR VOLUME 89 FL (80-99); MEAN PLATELET VOLUME 9.6 FL (7.4-10.4); MONOCYTES # (AUTO) 0.4 X 10^3 (0.0-1.0); MONOCYTES % (AUTO) 22 % (0-12); NEUTROPHILS % (AUTO) 55 % (42-75); PLATELET COUNT 157 10^3/uL (130-400); RED BLOOD COUNT 3.75 10^6/uL (4.35-5.85); RED CELL DISTRIBUTION WIDTH 16.7 % (10.0-14.5); WHITE BLOOD COUNT 1.8 10^3/uL (4.3-11.0)
[2018-05-13 10:42] LABS: ALANINE AMINOTRANSFERASE 15 U/L (0-55); ALBUMIN 4.1 GM/DL (3.2-4.5); ALKALINE PHOSPHATASE 97 U/L (40-136); BILIRUBIN,TOTAL 0.4 MG/DL (0.1-1.0); BUN/CREATININE RATIO 13; CALCIUM 8.7 MG/DL (8.5-10.1); CARBON DIOXIDE 23 MMOL/L (21-32); CHLORIDE 110 MMOL/L (98-107); CREATININE SERUM 0.67 MG/DL (0.60-1.30); GFR ESTIMATED > 60; GLUCOSE 102 MG/DL (70-105); SODIUM 140 MMOL/L (135-145); TOTAL PROTEIN 6.3 GM/DL (6.4-8.2)
[~2018-05-15] VITALS: Ht 151.1 cm; Wt 51.7 kg
[~2018-05-15 11:51] MED LIST changes: +ALTEPLASE 2 MG (CATHFLO) CANCER CENTER IV ONE; -BARIUM SUSPENSION 2.1% (VANILLA SILQ) 450 ML PO ONE; -CATHETER FLUSH 10 ML SYR IV PRN; +CTR IV SCH; +FILGRASTIM 480 MCG/1.6 ML VIAL CANCER CENTER SQ SCH; +FOSAPREPITANT DIMEGLUMINE 150 MG in NS (IVPB) CANCER CENTER ONLY 150 ML IV SCH; +GEMCITABINE HCL (GENERIC) 1,000 MG, GEMCITABINE HCL (GENERIC) 100 MG in NS (IVPB) CANCE... IV SCH; +GEMCITABINE HCL IV SCH; -IOHEXOL 350 MG/ML 100 ML (OMNIPAQUE 350) VIAL IV ONE; -NS 250 ML (IVPB) BAG IV ONE; +NS IV 500 ML (CANCER CENTER) IV SCH; +PACLITAXEL PROTEIN IV SCH; +PALONOSETRON HCL 0.25 MG, DEXAMETHASONE INJECTION 10 MG in NS (IVPB) CANCER CENTER 50 ML IV SCH; -RECEIVED CONTRAST (Hold Metformin) IV SCH; +[UNRECOGNIZED DRUG - OTHER] IV SCH
[2018-05-16] MEDS ORDERED: TBO-FILGRASTIM 480 MCG/0.8 ML (GRANIX) SQ NR (08:23)
[2018-05-16 13:35] VITALS: BP 129/79
== END 2018-05-18 | disposition home or self-care (01) ==
LOC: ONC 11:51
PROVIDERS: ATTEND Internal Medicine Hematology & Oncology
DX: Z51.11 Encounter for antineoplastic chemotherapy (principal); C25.1 Malignant neoplasm of body of pancreas; E03.9 Hypothyroidism, unspecified; F32.9 Major depressive disorder, single episode, unspecified; Z79.899 Other long term (current) drug therapy
CPT/HCPCS: 36415; 36591; 36593; 80048; 80053; 81000; 85025; 86301; 96367; 96372; 96375; 96413; 96417; 99213

== ENCOUNTER → 2018-05-18 | Outpatient (CLI) | payer BC ==
[~2018-05-18] MED LIST changes: -ALTEPLASE 2 MG (CATHFLO) CANCER CENTER IV ONE; -CTR IV SCH; -FILGRASTIM 480 MCG/1.6 ML VIAL CANCER CENTER SQ SCH; -FOSAPREPITANT DIMEGLUMINE 150 MG in NS (IVPB) CANCER CENTER ONLY 150 ML IV SCH; -GEMCITABINE HCL (GENERIC) 1,000 MG, GEMCITABINE HCL (GENERIC) 100 MG in NS (IVPB) CANCE... IV SCH; -GEMCITABINE HCL IV SCH; -NS IV 500 ML (CANCER CENTER) IV SCH; -PACLITAXEL PROTEIN IV SCH; -PALONOSETRON HCL 0.25 MG, DEXAMETHASONE INJECTION 10 MG in NS (IVPB) CANCER CENTER 50 ML IV SCH; -[UNRECOGNIZED DRUG - OTHER] IV SCH
--- NOTE | 2018-05-19 21:34 | Diagnostic Imaging Report ---
EXAM: PET/CT INDICATION: Pancreatic cancer TECHNIQUE: PET/CT imaging was obtained from the base of the skull through the pelvis after the administration of 12.27 mCi of F-[address] imaging was utilized for localization and attenuation correction purposes. The low energy CT utilized for attenuation correction is not considered to be of high enough spatial resolution to allow in and of itself a separate anatomical analysis. COMPARISON: The previous PET/CT exam performed on 12/10/2016 noted a pancreatic body mass with mild to moderate hypermetabolism. The mass had a maximum SUV of 5. This finding was felt to be neoplastic in nature. FINDINGS: On this exam, there is virtually no hypermetabolic activity in the pancreatic bed. There is no other hypermetabolic focus to suggest the presence of neoplasm. The previous study did show some increased activity in the left lobe of the thyroid. That finding has not changed significantly. There also appears to be some activity associated with the right lobe and I suspect these findings are physiologic in nature. There is physiologic activity in the kidneys, bowel, bladder and brain. Other CT images fail to show any sign of an acute abnormality. IMPRESSION: 1. The appearance of the PET/CT exam has improved since the prior exam as there is virtually no hypermetabolic activity associated with the body of the pancreas. 2. There is no other hypermetabolic focus to suggest metastatic disease. Dictated by: Dictated on workstation # [id number]
== END ==
LOC: RAD 10:24
PROVIDERS: ATTEND Nurse Practitioner Adult Health
DX: C25.1 Malignant neoplasm of body of pancreas (principal); R97.8 Other abnormal tumor markers

== ENCOUNTER → 2018-08-10 | Outpatient (CLI) | payer BC ==
[~2018-08-10] MED LIST changes: +CATHETER FLUSH 10 ML SYR IV PRN; +HOLD METFORMIN - RECEIVED CONTRAST 20 ML VIAL IV SCH; +IOHEXOL 350 MG/ML 100 ML (OMNIPAQUE 350) VIAL IV ONE
--- NOTE | 2018-08-10 13:19 | Diagnostic Imaging Report ---
PROCEDURE: CT chest, abdomen, and pelvis with contrast. TECHNIQUE: Multiple contiguous axial images were obtained through the chest, abdomen, and pelvis after the administration of intravenous contrast. Auto Exposure Controls were utilized during the CT exam to meet ALARA standards for radiation dose reduction. INDICATION: Followup pancreatic carcinoma and vaginal mass. Correlation is made with prior CT from 03/31/2018. CT CHEST: A left chest wall port has the tip at the SVC right atrial junction. No axillary, hilar or mediastinal lymphadenopathy is detected. No pericardial or pleural fluid is identified. No pulmonary mass or infiltrate is detected. IMPRESSION: Stable unremarkable CT of the chest. No thoracic lymphadenopathy or evidence of pulmonary metastatic disease is identified. CT ABDOMEN AND PELVIS: Hepatic cysts are again noted. No new hepatic mass is detected. Gallbladder is unremarkable. No biliary duct dilatation is seen. There is low density in the region of the pancreatic body which appears to be more prominent when compared with prior CT. This measures 14 mm. Remainder of the pancreas is unremarkable. Numerous collateral vessels in the iron hepatis are again noted consistent with cavernous transformation. There is blood flow identified within the portal veins, however. The spleen appears stable. No adrenal mass is detected. Kidneys are unremarkable. Aorta is nonaneurysmal. No definite central, retroperitoneal or mesenteric lymphadenopathy is seen. Spondylitis bowel loops are normal caliber. There is some free fluid in the pelvis. There appears to be some generalized colonic wall thickening particularly involving the descending colon and sigmoid. This is consistent with nonspecific colitis. Transverse colon does not appear to be appreciably thick walled. The ascending colon is unremarkable. Small small bowel loops are normal caliber. No free air or fluid collection is seen. Bladder is unremarkable. IMPRESSION: 1. There has been increase in prominence of an area of low density in the region of the pancreatic body, suspicious for an enlarging pancreatic mass. No pancreatic or biliary duct dilatation is seen. 2. A long segment of circumferential wall thickening involving the left colon and sigmoid consistent with nonspecific colitis. There is some mild free fluid present in the pelvis but no fluid collection, bowel obstruction or free air is detected. Dictated by: Dictated on workstation # [id number]
--- NOTE | 2018-08-10 16:32 | Diagnostic Imaging Report ---
INDICATION: Pancreatic carcinoma. The patient also complains of abdominal pain and pelvic pain for one month. TECHNIQUE: The patient was administered 25.6 mCi technetium 99m MDP intravenously and whole-body imaging was performed after a three-hour delay. CORRELATION is made with prior whole body bone scan from 01/01/2018. FINDINGS: Normal uptake of activity by the axial and appendicular skeleton is seen. There is uptake by the kidneys with excretion to the urinary bladder. The bone scan remains unremarkable. No abnormal foci are identified to suggest osseous metastatic disease. IMPRESSION: Stable unremarkable whole body bone scan without scintigraphic evidence of osseous metastatic disease. Dictated by: Dictated on workstation # [id number]
== END ==
LOC: CARD 11:49
PROVIDERS: ATTEND Nurse Practitioner Adult Health
DX: Z01.89 Encounter for other specified special examinations (principal); C25.1 Malignant neoplasm of body of pancreas; N89.9 Noninflammatory disorder of vagina, unspecified
CPT/HCPCS: 71260; 74177; 78306

== ENCOUNTER 2018-08-17 09:20 | Outpatient (RCR) | payer BC ==
[2018-05-20 11:49] LABS: BASOPHILS % (AUTO) 1 % (0-10); EOSINOPHILS % (AUTO) 0 % (0-10); HEMATOCRIT 34 % (35-52); HEMOGLOBIN 11.1 G/DL (11.5-16.0); LYMPHOCYTES # (AUTO) 1.4 X 10^3 (1.0-4.0); LYMPHOCYTES % (AUTO) 29 % (12-44); MEAN CORPUSCULAR HEMOGLOBIN 29 PG (25-34); MEAN CORPUSCULAR HGB CONC 32 G/DL (32-36); MEAN CORPUSCULAR VOLUME 90 FL (80-99); MEAN PLATELET VOLUME 10.6 FL (7.4-10.4); MONOCYTES # (AUTO) 0.6 X 10^3 (0.0-1.0); MONOCYTES % (AUTO) 13 % (0-12); NEUTROPHILS # (AUTO) 2.8 X 10^3 (1.8-7.8); NEUTROPHILS % (AUTO) 58 % (42-75); PLATELET COUNT 164 10^3/uL (130-400); RED CELL DISTRIBUTION WIDTH 16.8 % (10.0-14.5); WHITE BLOOD COUNT 4.8 10^3/uL (4.3-11.0)
[2018-05-20 12:07] LABS: BUN/CREATININE RATIO 8; CALCIUM 8.7 MG/DL (8.5-10.1); CARBON DIOXIDE 23 MMOL/L (21-32); CHLORIDE 104 MMOL/L (98-107); CREATININE SERUM 0.71 MG/DL (0.60-1.30); GFR ESTIMATED > 60; GLUCOSE 89 MG/DL (70-105); SODIUM 137 MMOL/L (135-145)
[2018-05-26 09:15] LABS: BASOPHILS % (AUTO) 1 % (0-10); EOSINOPHILS % (AUTO) 2 % (0-10); HEMATOCRIT 33 % (35-52); HEMOGLOBIN 10.7 G/DL (11.5-16.0); LYMPHOCYTES # (AUTO) 0.7 X 10^3 (1.0-4.0); LYMPHOCYTES % (AUTO) 37 % (12-44); MEAN CORPUSCULAR HEMOGLOBIN 29 PG (25-34); MEAN CORPUSCULAR HGB CONC 32 G/DL (32-36); MEAN CORPUSCULAR VOLUME 91 FL (80-99); MEAN PLATELET VOLUME 9.9 FL (7.4-10.4); MONOCYTES # (AUTO) 0.3 X 10^3 (0.0-1.0); MONOCYTES % (AUTO) 17 % (0-12); NEUTROPHILS # (AUTO) 0.8 X 10^3 (1.8-7.8); NEUTROPHILS % (AUTO) 43 % (42-75); PLATELET COUNT 76 10^3/uL (130-400); RED CELL DISTRIBUTION WIDTH 16.5 % (10.0-14.5); WHITE BLOOD COUNT 1.9 10^3/uL (4.3-11.0)
[2018-05-26 09:38] LABS: ALANINE AMINOTRANSFERASE 14 U/L (0-55); ALBUMIN 3.9 GM/DL (3.2-4.5); ALKALINE PHOSPHATASE 86 U/L (40-136); BILIRUBIN,TOTAL 0.3 MG/DL (0.1-1.0); BUN/CREATININE RATIO 16; CALCIUM 8.5 MG/DL (8.5-10.1); CARBON DIOXIDE 25 MMOL/L (21-32); CHLORIDE 109 MMOL/L (98-107); CREATININE SERUM 0.73 MG/DL (0.60-1.30); GFR ESTIMATED > 60; GLUCOSE 69 MG/DL (70-105); POTASSIUM 3.9 MMOL/L (3.6-5.0); SODIUM 141 MMOL/L (135-145); TOTAL PROTEIN 5.9 GM/DL (6.4-8.2)
[2018-06-04 10:22] LABS: BASOPHILS % (AUTO) 1 % (0-10); EOSINOPHILS # (AUTO) 0.1 10^3/uL (0.0-0.3); EOSINOPHILS % (AUTO) 2 % (0-10); HEMATOCRIT 34 % (35-52); HEMOGLOBIN 10.4 G/DL (11.5-16.0); LYMPHOCYTES # (AUTO) 1.5 X 10^3 (1.0-4.0); LYMPHOCYTES % (AUTO) 33 % (12-44); MEAN CORPUSCULAR HEMOGLOBIN 28 PG (25-34); MEAN CORPUSCULAR HGB CONC 31 G/DL (32-36); MEAN CORPUSCULAR VOLUME 91 FL (80-99); MEAN PLATELET VOLUME 9.4 FL (7.4-10.4); MONOCYTES # (AUTO) 0.8 X 10^3 (0.0-1.0); MONOCYTES % (AUTO) 17 % (0-12); NEUTROPHILS # (AUTO) 2.2 X 10^3 (1.8-7.8); NEUTROPHILS % (AUTO) 47 % (42-75); PLATELET COUNT 95 10^3/uL (130-400); RED CELL DISTRIBUTION WIDTH 16.7 % (10.0-14.5); WHITE BLOOD COUNT 4.7 10^3/uL (4.3-11.0)
[2018-06-04 10:42] LABS: ALANINE AMINOTRANSFERASE 10 U/L (0-55); ALKALINE PHOSPHATASE 107 U/L (40-136); BILIRUBIN,TOTAL 0.3 MG/DL (0.1-1.0); BUN/CREATININE RATIO 18; CALCIUM 8.7 MG/DL (8.5-10.1); CARBON DIOXIDE 26 MMOL/L (21-32); CHLORIDE 106 MMOL/L (98-107); CREATININE SERUM 0.73 MG/DL (0.60-1.30); GFR ESTIMATED > 60; GLUCOSE 97 MG/DL (70-105); POTASSIUM 3.9 MMOL/L (3.6-5.0); SODIUM 140 MMOL/L (135-145); TOTAL PROTEIN 6.4 GM/DL (6.4-8.2)
[2018-06-09 09:19] LABS: BASOPHILS % (AUTO) 2 % (0-10); EOSINOPHILS # (AUTO) 0.1 10^3/uL (0.0-0.3); EOSINOPHILS % (AUTO) 3 % (0-10); HEMATOCRIT 32 % (35-52); HEMOGLOBIN 10.4 G/DL (11.5-16.0); LYMPHOCYTES # (AUTO) 0.8 X 10^3 (1.0-4.0); LYMPHOCYTES % (AUTO) 37 % (12-44); MEAN CORPUSCULAR HEMOGLOBIN 29 PG (25-34); MEAN CORPUSCULAR HGB CONC 32 G/DL (32-36); MEAN CORPUSCULAR VOLUME 90 FL (80-99); MEAN PLATELET VOLUME 9.7 FL (7.4-10.4); MONOCYTES # (AUTO) 0.3 X 10^3 (0.0-1.0); MONOCYTES % (AUTO) 13 % (0-12); NEUTROPHILS # (AUTO) 1.1 X 10^3 (1.8-7.8); NEUTROPHILS % (AUTO) 46 % (42-75); PLATELET COUNT 132 10^3/uL (130-400); RED CELL DISTRIBUTION WIDTH 16.4 % (10.0-14.5); WHITE BLOOD COUNT 2.3 10^3/uL (4.3-11.0)
[2018-06-09 09:37] LABS: ALANINE AMINOTRANSFERASE 10 U/L (0-55); ALBUMIN 3.9 GM/DL (3.2-4.5); ALKALINE PHOSPHATASE 88 U/L (40-136); BILIRUBIN,TOTAL 0.3 MG/DL (0.1-1.0); BUN/CREATININE RATIO 19; CALCIUM 8.6 MG/DL (8.5-10.1); CARBON DIOXIDE 24 MMOL/L (21-32); CHLORIDE 107 MMOL/L (98-107); CREATININE SERUM 0.73 MG/DL (0.60-1.30); GFR ESTIMATED > 60; GLUCOSE 109 MG/DL (70-105); POTASSIUM 3.6 MMOL/L (3.6-5.0); SODIUM 139 MMOL/L (135-145); TOTAL PROTEIN 5.7 GM/DL (6.4-8.2)
[2018-06-16 10:06] LABS: BASOPHILS # (AUTO) 0.1 10^3/uL (0.0-0.1); BASOPHILS % (AUTO) 2 % (0-10); EOSINOPHILS % (AUTO) 0 % (0-10); HEMATOCRIT 36 % (35-52); HEMOGLOBIN 11.4 G/DL (11.5-16.0); LYMPHOCYTES # (AUTO) 1.5 X 10^3 (1.0-4.0); LYMPHOCYTES % (AUTO) 26 % (12-44); MEAN CORPUSCULAR HEMOGLOBIN 28 PG (25-34); MEAN CORPUSCULAR HGB CONC 31 G/DL (32-36); MEAN CORPUSCULAR VOLUME 91 FL (80-99); MEAN PLATELET VOLUME 9.9 FL (7.4-10.4); MONOCYTES # (AUTO) 0.7 X 10^3 (0.0-1.0); MONOCYTES % (AUTO) 11 % (0-12); NEUTROPHILS # (AUTO) 3.5 X 10^3 (1.8-7.8); NEUTROPHILS % (AUTO) 60 % (42-75); PLATELET COUNT 207 10^3/uL (130-400); RED CELL DISTRIBUTION WIDTH 16.7 % (10.0-14.5); WHITE BLOOD COUNT 5.8 10^3/uL (4.3-11.0)
[2018-06-16 10:37] LABS: ALANINE AMINOTRANSFERASE 12 U/L (0-55); ALBUMIN 4.1 GM/DL (3.2-4.5); ALKALINE PHOSPHATASE 115 U/L (40-136); BILIRUBIN,TOTAL 0.4 MG/DL (0.1-1.0); BUN/CREATININE RATIO 17; CALCIUM 8.8 MG/DL (8.5-10.1); CARBON DIOXIDE 24 MMOL/L (21-32); CHLORIDE 106 MMOL/L (98-107); CREATININE SERUM 0.72 MG/DL (0.60-1.30); GFR ESTIMATED > 60; GLUCOSE 100 MG/DL (70-105); POTASSIUM 4.1 MMOL/L (3.6-5.0); SODIUM 141 MMOL/L (135-145); TOTAL PROTEIN 6.5 GM/DL (6.4-8.2)
[2018-06-23 09:01] LABS: BASOPHILS % (AUTO) 1 % (0-10); EOSINOPHILS # (AUTO) 0.1 10^3/uL (0.0-0.3); EOSINOPHILS % (AUTO) 3 % (0-10); HEMATOCRIT 32 % (35-52); HEMOGLOBIN 10.4 G/DL (11.5-16.0); LYMPHOCYTES # (AUTO) 0.9 X 10^3 (1.0-4.0); LYMPHOCYTES % (AUTO) 37 % (12-44); MEAN CORPUSCULAR HEMOGLOBIN 29 PG (25-34); MEAN CORPUSCULAR HGB CONC 32 G/DL (32-36); MEAN CORPUSCULAR VOLUME 91 FL (80-99); MEAN PLATELET VOLUME 11.1 FL (7.4-10.4); MONOCYTES # (AUTO) 0.3 X 10^3 (0.0-1.0); MONOCYTES % (AUTO) 11 % (0-12); NEUTROPHILS # (AUTO) 1.1 X 10^3 (1.8-7.8); NEUTROPHILS % (AUTO) 47 % (42-75); PLATELET COUNT 81 10^3/uL (130-400); RED CELL DISTRIBUTION WIDTH 16.6 % (10.0-14.5); WHITE BLOOD COUNT 2.3 10^3/uL (4.3-11.0)
[2018-06-23 09:22] LABS: BUN/CREATININE RATIO 10; CALCIUM 8.4 MG/DL (8.5-10.1); CARBON DIOXIDE 22 MMOL/L (21-32); CHLORIDE 108 MMOL/L (98-107); GFR ESTIMATED > 60; GLUCOSE 117 MG/DL (70-105); POTASSIUM 3.7 MMOL/L (3.6-5.0); SODIUM 141 MMOL/L (135-145)
[2018-06-30 13:32] LABS: BASOPHILS # (AUTO) 0.2 10^3/uL (0.0-0.1); BASOPHILS % (AUTO) 3 % (0-10); EOSINOPHILS % (AUTO) 0 % (0-10); HEMATOCRIT 36 % (35-52); HEMOGLOBIN 11.4 G/DL (11.5-16.0); LYMPHOCYTES # (AUTO) 1.7 X 10^3 (1.0-4.0); LYMPHOCYTES % (AUTO) 24 % (12-44); MEAN CORPUSCULAR HEMOGLOBIN 29 PG (25-34); MEAN CORPUSCULAR HGB CONC 32 G/DL (32-36); MEAN CORPUSCULAR VOLUME 91 FL (80-99); MONOCYTES # (AUTO) 0.9 X 10^3 (0.0-1.0); MONOCYTES % (AUTO) 13 % (0-12); NEUTROPHILS # (AUTO) 4.1 X 10^3 (1.8-7.8); NEUTROPHILS % (AUTO) 61 % (42-75); PLATELET COUNT 160 10^3/uL (130-400); RED CELL DISTRIBUTION WIDTH 16.8 % (10.0-14.5); WHITE BLOOD COUNT 6.9 10^3/uL (4.3-11.0)
[2018-06-30 13:47] LABS: BUN/CREATININE RATIO 11; CALCIUM 8.8 MG/DL (8.5-10.1); CARBON DIOXIDE 25 MMOL/L (21-32); CHLORIDE 106 MMOL/L (98-107); GFR ESTIMATED > 60; GLUCOSE 105 MG/DL (70-105); SODIUM 141 MMOL/L (135-145)
[2018-07-07 09:15] LABS: BASOPHILS % (AUTO) 2 % (0-10); EOSINOPHILS # (AUTO) 0.1 10^3/uL (0.0-0.3); EOSINOPHILS % (AUTO) 3 % (0-10); HEMATOCRIT 32 % (35-52); HEMOGLOBIN 10.1 G/DL (11.5-16.0); LYMPHOCYTES # (AUTO) 0.9 X 10^3 (1.0-4.0); LYMPHOCYTES % (AUTO) 48 % (12-44); MEAN CORPUSCULAR HEMOGLOBIN 29 PG (25-34); MEAN CORPUSCULAR HGB CONC 32 G/DL (32-36); MEAN CORPUSCULAR VOLUME 92 FL (80-99); MONOCYTES # (AUTO) 0.3 X 10^3 (0.0-1.0); MONOCYTES % (AUTO) 14 % (0-12); NEUTROPHILS # (AUTO) 0.6 X 10^3 (1.8-7.8); NEUTROPHILS % (AUTO) 34 % (42-75); PLATELET COUNT 104 10^3/uL (130-400); RED CELL DISTRIBUTION WIDTH 16.9 % (10.0-14.5); WHITE BLOOD COUNT 1.9 10^3/uL (4.3-11.0)
[2018-07-07 09:34] LABS: ALANINE AMINOTRANSFERASE 12 U/L (0-55); ALBUMIN 3.9 GM/DL (3.2-4.5); ALKALINE PHOSPHATASE 82 U/L (40-136); BILIRUBIN,TOTAL 0.3 MG/DL (0.1-1.0); BUN/CREATININE RATIO 13; CALCIUM 8.9 MG/DL (8.5-10.1); CARBON DIOXIDE 25 MMOL/L (21-32); CHLORIDE 108 MMOL/L (98-107); CREATININE SERUM 0.76 MG/DL (0.60-1.30); GFR ESTIMATED > 60; GLUCOSE 103 MG/DL (70-105); POTASSIUM 3.8 MMOL/L (3.6-5.0); SODIUM 141 MMOL/L (135-145); TOTAL PROTEIN 5.9 GM/DL (6.4-8.2)
[2018-07-14 12:00] LABS: BASOPHILS # (AUTO) 0.1 10^3/uL (0.0-0.1); BASOPHILS % (AUTO) 1 % (0-10); EOSINOPHILS % (AUTO) 0 % (0-10); HEMATOCRIT 36 % (35-52); HEMOGLOBIN 11.8 G/DL (11.5-16.0); LYMPHOCYTES # (AUTO) 1.1 X 10^3 (1.0-4.0); LYMPHOCYTES % (AUTO) 17 % (12-44); MEAN CORPUSCULAR HEMOGLOBIN 29 PG (25-34); MEAN CORPUSCULAR HGB CONC 33 G/DL (32-36); MEAN CORPUSCULAR VOLUME 90 FL (80-99); MEAN PLATELET VOLUME 9.9 FL (7.4-10.4); MONOCYTES # (AUTO) 0.7 X 10^3 (0.0-1.0); MONOCYTES % (AUTO) 10 % (0-12); NEUTROPHILS # (AUTO) 4.5 X 10^3 (1.8-7.8); NEUTROPHILS % (AUTO) 71 % (42-75); PLATELET COUNT 176 10^3/uL (130-400); RED CELL DISTRIBUTION WIDTH 16.8 % (10.0-14.5); WHITE BLOOD COUNT 6.3 10^3/uL (4.3-11.0)
[2018-07-14 12:19] LABS: BUN/CREATININE RATIO 16; CALCIUM 9.4 MG/DL (8.5-10.1); CARBON DIOXIDE 25 MMOL/L (21-32); CHLORIDE 103 MMOL/L (98-107); CREATININE SERUM 0.81 MG/DL (0.60-1.30); GFR ESTIMATED > 60; GLUCOSE 136 MG/DL (70-105); POTASSIUM 4.1 MMOL/L (3.6-5.0); SODIUM 138 MMOL/L (135-145)
[2018-07-28 15:32] LABS: BASOPHILS % (AUTO) 0 % (0-10); EOSINOPHILS # (AUTO) 0.1 10^3/uL (0.0-0.3); EOSINOPHILS % (AUTO) 2 % (0-10); HEMATOCRIT 36 % (35-52); HEMOGLOBIN 11.2 G/DL (11.5-16.0); LYMPHOCYTES # (AUTO) 1.1 X 10^3 (1.0-4.0); LYMPHOCYTES % (AUTO) 37 % (12-44); MEAN CORPUSCULAR HEMOGLOBIN 29 PG (25-34); MEAN CORPUSCULAR HGB CONC 31 G/DL (32-36); MEAN CORPUSCULAR VOLUME 91 FL (80-99); MEAN PLATELET VOLUME 9.7 FL (7.4-10.4); MONOCYTES # (AUTO) 0.4 X 10^3 (0.0-1.0); MONOCYTES % (AUTO) 13 % (0-12); NEUTROPHILS # (AUTO) 1.4 X 10^3 (1.8-7.8); NEUTROPHILS % (AUTO) 48 % (42-75); PLATELET COUNT 212 10^3/uL (130-400); RED CELL DISTRIBUTION WIDTH 16.2 % (10.0-14.5); WHITE BLOOD COUNT 2.9 10^3/uL (4.3-11.0)
[2018-07-28 15:33] LABS: BILIRUBIN,URINE NEGATIVE (NEGATIVE); CLARITY,URINE SLIGHTLY CLOUDY; COLOR,URINE YELLOW; GLUCOSE, URINE (UA) NEGATIVE (NEGATIVE); KETONES,URINE NEGATIVE (NEGATIVE); LEUKOCYTE ESTERASE ,URINE 1+ (NEGATIVE); NITRITE,URINE NEGATIVE (NEGATIVE); PH,URINE 6 (5-9); PROTEIN,URINE NEGATIVE (NEGATIVE); UROBILINOGEN,URINE NORMAL (NORMAL)
[2018-07-28 15:51] LABS: BUN/CREATININE RATIO 14; CALCIUM 8.6 MG/DL (8.5-10.1); CARBON DIOXIDE 25 MMOL/L (21-32); CHLORIDE 110 MMOL/L (98-107); CREATININE SERUM 0.73 MG/DL (0.60-1.30); GFR ESTIMATED > 60; GLUCOSE 125 MG/DL (70-105); POTASSIUM 3.8 MMOL/L (3.6-5.0); SODIUM 144 MMOL/L (135-145)
[2018-07-28 15:52] LABS: BACTERIA,URINE NEGATIVE /HPF; RBC,URINE RARE /HPF; WBC,URINE 0-2 /HPF
[2018-08-03 13:09] LABS: BASOPHILS % (AUTO) 1 % (0-10); EOSINOPHILS # (AUTO) 0.1 10^3/uL (0.0-0.3); EOSINOPHILS % (AUTO) 2 % (0-10); HEMATOCRIT 34 % (35-52); LYMPHOCYTES # (AUTO) 0.7 X 10^3 (1.0-4.0); LYMPHOCYTES % (AUTO) 32 % (12-44); MEAN CORPUSCULAR HEMOGLOBIN 29 PG (25-34); MEAN CORPUSCULAR HGB CONC 32 G/DL (32-36); MEAN CORPUSCULAR VOLUME 90 FL (80-99); MEAN PLATELET VOLUME 10.3 FL (7.4-10.4); MONOCYTES # (AUTO) 0.5 X 10^3 (0.0-1.0); MONOCYTES % (AUTO) 20 % (0-12); NEUTROPHILS % (AUTO) 45 % (42-75); PLATELET COUNT 136 10^3/uL (130-400); RED CELL DISTRIBUTION WIDTH 15.7 % (10.0-14.5); WHITE BLOOD COUNT 2.2 10^3/uL (4.3-11.0)
[2018-08-03 13:24] LABS: ALANINE AMINOTRANSFERASE 16 U/L (0-55); ALKALINE PHOSPHATASE 94 U/L (40-136); BILIRUBIN,TOTAL 0.4 MG/DL (0.1-1.0); BUN/CREATININE RATIO 12; CALCIUM 8.7 MG/DL (8.5-10.1); CARBON DIOXIDE 23 MMOL/L (21-32); CHLORIDE 107 MMOL/L (98-107); CREATININE SERUM 0.75 MG/DL (0.60-1.30); GFR ESTIMATED > 60; GLUCOSE 107 MG/DL (70-105); POTASSIUM 3.5 MMOL/L (3.6-5.0); SODIUM 139 MMOL/L (135-145); TOTAL PROTEIN 6.3 GM/DL (6.4-8.2)
[2018-08-10 11:42] LABS: BASOPHILS % (AUTO) 0 % (0-10); EOSINOPHILS % (AUTO) 0 % (0-10); HEMATOCRIT 37 % (35-52); LYMPHOCYTES # (AUTO) 1.1 X 10^3 (1.0-4.0); LYMPHOCYTES % (AUTO) 15 % (12-44); MEAN CORPUSCULAR HEMOGLOBIN 29 PG (25-34); MEAN CORPUSCULAR HGB CONC 32 G/DL (32-36); MEAN CORPUSCULAR VOLUME 88 FL (80-99); MONOCYTES # (AUTO) 0.9 X 10^3 (0.0-1.0); MONOCYTES % (AUTO) 12 % (0-12); NEUTROPHILS # (AUTO) 5.3 X 10^3 (1.8-7.8); NEUTROPHILS % (AUTO) 73 % (42-75); PLATELET COUNT 128 10^3/uL (130-400); RED CELL DISTRIBUTION WIDTH 15.8 % (10.0-14.5); WHITE BLOOD COUNT 7.2 10^3/uL (4.3-11.0)
[2018-08-10 12:07] LABS: BUN/CREATININE RATIO 10; CALCIUM 9.1 MG/DL (8.5-10.1); CARBON DIOXIDE 26 MMOL/L (21-32); CHLORIDE 106 MMOL/L (98-107); GFR ESTIMATED > 60; GLUCOSE 100 MG/DL (70-105); POTASSIUM 3.8 MMOL/L (3.6-5.0); SODIUM 143 MMOL/L (135-145)
[~2018-08-17] VITALS: Ht 151.1 cm; Wt 51.7 kg
[~2018-08-17 09:20] MED LIST changes: -CATHETER FLUSH 10 ML SYR IV PRN; +CTR IV SCH; +FILGRASTIM 480 MCG/1.6 ML VIAL CANCER CENTER SQ SCH; +FOSAPREPITANT DIMEGLUMINE 150 MG in NS (IVPB) CANCER CENTER ONLY 150 ML IV SCH; +GEMCITABINE HCL (GENERIC) 1,000 MG, GEMCITABINE HCL (GENERIC) 100 MG in NS (IVPB) CANCE... IV SCH; -HOLD METFORMIN - RECEIVED CONTRAST 20 ML VIAL IV SCH; -IOHEXOL 350 MG/ML 100 ML (OMNIPAQUE 350) VIAL IV ONE; +NS IV 1000 ML (CANCER CTR) 1,000 ML ONE; +NS IV 500 ML (CANCER CENTER) IV SCH; +PACLITAXEL PROTEIN IV SCH; +PALONOSETRON HCL 0.25 MG, DEXAMETHASONE INJECTION 10 MG in NS (IVPB) CANCER CENTER 50 ML IV SCH; +fentaNYL INJ 100 MCG/2 ML (CANCER CENTER) IV SCH
== END 2018-08-18 | disposition home or self-care (01) ==
LOC: ONC 09:20
PROVIDERS: ATTEND Internal Medicine Hematology & Oncology
DX: Z51.11 Encounter for antineoplastic chemotherapy (principal); C25.1 Malignant neoplasm of body of pancreas; C78.7 Secondary malignant neoplasm of liver and intrahepatic bile duct; D70.1 Agranulocytosis secondary to cancer chemotherapy; T45.1X5A Adverse effect of antineoplastic and immunosuppressive drugs, initial encounter; E03.9 Hypothyroidism, unspecified; F32.9 Major depressive disorder, single episode, unspecified; Z79.899 Other long term (current) drug therapy
CPT/HCPCS: 36415; 80048; 80053; 81000; 84443; 85025; 86301; 96360; 96361; 96367; 96372; 96374; 96375; 96376; 96413; 96417

== ENCOUNTER → 2018-09-30 | Outpatient (CLI) | payer BC ==
[~2018-09-30] MED LIST changes: -CTR IV SCH; -FILGRASTIM 480 MCG/1.6 ML VIAL CANCER CENTER SQ SCH; -FOSAPREPITANT DIMEGLUMINE 150 MG in NS (IVPB) CANCER CENTER ONLY 150 ML IV SCH; -GEMCITABINE HCL (GENERIC) 1,000 MG, GEMCITABINE HCL (GENERIC) 100 MG in NS (IVPB) CANCE... IV SCH; +HOLD METFORMIN - RECEIVED CONTRAST 20 ML VIAL IV SCH; +IOHEXOL 350 MG/ML 100 ML (OMNIPAQUE 350) VIAL IV ONE; -NS IV 1000 ML (CANCER CTR) 1,000 ML ONE; -NS IV 500 ML (CANCER CENTER) IV SCH; -PACLITAXEL PROTEIN IV SCH; -PALONOSETRON HCL 0.25 MG, DEXAMETHASONE INJECTION 10 MG in NS (IVPB) CANCER CENTER 50 ML IV SCH; -fentaNYL INJ 100 MCG/2 ML (CANCER CENTER) IV SCH
--- NOTE | 2018-09-30 13:46 | Diagnostic Imaging Report ---
PROCEDURE: CT chest with contrast, CT abdomen and pelvis with and without contrast. TECHNIQUE: Pre and post intravenous contrast axial imaging of the abdomen and pelvis and post contrast axial imaging of the chest were performed. Auto Exposure Controls were utilized during the CT exam to meet ALARA standards for radiation dose reduction. INDICATION: Pancreatic carcinoma, followup. Patient complains of abdominal pain and back pain. COMPARISON: Comparison is made with prior CT from 08/10/2018. CT CHEST: A left chest wall port has its tip extending into the right atrium. No axillary lymphadenopathy is detected. No definite mediastinal or hilar lymphadenopathy is identified. No pericardial or pleural fluid is seen. Parenchymal evaluation does show some linear opacities in the right middle lobe, lingula and bilateral lower lobes suggestive of atelectasis or scarring. There is a small nodular density in the right lower lobe measuring 5 mm, image 62, not well seen on prior exam. Vague subpleural nodule in the posterior right lower lobe is noted measuring 4 mm image #77. The left lung is clear. IMPRESSION: 1. No evidence of thoracic lymphadenopathy. There are two small nodules in the right lower lobe which were not definitely seen on prior study. These are indeterminate. Continued followup is recommended. CT ABDOMEN AND PELVIS: Hepatic low densities in the right lobe is stable and suggestive of a cyst. Low density in the left lobe measures 9 mm and not well-seen on prior exam and may be new. There appears to be more prominent intrahepatic bile ducts when compared with prior imaging. Low-density mass in the region of the pancreatic body shows continued increase in size, now measuring approximately 2.7 x 2.3 cm compared with 1.8 x 1.4 cm on prior. Numerous collateral vessels in the iron hepatis consistent with cavernous transformation. Spleen is unremarkable. No adrenal mass is seen. Kidneys are unremarkable. Aorta is nonaneurysmal. There has been development of moderate abdominal ascites since prior study. Bowel loops are normal in caliber. No definite central retroperitoneal lymphadenopathy is seen. The visualized long segment of wall thickening of the distal colon is not appreciated on today's study. There is some free fluid in the pelvis. Bladder is decompressed. No definite pelvic lymphadenopathy is seen. IMPRESSION: 1. Enlarging pancreatic body mass when compared with study from 08/10/2018. There has been development of intrahepatic biliary ductal dilatation. There has also been development of moderate abdominopelvic ascites. There is an indeterminate low-density lesion in the left lobe of the liver on today's study not well seen on prior imaging. Dictated by: Dictated on workstation # [id number]
== END ==
LOC: RAD 12:00
PROVIDERS: ATTEND Internal Medicine Hematology & Oncology
DX: C25.1 Malignant neoplasm of body of pancreas (principal); C79.82 Secondary malignant neoplasm of genital organs; R91.8 Other nonspecific abnormal finding of lung field; K83.8 Other specified diseases of biliary tract; R18.8 Other ascites; K76.9 Liver disease, unspecified
CPT/HCPCS: 71260; 74178

== ENCOUNTER → 2018-10-05 | Outpatient (CLI) | payer BC ==
[~2018-10-05] VITALS: Ht 151.1 cm; Wt 50.8 kg
[~2018-10-05] MED LIST changes: -HOLD METFORMIN - RECEIVED CONTRAST 20 ML VIAL IV SCH; -IOHEXOL 350 MG/ML 100 ML (OMNIPAQUE 350) VIAL IV ONE; +LIDOCAINE 1% INJ 20 ML 20 ML VIAL INJ ONE; +LIDOCAINE 1% INJ 20 ML 20 ML VIAL ONE
--- NOTE | 2018-10-05 11:54 | NUR ---
PATIENT ARRIVED AT 1120 TO [facility] [place] [facility], CONSENT OBTAINED AND VITAL SIGNS 97.7, 16, 5, 65, 91% ON ROOM AIR, 138/86. PATIENT RESTING COMFORTABLY ON CART. PATIENT LEFT FLOOR WITH CEFERINO TRUONG AT 1156. PATIENT TO LEAVE FROM RADIOLOGY.
--- NOTE | 2018-10-05 13:33 | Diagnostic Imaging Report ---
INDICATION: Pancreatic carcinoma. TECHNIQUE: Sonographic guidance was provided for Dr. Ma for paracentesis. A catheter was placed into the left lower quadrant by Dr. Ma. IMPRESSION: Sonographic guidance for Dr. Ma for paracentesis. Dictated by: Dictated on workstation # [id number]
--- NOTE | 2018-10-06 21:45 | OPERATIVE REPORT ---
DATE OF SERVICE: 10/05/2018 PREOPERATIVE DIAGNOSIS: Symptomatic ascites. POSTOPERATIVE DIAGNOSIS: Symptomatic ascites. PROCEDURE: Ultrasound-guided paracentesis. SURGEON: Dale Ma DO ANESTHESIA: 1% lidocaine, 5 mL. COMPLICATIONS: None. INDICATIONS: The patient is a 58-year-old female with pancreatic cancer. She has developed a significant amount of ascites, which is causing her pain and discomfort. She understands risks and benefits of procedure and wished to proceed with procedure. Consent was signed in the chart. DESCRIPTION OF PROCEDURE: The patient was taken to the procedure room. She was prepped and draped in sterile fashion. Ultrasound was used to isolate the best spot for insertion of the catheter. The local anesthetic was used to infiltrate the area. A #11 blade scalpel was used to make a skin incision and catheter and needle were inserted through the abdominal wall in the area that was best located by ultrasound until straw colored fluid was returned and the catheter was advanced. A total of 2500 mL of straw colored fluid was removed. Once the fluid was removed, the catheter was then slowly removed. The patient tolerated procedure well without any complications. She was discharged home. Fluid was sent for cytology. Job ID: [id number] DocumentID: [id number] Dictated Date: 10/06/2018 14:06:26 Theoretical Physics Teacher Date: 10/06/2018 21:45:35 Dictated By: DALE MA DO
== END ==
LOC: SDC 11:11
PROVIDERS: ATTEND Surgery
DX: C25.9 Malignant neoplasm of pancreas, unspecified (principal)
CPT/HCPCS: 49083

== ENCOUNTER 2018-10-07 18:40 | Emergency (ER) | payer BC ==
[~2018-10-07] VITALS: Ht 149.9 cm; Wt 49.4 kg
[~2018-10-07 18:40] MED LIST changes: -LIDOCAINE 1% INJ 20 ML 20 ML VIAL INJ ONE; -LIDOCAINE 1% INJ 20 ML 20 ML VIAL ONE
[2018-10-07] MEDS ORDERED: LACTATED RINGERS 1,000 ML IV ONE (20:21)
[2018-10-07] MEDS ORDERED: fentaNYL INJECTION 100 MCG/2 ML AMP IVP STA (20:21)
--- NOTE | 2018-10-07 20:23 | ED General ---
General Chief Complaint: General Problems/Pain Stated Complaint: BACK AND ABD PAIN;CANCER PT Nursing Triage Note: PT REPORTS HAVING PARACENTESIS ON FRIDAY AND HAVING TO STOP HER HYDROCODONES AND WAS STARTED ON OXYCODONE. PT REPORTS SEVERE PAIN SINCE FRIDAY AFTER PROCEDURE. Nursing Sepsis Screen: No Definite Risk Source of Information: Patient History of Present Illness Date Seen by Provider: October 07, 2018 Time Seen by Provider: 20:18 Initial Comments PT ARRIVES VIA POV HOSPITAL IS CURRENTLY UNDER TORNADO WARNING AND ALL PT'S TAKEN DIRECTLY TO [facility] AREA OF HOSPITAL, UNTIL ALL CLEAR GIVEN AT 2018 PT HAS TERMINAL/METASTATIC PANCREATIC CANCER WITH CHRONIC ABDOMINAL AND BACK PAIN HAS BEEN ON HYDROCODONE AND FENTANYL PATCH--TOTAL OF 100 MCG-- FOR PAIN PT HAD PARACENTESIS ON Friday10/05/[address] AMBROSE ( FIRST TIME SHE HAS HAD PARACENTESIS ) AND HYDROCODONE WAS SWITCHED TO OXYCODONE. PT HAS BEEN TAKING 20 MG EVERY 3-4 HOURS WITHOUT RELIEF OF PAIN PT HAS ALREADY "FILLED UP AGAIN" IN ABDOMEN ALSO HAVING PAIN OVER PARACENTESIS SITE, BUT NO REDNESS OR DRAINAGE FROM SITE. PT HAS ONGOING NAUSEA, AND IS NO DIFFERENT TODAY. NO VOMITING PT IS KEEPING LIQUIDS DOWN, AND URINATING A NORMAL AMOUNT PT HAD FEVER OF 100.5 RIGHT AFTER PARACENTESIS, WHILE IN HOSPITAL. TEMP RESOLVED ON IT'S OWN AND HAS NOT HAD FEVER SINCE LAST CHEMO WAS 6 WEEKS AGO, THEN HAD 16 RADIATION TREATMENTS--LAST ONE WAS 09/05/18 PT IS TO HAVE A NERVE BLOCK TO HER PANCREAS DONE BY DR. ARMENDARIZ--FOR PAIN CONTROL, BUT IS NOT SCHEDULED YET. PCP: DR. DEAN ONCOLOGIST; DR. SWANSON--LAST SEEN ON Friday10/05/18, AND SENT TO DR. AMBROSE FOR PARACENTESIS THAT DAY. NEXT APPOINTMENT IS 10/14/18 Allergies and Home Medications Allergies Coded Allergies: oxaliplatin (Unverified Allergy, Severe, 12/13/16) bisacodyl (Verified Allergy, Unknown, HIVES, 12/05/16) Uncoded Allergies: SENOK (Allergy, Unknown, 12/09/16) Home Medications Escitalopram Oxalate 10 Mg Tablet, 10 MG PO DAILY, (Reported) Estradiol 0.5 Mg Tablet, 0.5 MG PO HS, (Reported) Fentanyl 1 Each Patch.td72, 25 MCG TD Q72H, (Reported) Hydrocodone Bit/Acetaminophen 1 Each Tablet, 1-2 EACH PO Q4H PRN for PAIN, (Reported) Levothyroxine Sodium 88 Mcg Tablet, 88 MCG PO DAILY, (Reported) Nebivolol HCl 5 Mg Tablet, 5 MG PO DAILY, (Reported) Patient Home Medication List Home Medication List Reviewed: Yes Review of Systems Review of Systems Constitutional: see HPI Respiratory: no symptoms reported; No short of breath Cardiovascular: no symptoms reported Gastrointestinal: see HPI, abdominal pain; No diarrhea; loss of appetite (CHRON IC ), nausea Genitourinary: no symptoms reported Musculoskeletal: see HPI, back pain Skin: no symptoms reported Psychiatric/Neurological: No Symptoms Reported Hematologic/Lymphatic: See HPI Immunological/Allergic: see HPI Past Lnsiqyb-Giptba-Gupzoa Hx Patient Social History Recent Foreign Travel: No Contact w/Someone Who Travel: No Recent Infectious Disease Expo: No Recent Hopitalizations: No Immunizations Up To Date Date of Pneumonia Vaccine: Mar 09, 2012 Date of Influenza Vaccine: Feb 16, 2013 Seasonal Allergies Seasonal Allergies: No Past Medical History Hysterectomy, Tonsillectomy, Tubal Ligation Palpitations Hypothyroidsim Skin, Pancreatic Depression Physical Exam Vital Signs Vital Signs - First Documented 10/07/18 20:13 Temp 98.2 Pulse 68 Resp 14 B/P (MAP) 129/71 (90) Pulse Ox 96 Capillary Refill : Less Than 3 Seconds Height, Weight, BMI Height: 4'11.00" Weight: 109lbs. 0.0oz. 49.471756du; 22.2 BMI Method:Stated General Appearance: No Apparent Distress, Thin HEENT: PERRL/EOMI Respiratory: Normal Breath Sounds, No Accessory Muscle Use, No Respiratory Distress Cardiovascular: Regular Rate, Rhythm, No Edema, No Murmur Gastrointestinal: Distended (BUT RELATIVELY SOFT--ASCITES PRESENT) Rectal: Tenderness (DIFFUSE TENDERNESS; PARACENTESIS SITE TO LEFT MID ABDOMEN IS SCABBED WITHOUT SIGNS OF INFECTION. ) Back: Other (DIFFUSE MID AND LOWER BACK TENDERNESS--LEFT > RIGHT) Extremity: No Pedal Edema Neurologic/Psychiatric: Alert, Oriented x3, No Motor/Sensory Deficits, Normal Mood/Affect, domestic violence counselor II-XII Norm as Tested Skin: Warm/Dry, Pallor Progress/Results/Core Measures Suspected Sepsis Recent Fever Within 48 Hours: No Infection Criteria Present: None New/Unexplained Altered Menta: No Sepsis Screen: No Definite Risk SIRS Temperature:98.2 Pulse: 68 Respiratory Rate: 14 Laboratory Tests 10/07/18 20:35: White Blood Count 5.2 Blood Pressure 129 /71 Mean: 90 Laboratory Tests 10/07/18 20:35: Creatinine 0.69, Platelet Count 172 Results/Orders Lab Results Laboratory Tests Test 10/07/18 20:35 Range/Units White Blood Count 5.2 4.3-11.0 10^3/uL Red Blood Count 4.55 4.35-5.85 10^6/uL Hemoglobin 13.0 11.5-16.0 G/DL Hematocrit 40 35-52 % Mean Corpuscular Volume 87 80-99 FL Mean Corpuscular Hemoglobin 29 25-34 PG Mean Corpuscular Hemoglobin Concent 33 32-36 G/DL Red Cell Distribution Width 17.3 H 10.0-14.5 % Platelet Count 172 130-400 10^3/uL Mean Platelet Volume 10.3 7.4-10.4 FL Neutrophils (%) (Auto) 82 H 42-75 % Lymphocytes (%) (Auto) 9 L 12-44 % Monocytes (%) (Auto) 9 0-12 % Eosinophils (%) (Auto) 0 0-10 % Basophils (%) (Auto) 0 0-10 % Neutrophils # (Auto) 4.3 1.8-7.8 X 10^3 Lymphocytes # (Auto) 0.5 L 1.0-4.0 X 10^3 Monocytes # (Auto) 0.5 0.0-1.0 X 10^3 Eosinophils # (Auto) 0.0 0.0-0.3 10^3/uL Basophils # (Auto) 0.0 0.0-0.1 10^3/uL Sodium Level 140 135-145 MMOL/L Potassium Level 3.6 3.6-5.0 MMOL/L Chloride Level 104 98-107 MMOL/L Carbon Dioxide Level 22 21-32 MMOL/L Anion Gap 14 5-14 MMOL/L Blood Urea Nitrogen 7 7-18 MG/DL Creatinine 0.69 0.60-1.30 MG/DL Estimat Glomerular Filtration Rate > 60 BUN/Creatinine Ratio 10 Glucose Level 124 H 70-105 MG/DL Calcium Level 8.9 8.5-10.1 MG/DL My Orders Orders - KARAN GRIER DO Ed Iv/Invasive Line Start (5/22/19 20:21) Basic Metabolic Panel (10/07/18 20:21) Cbc With Automated Diff (10/07/18 20:21) Ed Iv/Invasive Line Start (10/07/18 20:21) Lactated Ringers (Lr 1000 Ml Iv Solution (10/07/18 20:21) Fentanyl Injection (Sublimaze Injection (10/07/18 20:21) Fentanyl Patch (Duragesic Patch) (10/07/18 21:30) Medications Given in ED Current Medications Medications Dose Ordered Sig/Lenny Route Start Time Stop Time Status Last Admin Dose Admin Lactated Ringer's 1,000 ml @ 0 mls/hr Q0M ONCE IV 10/07/18 20:21 10/07/18 20:23 DC 10/07/18 20:44 1,000 MLS/HR Vital Signs/I&O 10/07/18 20:13 Temp 98.2 Pulse 68 Resp 14 B/P (MAP) 129/71 (90) Pulse Ox 96 Capillary Refill : Less Than 3 Seconds Blood Pressure Mean: 90 Progress Note : Progress Note SIGNIFICANT IMPROVEMENT WITH FENTANYL 50 MCG WILL ADD ADDITIONAL DOSE OF 50 MCG FENTANYL PATCH FOR TONIGHT, AND PT TO FOLLOW UP WITH DR. SWANSON TOMORROW FOR FURTHER PAIN MANAGEMENT. Departure Impression Primary Impression: Pain of metastatic malignancy Disposition: HOME, SELF-CARE Condition: Improved Departure-Patient Inst. Referrals: SHER DEAN MD (PCP/Family) Primary Care Physician JT SWANSON Patient Instructions: Cancer Pain Syndromes (DC) Add. Discharge Instructions: CALL DR. SWANSON'S OFFICE IN THE MORNING FOR FURTHER CARE AND PAIN MANAGEMENT RETURN TO ER IF WORSE All discharge instructions reviewed with patient and/or family. Voiced understanding. KARAN GRIER DO October 07, 2018 20:23
[2018-10-07 20:49] LABS: BASOPHILS % (AUTO) 0 % (0-10); EOSINOPHILS % (AUTO) 0 % (0-10); HEMATOCRIT 40 % (35-52); LYMPHOCYTES # (AUTO) 0.5 X 10^3 (1.0-4.0); LYMPHOCYTES % (AUTO) 9 % (12-44); MEAN CORPUSCULAR HEMOGLOBIN 29 PG (25-34); MEAN CORPUSCULAR HGB CONC 33 G/DL (32-36); MEAN CORPUSCULAR VOLUME 87 FL (80-99); MEAN PLATELET VOLUME 10.3 FL (7.4-10.4); MONOCYTES # (AUTO) 0.5 X 10^3 (0.0-1.0); MONOCYTES % (AUTO) 9 % (0-12); NEUTROPHILS # (AUTO) 4.3 X 10^3 (1.8-7.8); NEUTROPHILS % (AUTO) 82 % (42-75); PLATELET COUNT 172 10^3/uL (130-400); RED CELL DISTRIBUTION WIDTH 17.3 % (10.0-14.5); WHITE BLOOD COUNT 5.2 10^3/uL (4.3-11.0)
[2018-10-07 21:04] LABS: CARBON DIOXIDE 22 MMOL/L (21-32); CHLORIDE 104 MMOL/L (98-107); CREATININE SERUM 0.69 MG/DL (0.60-1.30); POTASSIUM 3.6 MMOL/L (3.6-5.0); SODIUM 140 MMOL/L (135-145)
[2018-10-07 21:05] LABS: BUN/CREATININE RATIO 10; CALCIUM 8.9 MG/DL (8.5-10.1); GFR ESTIMATED > 60; GLUCOSE 124 MG/DL (70-105)
[2018-10-07] MEDS ORDERED: fentaNYL PATCH 50 MCG (DURAGESIC) TD SCH (21:30)
[2018-10-07 21:50] VITALS: BP 105/82
== END 2018-10-07 21:50 | disposition home or self-care (01) ==
LOC: EDUNIT# 18:40 → ER 18:55
DX: G89.3 Neoplasm related pain (acute) (chronic) (principal); C80.1 Malignant (primary) neoplasm, unspecified; C78.89 Secondary malignant neoplasm of other digestive organs; E03.9 Hypothyroidism, unspecified; F32.9 Major depressive disorder, single episode, unspecified; Z88.8 Allergy status to other drugs, medicaments and biological substances; Z90.710 Acquired absence of both cervix and uterus; Z90.89 Acquired absence of other organs; Z98.51 Tubal ligation status
CPT/HCPCS: 36415; 80048; 85025; 99284

== ENCOUNTER → 2018-10-23 | Outpatient (CLI) | payer BC ==
[~2018-10-23] VITALS: Ht 149.9 cm; Wt 49.4 kg
--- NOTE | 2018-10-23 16:08 | Diagnostic Imaging Report ---
INDICATION: Pancreatic cancer and ascites. EXAMINATION: Sonographic guidance was provided for Dr. Ma for paracentesis. FINDINGS: Images demonstrate moderate fluid in the right lower quadrant. Followup images demonstrate complete resolution of right lower quadrant ascites. IMPRESSION: Sonographic guidance for Dr. Ma for paracentesis. Dictated by: Dictated on workstation # [id number]
--- NOTE | 2018-10-23 21:31 | OPERATIVE REPORT ---
DATE OF SERVICE: 10/23/2018 PREOPERATIVE DIAGNOSIS: Symptomatic ascites. POSTOPERATIVE DIAGNOSIS: Symptomatic ascites. PROCEDURE: Ultrasound-guided paracentesis. SURGEON: Dale Ma DO ANESTHESIA: 1% lidocaine. ESTIMATED BLOOD LOSS: Minimal. COMPLICATIONS: None. INDICATIONS: The patient is a 58-year-old female who is symptomatic from her abdominal ascites. She understands risks and benefits of procedure and wished to proceed. DESCRIPTION OF PROCEDURE: The ultrasound was used to locate the largest pocket on the abdomen. This was then marked and the area was prepped and draped in sterile fashion. Local anesthetic was infiltrated into the area. A #11 blade scalpel was used to make a skin incision. A Kqyp-G-Nhutijyl needle catheter was inserted through the incision until straw colored fluid was withdrawn. The catheter was then advanced and a total of 2500 mL of straw colored fluid was withdrawn. The catheter was then removed and sterile bandage was applied. The patient tolerated procedure well without any complications, taken to recovery room in stable condition. Job ID: [id number] DocumentID: [id number] Dictated Date: 10/23/2018 17:02:43 Debt Collection Specialist Date: 10/23/2018 21:30:22 Dictated By: DALE MA DO
== END ==
LOC: RAD 10:06
PROVIDERS: ATTEND Surgery
DX: C25.9 Malignant neoplasm of pancreas, unspecified (principal); R18.8 Other ascites
CPT/HCPCS: 49083

== ENCOUNTER → 2018-11-17 | Outpatient (RCR) | payer BC ==
[2018-08-25 08:46] LABS: BASOPHILS % (AUTO) 0 % (0-10); EOSINOPHILS % (AUTO) 1 % (0-10); HEMATOCRIT 36 % (35-52); HEMOGLOBIN 11.1 G/DL (11.5-16.0); LYMPHOCYTES # (AUTO) 0.7 X 10^3 (1.0-4.0); LYMPHOCYTES % (AUTO) 28 % (12-44); MEAN CORPUSCULAR HEMOGLOBIN 28 PG (25-34); MEAN CORPUSCULAR HGB CONC 31 G/DL (32-36); MEAN CORPUSCULAR VOLUME 90 FL (80-99); MEAN PLATELET VOLUME 10.2 FL (7.4-10.4); MONOCYTES # (AUTO) 0.3 X 10^3 (0.0-1.0); MONOCYTES % (AUTO) 12 % (0-12); NEUTROPHILS # (AUTO) 1.5 X 10^3 (1.8-7.8); NEUTROPHILS % (AUTO) 59 % (42-75); PLATELET COUNT 225 10^3/uL (130-400); RED CELL DISTRIBUTION WIDTH 15.9 % (10.0-14.5); WHITE BLOOD COUNT 2.5 10^3/uL (4.3-11.0)
[2018-08-25 09:10] LABS: BUN/CREATININE RATIO 10; CARBON DIOXIDE 25 MMOL/L (21-32); CHLORIDE 108 MMOL/L (98-107); GFR ESTIMATED > 60; GLUCOSE 102 MG/DL (70-105); POTASSIUM 3.8 MMOL/L (3.6-5.0); SODIUM 141 MMOL/L (135-145)
[2018-08-31 09:11] LABS: BASOPHILS % (AUTO) 0 % (0-10); EOSINOPHILS % (AUTO) 1 % (0-10); HEMATOCRIT 36 % (35-52); HEMOGLOBIN 11.4 G/DL (11.5-16.0); LYMPHOCYTES # (AUTO) 0.5 X 10^3 (1.0-4.0); LYMPHOCYTES % (AUTO) 22 % (12-44); MEAN CORPUSCULAR HEMOGLOBIN 28 PG (25-34); MEAN CORPUSCULAR HGB CONC 32 G/DL (32-36); MEAN CORPUSCULAR VOLUME 89 FL (80-99); MEAN PLATELET VOLUME 10.6 FL (7.4-10.4); MONOCYTES # (AUTO) 0.4 X 10^3 (0.0-1.0); MONOCYTES % (AUTO) 16 % (0-12); NEUTROPHILS # (AUTO) 1.5 X 10^3 (1.8-7.8); NEUTROPHILS % (AUTO) 61 % (42-75); PLATELET COUNT 142 10^3/uL (130-400); RED CELL DISTRIBUTION WIDTH 15.7 % (10.0-14.5); WHITE BLOOD COUNT 2.5 10^3/uL (4.3-11.0)
[2018-08-31 09:30] LABS: ALANINE AMINOTRANSFERASE 13 U/L (0-55); ALBUMIN 4.2 GM/DL (3.2-4.5); ALKALINE PHOSPHATASE 87 U/L (40-136); BILIRUBIN,TOTAL 0.4 MG/DL (0.1-1.0); BUN/CREATININE RATIO 10; CARBON DIOXIDE 24 MMOL/L (21-32); CHLORIDE 107 MMOL/L (98-107); GFR ESTIMATED > 60; GLUCOSE 82 MG/DL (70-105); POTASSIUM 3.9 MMOL/L (3.6-5.0); SODIUM 140 MMOL/L (135-145); TOTAL PROTEIN 6.5 GM/DL (6.4-8.2)
[2018-09-28 09:45] LABS: BASOPHILS % (AUTO) 0 % (0-10); EOSINOPHILS % (AUTO) 1 % (0-10); HEMATOCRIT 37 % (35-52); HEMOGLOBIN 11.5 G/DL (11.5-16.0); LYMPHOCYTES # (AUTO) 0.5 X 10^3 (1.0-4.0); LYMPHOCYTES % (AUTO) 16 % (12-44); MEAN CORPUSCULAR HEMOGLOBIN 28 PG (25-34); MEAN CORPUSCULAR HGB CONC 31 G/DL (32-36); MEAN CORPUSCULAR VOLUME 90 FL (80-99); MONOCYTES # (AUTO) 0.3 X 10^3 (0.0-1.0); MONOCYTES % (AUTO) 9 % (0-12); NEUTROPHILS # (AUTO) 2.4 X 10^3 (1.8-7.8); NEUTROPHILS % (AUTO) 74 % (42-75); PLATELET COUNT 167 10^3/uL (130-400); RED CELL DISTRIBUTION WIDTH 16.7 % (10.0-14.5); WHITE BLOOD COUNT 3.2 10^3/uL (4.3-11.0)
[2018-09-28 10:10] LABS: ALANINE AMINOTRANSFERASE 14 U/L (0-55); ALKALINE PHOSPHATASE 135 U/L (40-136); BILIRUBIN,TOTAL 0.5 MG/DL (0.1-1.0); BUN/CREATININE RATIO 11; CALCIUM 9.1 MG/DL (8.5-10.1); CARBON DIOXIDE 23 MMOL/L (21-32); CHLORIDE 106 MMOL/L (98-107); CREATININE SERUM 0.73 MG/DL (0.60-1.30); GFR ESTIMATED > 60; GLUCOSE 119 MG/DL (70-105); POTASSIUM 3.5 MMOL/L (3.6-5.0); SODIUM 142 MMOL/L (135-145); TOTAL PROTEIN 6.4 GM/DL (6.4-8.2)
[2018-10-14 14:20] LABS: BASOPHILS % (AUTO) 0 % (0-10); EOSINOPHILS % (AUTO) 0 % (0-10); HEMATOCRIT 36 % (35-52); HEMOGLOBIN 11.8 G/DL (11.5-16.0); LYMPHOCYTES # (AUTO) 0.5 X 10^3 (1.0-4.0); LYMPHOCYTES % (AUTO) 6 % (12-44); MEAN CORPUSCULAR HEMOGLOBIN 28 PG (25-34); MEAN CORPUSCULAR HGB CONC 33 G/DL (32-36); MEAN CORPUSCULAR VOLUME 86 FL (80-99); MONOCYTES # (AUTO) 0.9 X 10^3 (0.0-1.0); MONOCYTES % (AUTO) 10 % (0-12); NEUTROPHILS # (AUTO) 8.2 X 10^3 (1.8-7.8); NEUTROPHILS % (AUTO) 85 % (42-75); PLATELET COUNT 253 10^3/uL (130-400); RED CELL DISTRIBUTION WIDTH 17.5 % (10.0-14.5); WHITE BLOOD COUNT 9.7 10^3/uL (4.3-11.0)
[2018-10-14 14:41] LABS: ALANINE AMINOTRANSFERASE 13 U/L (0-55); ALBUMIN 3.9 GM/DL (3.2-4.5); ALKALINE PHOSPHATASE 125 U/L (40-136); BILIRUBIN,TOTAL 0.5 MG/DL (0.1-1.0); BUN/CREATININE RATIO 14; CALCIUM 8.9 MG/DL (8.5-10.1); CARBON DIOXIDE 26 MMOL/L (21-32); CHLORIDE 102 MMOL/L (98-107); CREATININE SERUM 0.72 MG/DL (0.60-1.30); GFR ESTIMATED > 60; GLUCOSE 135 MG/DL (70-105); MAGNESIUM 2.2 MG/DL (1.8-2.4); POTASSIUM 3.6 MMOL/L (3.6-5.0); SODIUM 137 MMOL/L (135-145); TOTAL PROTEIN 6.3 GM/DL (6.4-8.2)
[2018-10-19 13:26] LABS: BASOPHILS % (AUTO) 0 % (0-10); EOSINOPHILS % (AUTO) 1 % (0-10); HEMATOCRIT 38 % (35-52); HEMOGLOBIN 12.4 G/DL (11.5-16.0); LYMPHOCYTES # (AUTO) 0.5 X 10^3 (1.0-4.0); LYMPHOCYTES % (AUTO) 9 % (12-44); MEAN CORPUSCULAR HEMOGLOBIN 29 PG (25-34); MEAN CORPUSCULAR HGB CONC 33 G/DL (32-36); MEAN CORPUSCULAR VOLUME 88 FL (80-99); MEAN PLATELET VOLUME 10.5 FL (7.4-10.4); MONOCYTES # (AUTO) 0.1 X 10^3 (0.0-1.0); MONOCYTES % (AUTO) 2 % (0-12); NEUTROPHILS # (AUTO) 5.5 X 10^3 (1.8-7.8); NEUTROPHILS % (AUTO) 89 % (42-75); PLATELET COUNT 130 10^3/uL (130-400); WHITE BLOOD COUNT 6.2 10^3/uL (4.3-11.0)
[2018-10-19 13:45] LABS: BUN/CREATININE RATIO 22; CALCIUM 8.3 MG/DL (8.5-10.1); CARBON DIOXIDE 24 MMOL/L (21-32); CHLORIDE 100 MMOL/L (98-107); CREATININE SERUM 0.65 MG/DL (0.60-1.30); GFR ESTIMATED > 60; GLUCOSE 105 MG/DL (70-105); MAGNESIUM 2.6 MG/DL (1.8-2.4); POTASSIUM 3.5 MMOL/L (3.6-5.0); SODIUM 133 MMOL/L (135-145)
[2018-10-19 14:03] LABS: CLARITY,URINE CLEAR; COLOR,URINE YELLOW; GLUCOSE, URINE (UA) NEGATIVE (NEGATIVE); KETONES,URINE 1+ (NEGATIVE); LEUKOCYTE ESTERASE ,URINE 1+ (NEGATIVE); NITRITE,URINE NEGATIVE (NEGATIVE); PH,URINE 6.5 (5-9); PROTEIN,URINE 2+ (NEGATIVE); UROBILINOGEN,URINE 4 MG/DL (NORMAL)
[2018-10-19 14:23] LABS: BACTERIA,URINE NEGATIVE /HPF; BILIRUBIN,URINE 1+ (NEGATIVE)
[2018-10-28 11:05] LABS: BASOPHILS % (AUTO) 1 % (0-10); EOSINOPHILS # (AUTO) 0.1 10^3/uL (0.0-0.3); EOSINOPHILS % (AUTO) 2 % (0-10); HEMATOCRIT 39 % (35-52); LYMPHOCYTES # (AUTO) 0.7 X 10^3 (1.0-4.0); LYMPHOCYTES % (AUTO) 25 % (12-44); MEAN CORPUSCULAR HEMOGLOBIN 29 PG (25-34); MEAN CORPUSCULAR HGB CONC 33 G/DL (32-36); MEAN CORPUSCULAR VOLUME 86 FL (80-99); MEAN PLATELET VOLUME 8.8 FL (7.4-10.4); MONOCYTES # (AUTO) 0.6 X 10^3 (0.0-1.0); MONOCYTES % (AUTO) 22 % (0-12); NEUTROPHILS # (AUTO) 1.3 X 10^3 (1.8-7.8); NEUTROPHILS % (AUTO) 49 % (42-75); PLATELET COUNT 193 10^3/uL (130-400); RED CELL DISTRIBUTION WIDTH 18.1 % (10.0-14.5); WHITE BLOOD COUNT 2.7 10^3/uL (4.3-11.0)
[2018-10-28 13:25] LABS: ALANINE AMINOTRANSFERASE 21 U/L (0-55); ALBUMIN 3.3 GM/DL (3.2-4.5); ALKALINE PHOSPHATASE 158 U/L (40-136); BILIRUBIN,TOTAL 0.4 MG/DL (0.1-1.0); BUN/CREATININE RATIO 14; CALCIUM 8.8 MG/DL (8.5-10.1); CARBON DIOXIDE 25 MMOL/L (21-32); CHLORIDE 97 MMOL/L (98-107); CREATININE SERUM 0.64 MG/DL (0.60-1.30); GFR ESTIMATED > 60; GLUCOSE 106 MG/DL (70-105); MAGNESIUM 1.9 MG/DL (1.8-2.4); POTASSIUM 3.3 MMOL/L (3.6-5.0); SODIUM 134 MMOL/L (135-145); TOTAL PROTEIN 5.9 GM/DL (6.4-8.2)
[2018-11-02 10:10] LABS: BASOPHILS % (AUTO) 0 % (0-10); EOSINOPHILS # (AUTO) 0.1 10^3/uL (0.0-0.3); EOSINOPHILS % (AUTO) 1 % (0-10); HEMATOCRIT 41 % (35-52); HEMOGLOBIN 13.8 G/DL (11.5-16.0); LYMPHOCYTES # (AUTO) 0.8 X 10^3 (1.0-4.0); LYMPHOCYTES % (AUTO) 10 % (12-44); MEAN CORPUSCULAR HEMOGLOBIN 29 PG (25-34); MEAN CORPUSCULAR HGB CONC 33 G/DL (32-36); MEAN CORPUSCULAR VOLUME 86 FL (80-99); MEAN PLATELET VOLUME 8.6 FL (7.4-10.4); MONOCYTES # (AUTO) 0.7 X 10^3 (0.0-1.0); MONOCYTES % (AUTO) 9 % (0-12); NEUTROPHILS # (AUTO) 5.8 X 10^3 (1.8-7.8); NEUTROPHILS % (AUTO) 79 % (42-75); PLATELET COUNT 269 10^3/uL (130-400); RED CELL DISTRIBUTION WIDTH 17.6 % (10.0-14.5); WHITE BLOOD COUNT 7.3 10^3/uL (4.3-11.0)
[2018-11-02 10:30] LABS: BUN/CREATININE RATIO 14; CALCIUM 8.4 MG/DL (8.5-10.1); CARBON DIOXIDE 23 MMOL/L (21-32); CHLORIDE 97 MMOL/L (98-107); CREATININE SERUM 0.72 MG/DL (0.60-1.30); GFR ESTIMATED > 60; GLUCOSE 116 MG/DL (70-105); POTASSIUM 3.2 MMOL/L (3.6-5.0); SODIUM 132 MMOL/L (135-145)
[2018-11-10 10:14] LABS: ALANINE AMINOTRANSFERASE 13 U/L (0-55); ALKALINE PHOSPHATASE 118 U/L (40-136); BILIRUBIN,TOTAL 0.4 MG/DL (0.1-1.0); BUN/CREATININE RATIO 15; CALCIUM 8.5 MG/DL (8.5-10.1); CARBON DIOXIDE 20 MMOL/L (21-32); CHLORIDE 103 MMOL/L (98-107); CREATININE SERUM 0.67 MG/DL (0.60-1.30); GFR ESTIMATED > 60; GLUCOSE 95 MG/DL (70-105); MAGNESIUM 2.8 MG/DL (1.8-2.4); POTASSIUM 4.6 MMOL/L (3.6-5.0); SODIUM 134 MMOL/L (135-145); TOTAL PROTEIN 6.1 GM/DL (6.4-8.2)
[~2018-11-17] VITALS: Ht 151.1 cm; Wt 51.3 kg
[~2018-11-17] MED LIST changes: +ATROPINE INJ 0.4 MG/ML SDV (CANCER CENTER) INJ SCH; +D5W 500 ML IV (CANCER CTR) 500 ML IV SCH; +D5W IV SCH; +FAMOTIDINE 20MG/2ML IV (CANCER CTR) IV SCH; +FLUOROURACIL 2.5 GM, FLUOROURACIL 500 MG in NS (IVPB) CANCER CENTER 87.2 ML IV SCH; +FOSAPREPITANT DIMEGLUMINE 150 MG in NS (IVPB) CANCER CENTER ONLY 150 ML IV SCH; +HYDROMORPHONE 2 MG/ML IV PRN; +IRINOTECAN LIPOSOMAL IV SCH; +LEUCOVORIN CALCIUM IV SCH; +NS IV 1000 ML (CANCER CTR) 1,000 ML IV SCH; +NS IV 1000 ML (CANCER CTR) 1,000 ML ONE; +NS IV 500 ML (CANCER CENTER) 500 ML ONE; +ONDANSETRON 4 MG (ZOFRAN) ORAL DISSOLVE TAB PO ONE; +ONDANSETRON 8 MG, DEXAMETHASONE 4 MG/NS 50 ML IVPB (Cancer Ctr) IV ONE; +ONDANSETRON MDV (CANCER CENTER 8 MG, DEXAMETHASONE INJ (CANCER CTR) 4 MG in NS (IVPB) C... IV NR; +PALONOSETRON HCL 0.25 MG, DEXAMETHASONE INJECTION 10 MG in NS (IVPB) CANCER CENTER 50 ML IV SCH; +PANTOPRAZOLE 40 MG (PROTONIX) VIAL IV NR; +PANTOPRAZOLE 40 MG (PROTONIX) VIAL IV ONE; +POTASSIUM CHL INJ (CANCER CTR) 20 MEQ in NS IV 1000 ML (CANCER CTR) 1,000 ML IV ONE; +SUCRALFATE 1 GM (CARAFATE) TAB PO ONE; +diphenhydrAMINE 50 MG/ML INJ (CANCER CENTER) ONE
[2018-11-17 09:40] LABS: BASOPHILS % (AUTO) 0 % (0-10); EOSINOPHILS # (AUTO) 0.1 10^3/uL (0.0-0.3); EOSINOPHILS % (AUTO) 3 % (0-10); HEMATOCRIT 39 % (35-52); HEMOGLOBIN 12.7 G/DL (11.5-16.0); LYMPHOCYTES # (AUTO) 0.6 X 10^3 (1.0-4.0); LYMPHOCYTES % (AUTO) 10 % (12-44); MEAN CORPUSCULAR HEMOGLOBIN 29 PG (25-34); MEAN CORPUSCULAR HGB CONC 32 G/DL (32-36); MEAN CORPUSCULAR VOLUME 91 FL (80-99); MEAN PLATELET VOLUME 9.6 FL (7.4-10.4); MONOCYTES # (AUTO) 0.5 X 10^3 (0.0-1.0); MONOCYTES % (AUTO) 9 % (0-12); NEUTROPHILS # (AUTO) 4.2 X 10^3 (1.8-7.8); NEUTROPHILS % (AUTO) 78 % (42-75); PLATELET COUNT 194 10^3/uL (130-400); RED CELL DISTRIBUTION WIDTH 19.9 % (10.0-14.5); WHITE BLOOD COUNT 5.4 10^3/uL (4.3-11.0)
[2018-11-17 11:02] LABS: ALANINE AMINOTRANSFERASE 10 U/L (0-55); ALBUMIN 3.1 GM/DL (3.2-4.5); ALKALINE PHOSPHATASE 123 U/L (40-136); BILIRUBIN,TOTAL 0.5 MG/DL (0.1-1.0); BUN/CREATININE RATIO 14; CALCIUM 8.6 MG/DL (8.5-10.1); CARBON DIOXIDE 24 MMOL/L (21-32); CHLORIDE 103 MMOL/L (98-107); CREATININE SERUM 0.66 MG/DL (0.60-1.30); GFR ESTIMATED > 60; GLUCOSE 92 MG/DL (70-105); SODIUM 135 MMOL/L (135-145); TOTAL PROTEIN 5.8 GM/DL (6.4-8.2)
== END | disposition home or self-care (01) ==
LOC: ONC 08-19 08:51
PROVIDERS: ATTEND Internal Medicine Hematology & Oncology
DX: Z51.11 Encounter for antineoplastic chemotherapy (principal); C25.1 Malignant neoplasm of body of pancreas; E03.9 Hypothyroidism, unspecified; F32.9 Major depressive disorder, single episode, unspecified; Z79.899 Other long term (current) drug therapy
CPT/HCPCS: 36415; 77295; 77300; 77332; 77334; 77336; 77417; 77470; 80048; 80053; 81000; 83735; 85025; 86301; 96360; 96361; 96365; 96366; 96367; 96374; 96375; 96376; 96413; 96416; 99204; 99213

== ENCOUNTER 2018-11-18 15:00 | Outpatient (CLI) | payer BC ==
[~2018-11-18] VITALS: Ht 149.9 cm; Wt 49.9 kg
[~2018-11-18 15:00] MED LIST changes: -ATROPINE INJ 0.4 MG/ML SDV (CANCER CENTER) INJ SCH; -D5W 500 ML IV (CANCER CTR) 500 ML IV SCH; -D5W IV SCH; -FAMOTIDINE 20MG/2ML IV (CANCER CTR) IV SCH; -FLUOROURACIL 2.5 GM, FLUOROURACIL 500 MG in NS (IVPB) CANCER CENTER 87.2 ML IV SCH; -FOSAPREPITANT DIMEGLUMINE 150 MG in NS (IVPB) CANCER CENTER ONLY 150 ML IV SCH; -HYDROMORPHONE 2 MG/ML IV PRN; -IRINOTECAN LIPOSOMAL IV SCH; -LEUCOVORIN CALCIUM IV SCH; -NS IV 1000 ML (CANCER CTR) 1,000 ML IV SCH; -NS IV 1000 ML (CANCER CTR) 1,000 ML ONE; -NS IV 500 ML (CANCER CENTER) 500 ML ONE; -ONDANSETRON 4 MG (ZOFRAN) ORAL DISSOLVE TAB PO ONE; -ONDANSETRON 8 MG, DEXAMETHASONE 4 MG/NS 50 ML IVPB (Cancer Ctr) IV ONE; -ONDANSETRON MDV (CANCER CENTER 8 MG, DEXAMETHASONE INJ (CANCER CTR) 4 MG in NS (IVPB) C... IV NR; -PALONOSETRON HCL 0.25 MG, DEXAMETHASONE INJECTION 10 MG in NS (IVPB) CANCER CENTER 50 ML IV SCH; -PANTOPRAZOLE 40 MG (PROTONIX) VIAL IV NR; -PANTOPRAZOLE 40 MG (PROTONIX) VIAL IV ONE; -POTASSIUM CHL INJ (CANCER CTR) 20 MEQ in NS IV 1000 ML (CANCER CTR) 1,000 ML IV ONE; -SUCRALFATE 1 GM (CARAFATE) TAB PO ONE; -diphenhydrAMINE 50 MG/ML INJ (CANCER CENTER) ONE
== END 2018-11-18 15:19 | disposition home or self-care (01) ==
LOC: PREOP 15:00
PROVIDERS: ATTEND Surgery
DX: Z01.818 Encounter for other preprocedural examination (principal)

== ENCOUNTER 2018-11-20 12:01 | Day surgery (SDC) | payer BC ==
[2018-11-20] VITALS (11 sets, daily range): BP systolic 79–128; BP diastolic 44–76
[~2018-11-20] VITALS: Ht 149.9 cm; Wt 49.9 kg
--- OUTSIDE RECORDS SUMMARY | 2018-11-20 12:08 | XMS REPORT ---
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 822441110 Problem Need for prophylactic vaccination and inoculation, Influenza V04.81 Active 534913765 Problem Hypercholesterolemia E78.0 Active 66919950 Problem ZOSTAVAX DX V05.8 Active 74068488 Problem Unspecified osteoporosis 733.00 Active 16482911 Problem Cervicalgia 723.1 Active 51429956 Problem Acute pharyngitis 462 Active 773418690 Problem 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 Active 43206591 ALLERGIES No Information ENCOUNTERS Encounter Location Date Diagnosis [facility] [id number] [place] [id number] September, [facility] [id number] [place] [phone] September, [facility] [id number] [place] [id number] Jun, Encounter for immunization Z23 [facility] [address] [address] Mar, [facility] [id number] [place] [id number] Feb, Encounter for immunization Z23 [facility] [address] [address] 15 Oct, 2015 Hypothyroidism E03.9 [facility] [id number] [place] [address] 14 Oct, 2015 [facility] [address] [address] Jul, Hypothyroidism E03.9 ; Family history of heart disease Z82.49 and Hypercholesterolemia E78.0 [facility] [address] [address] Jul, Acquired hypothyroidism E03.9 and Screening for hyperlipidemia Z13.220 [facility] [address] [address] Feb, Encounter for immunization Z23 [facility] [address] [address] Feb, Encounter for immunization Z23 [facility] [address] [address] Dec, [facility] [address] [address] Dec, [facility] [address] [address] Aug, [facility] [id number] [place] [address] Aug, [facility] [id number] [place] [address] Apr, [facility] [id number] [place] [address] Apr, [facility] [address] [address] Mar, [facility] [id number] [place] [address] Mar, [facility] [address] [address] Feb, [facility] [place] [facility] [address] [id number] [place] [address] Feb, [facility] [place] [facility] [address] [id number] [place] [address] Feb, [facility] [place] [facility] [address] [id number] [place] [address] Feb, [facility] [place] [facility] [address] [id number] [place] [address] Feb, [facility] [place] [facility] [address] [id number] [place] [address] Feb, [facility] [place] [facility] [address] [id number] [place] [address] Feb, [facility] [place] [facility] [address] [id number] [place] [address] Feb, [facility] [place] [facility] [address] [id number] [place] [address] Feb, [facility] [place] [facility] [address] [id number] [place] [address] Feb, [facility] [place] [facility] [address] [id number] [place] [address] 15 Jan, 2014 [facility] [place] [facility] [address] [id number], [place] [address] 15 Jan, 2014 [facility] [place] [facility] [address] [id number], [place] [address] Dec, [facility] [place] [facility] [address] [id number] [place] [address] Dec, [facility] [place] [facility] [address] [id number] [place] [address] Jul, [facility] [place] [facility] [address] [id number] [place] [address] Jul, [facility] [place] [facility] [address] [address] 13 Jun, 2013 [facility] [address] [address] Jun, [facility] [address] [address] Mar, [facility] [address] [place] [address] Mar, [facility] [address] [place] [address] Feb, [facility] [id number] [place] [address] Jan, [facility] [address] [place] [address] Aug, [facility] [address] [place] [address] May, [facility] [address] [place] [address] Mar, [facility] [address] [place] [address] Mar, [facility] [address] [place] [address] Mar, [facility] [address] [place] [address] Mar, [facility] [id number] [address] Feb, [facility] [address] [place] [address] Feb, [facility] [address] [place] [address] Feb, IMMUNIZATIONS No Known Immunizations SOCIAL HISTORY Never Assessed REASON FOR VISIT EMR-[facility] PLAN OF CARE VITAL SIGNS MEDICATIONS Medication Instructions Dosage Frequency Start Date End Date Duration Status Flonase 50 mcg/actuation 1 sprays by Nasal route 2 times per day in each nostril Jun, Active Fioricet 50-325-40 mg 2 tablet by Oral route every 6 hours PRN not to exceed 6 tablets/day, 10/week Feb, Active Synthroid 88 mcg 1 tablet by Oral route 1 time per day Brand name only Mar, Active Zofran ODT 8 mg 1 tablet by Oral route every 8 hours PRN nausea or vomiting Jan, Active Doxycycline Hyclate 100 mg take 1 tablet (100 mg) by oral route 2 times per day for 7 days Mar, Active Flexeril 5 mg 1 tablet by Oral route 3 times per day PRN for tremors Jan, Active Bactroban 2 % 1 gia by Topical route 2 times per day for 14 day(s) Mar, Active Bactrim DS 800-160 mg 1 tablet by Oral route 2 times per day for 10 day(s) Jun, Active TobraDex 0.3-0.1 % 2 drop by Ophthalmic route 2 times per day for 7 day(s)to right eye May, Active RESULTS No Results PROCEDURES No Known procedures INSTRUCTIONS MEDICATIONS ADMINISTERED No Known Medications
--- OUTSIDE RECORDS SUMMARY | 2018-11-20 12:08 | XMS REPORT ---
Author Author [facility] Address [address] [place] [address] Care Team Providers Care Inspector Rubber Stamp Die Name Role Phone CARMELITAJUDITAMARILYS Unavailable PROBLEMS Type Condition ICD9-CM Code ATP48-LD Code Onset Dates Condition Status SNOMED Code Problem PPV23 (PNEUMOVAX) DX V03.82 Active Problem Other, multiple, and unspecified sites, insect bite, nonvenomous, infected 919.5 Active 188334056 Problem Bite of nonvenomous arthropod E906.4 Active 988818790 Problem DTAP TEST V06.1 Active Problem ZOSTAVAX DX V05.8 Active 77208706 Problem Need for prophylactic vaccination and inoculation, Influenza V04.81 Active 750629899 Problem Hypercholesterolemia E78.0 Active 28095909 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
--- OUTSIDE RECORDS SUMMARY | 2018-11-20 12:08 | XMS REPORT ---
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 345614133 Problem Need for prophylactic vaccination and inoculation, Influenza V04.81 Active 932498812 Problem Hypercholesterolemia E78.0 Active 20545549 Problem ZOSTAVAX DX V05.8 Active 18219827 Problem Unspecified osteoporosis 733.00 Active 28989106 Problem Cervicalgia 723.1 Active 70984054 Problem Acute pharyngitis 462 Active 456362367 Problem 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 Active 72132332 ALLERGIES No Information ENCOUNTERS Encounter Location Date Diagnosis [facility] [id number] [place] [address] September, [facility] [id number] [place] [address] September, [facility] [id number] [place] [id number] Jun, Encounter for immunization Z23 [facility] [address] [address] Mar, [facility] [id number] [place] [id number] Feb, Encounter for immunization Z23 [facility] [address] [address] 15 Oct, 2015 Hypothyroidism E03.9 [facility] [id number] [place] [address] 14 Oct, 2015 [facility] [address] [address] Jul, Hypothyroidism E03.9 ; Family history of heart disease Z82.49 and Hypercholesterolemia E78.0 [facility] [address] [address] Jul, Acquired hypothyroidism E03.9 and Screening for hyperlipidemia Z13.220 [facility] [address] [address] Feb, Encounter for immunization Z23 [facility] [address] [address] Feb, Encounter for immunization Z23 [facility] [address] [address] Dec, [facility] [address] [address] Dec, [facility] [address] [address] Aug, [facility] [id number] [place] [address] Aug, [facility] [id number] [place] [address] Apr, [facility] [id number] [place] [address] Apr, [facility] [address] [address] Mar, [facility] [id number] [place] [address] Mar, [facility] [address] [address] Feb, [facility] [place] [facility] [address] [id number] [place] [address] Feb, [facility] [place] [facility] [address] [id number] [place] [address] Feb, [facility] [place] [facility] [address] [id number] [place] [address] Feb, [facility] [place] [facility] [address] [id number] [place] [address] Feb, [facility] [place] [facility] [address] [id number] [place] [address] Feb, [facility] [place] [facility] [address] [id number] [place] [address] Feb, [facility] [place] [facility] [address] [id number] [place] [address] Feb, [facility] [place] [facility] [address] [id number] [place] [address] Feb, [facility] [place] [facility] [address] [id number] [place] [address] Feb, [facility] [place] [facility] [address] [id number] [place] [address] 15 Jan, 2014 [facility] [place] [facility] [address] [id number], [place] [address] 15 Jan, 2014 [facility] [place] [facility] [address] [id number], [place] [address] Dec, [facility] [place] [facility] [address] [id number] [place] [address] Dec, [facility] [place] [facility] [address] [id number] [place] [address] Jul, [facility] [place] [facility] [address] [id number] [place] [address] Jul, [facility] [place] [facility] [address] [place] [address] 13 Jun, 2013 [facility] [id number] [place] [address] Jun, [facility] [id number] [place] [address] Mar, [facility] [id number] [place] [address] Mar, [facility] [id number] [place] [address] Feb, [facility] [id number] [place] [address] Jan, [facility] [id number] [place] [address] Aug, [facility] [id number] [place] [address] May, [facility] [id number] [place] [address] Mar, [facility] [id number] [place] [address] Mar, [facility] [id number] [place] [address] Mar, [facility] [address] [place] [address] Mar, [facility] [address] [place] [address] Feb, [facility] [address] [place] [address] Feb, [facility] [address] [place] [address] Feb, IMMUNIZATIONS No Known Immunizations SOCIAL HISTORY Never Assessed REASON FOR VISIT EMR-[facility] [place] PLAN OF CARE VITAL SIGNS MEDICATIONS Unknown Medications RESULTS No Results PROCEDURES No Known procedures INSTRUCTIONS MEDICATIONS ADMINISTERED No Known Medications
--- OUTSIDE RECORDS SUMMARY | 2018-11-20 12:09 | XMS REPORT ---
Author Author AMARILYS FLORENCE [facility] [place] Address [address] [place] [address] Care Team Providers Care Radio Electronics Officer Name Role Phone AMARILYS FLORENCE Unavailable PROBLEMS Type Condition ICD9-CM Code [id number] Code Onset Dates Condition Status SNOMED Code Problem PPV23 (PNEUMOVAX) DX V03.82 Active 50779634 Problem Other, multiple, and unspecified sites, insect bite, nonvenomous, infected 919.5 Active 264496922 Problem Bite of nonvenomous arthropod E906.4 Active 782882607 Problem DTAP TEST V06.1 Active Problem ZOSTAVAX DX V05.8 Active 50265381 Problem Need for prophylactic vaccination and inoculation, Influenza V04.81 Active 594384019 Problem Hypercholesterolemia E78.0 Active 73506331 Problem 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
--- OUTSIDE RECORDS SUMMARY | 2018-11-20 12:09 | XMS REPORT ---
Author Author AMARILYS FLORENCE [facility] [place] Address [address] [place] [address] Care Team Providers Care Lien Searcher Name Role Phone CARMELITAJUDITAMARILYS Unavailable PROBLEMS Type Condition ICD9-CM Code NSF30-KQ Code Onset Dates Condition Status SNOMED Code Problem PPV23 (PNEUMOVAX) DX V03.82 Active 36162402 Problem Other, multiple, and unspecified sites, insect bite, nonvenomous, infected 919.5 Active 077664454 Problem Bite of nonvenomous arthropod E906.4 Active 187386891 Problem DTAP TEST V06.1 Active Problem ZOSTAVAX DX V05.8 Active 65204627 Problem Need for prophylactic vaccination and inoculation, Influenza V04.81 Active 823695940 Problem Hypercholesterolemia E78.0 Active 26337837 Problem 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 982710438 Problem Cervicalgia 723.1 Active 28613181 Problem Unspecified osteoporosis 733.00 Active 77411554 Problem 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
--- OUTSIDE RECORDS SUMMARY | 2018-11-20 12:11 | XMS REPORT | Continuity of Care Document ---
Author Organization Unknown Address Unknown Allergies Active Description Code Type Severity Reaction Onset Reported/Identified Relationship to Patient Clinical Status Yes NKANo Known Allergies NKA Miscellaneous Allergy Unknown N/A 09/21/2005 Yes bisacodyl [id number] Drug Allergy Unknown HIVES 12/05/2016 Yes SENOK SENOK Unknown N/A 12/09/2016 Yes oxaliplatin [id number] Drug Allergy Severe N/A 12/13/2016 Medications There is no data. 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 JT SWANSON Ot E03.9 HYPOTHYROIDISM, UNSPECIFIED JT SWANSON Ot F32.9 MAJOR DEPRESSIVE DISORDER, SINGLE EPISOD JT SWANSON Ot Z51.11 ENCOUNTER FOR ANTINEOPLASTIC CHEMOTHERAP JT SWANSON Ot Z79.899 OTHER BUILDING SERVICES SUPERVISOR (CURRENT) DRUG THERAPY 04/17/1413 ARCELIA HUBER, ALLI Ot 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 04/17/1413 ARCELIA HUBER, ALLI Ot E03.9 HYPOTHYROIDISM, UNSPECIFIED 04/17/1413 ALLI PANIAGUA MD Ot F32.9 MAJOR DEPRESSIVE DISORDER, SINGLE EPISOD 04/17/1413 ALLI PANIAGUA MD Ot Z51.11 ENCOUNTER FOR ANTINEOPLASTIC CHEMOTHERAP 04/17/1413 ALLI PANIAGUA MD Ot Z79.899 OTHER BUILDING SERVICES SUPERVISOR (CURRENT) DRUG THERAPY 02/27/2010 Ot 346.90 02/27/2010 Ot 784.0 02/18/2012 CHERYLE GERIATRIC NURSE, AMARILYS A V04.81 FLU DX (3 YRS AND ABOVE, IM) 02/18/2012 RAJOTTE GERIATRIC NURSE, AMARILYS A V04.81 FLU DX (3 YRS AND ABOVE, IM) 02/18/2012 RAJOTTE GERIATRIC NURSE, AMARILYS A V04.81 FLU DX (3 YRS AND ABOVE, IM) 02/18/2012 RAJOTTE GERIATRIC NURSE, AMARILYS A V04.81 FLU DX (3 YRS AND ABOVE, IM) 02/18/2012 RAJOTTE GERIATRIC NURSE, AMARILYS A V04.81 FLU DX (3 YRS AND ABOVE, IM) 02/18/2012 RAJOTTE GERIATRIC NURSE, AMARILYS A V04.81 FLU DX (3 YRS AND ABOVE, IM) 02/18/2012 RAJALANE GERIATRIC NURSE, AMARILYS A V04.81 FLU DX (3 YRS AND ABOVE, IM) 02/18/2012 RAJOTTE GERIATRIC NURSE, AMARILYS A V04.81 FLU DX (3 YRS AND ABOVE, IM) 03/06/2012 CHERYLE GERIATRIC NURSE, AMARILYS A V03.82 PPV23 (PNEUMOVAX) DX 03/06/2012 CHERYLE GERIATRIC NURSE, AMARILYS A V06.1 TDAP DX 03/06/2012 CHERYLE GERIATRIC NURSE, AMARILYS A V03.82 PPV23 (PNEUMOVAX) DX 03/06/2012 RAJALANE GERIATRIC NURSE, AMARILYS A V06.1 TDAP DX 03/06/2012 RAJOTTE GERIATRIC NURSE, AMARILYS A V03.82 PPV23 (PNEUMOVAX) DX 03/06/2012 RAJOTTE GERIATRIC NURSE, AMARILYS A V06.1 TDAP DX 03/06/2012 RAJOTTE GERIATRIC NURSE, AMARILYS A V03.82 PPV23 (PNEUMOVAX) DX 03/06/2012 RAJALANE GERIATRIC NURSE, AMARILYS A V06.1 TDAP DX 03/06/2012 RAJALANE GERIATRIC NURSE, AMARILYS A V03.82 PPV23 (PNEUMOVAX) DX 03/06/2012 RAJOTTE GERIATRIC NURSE, AMARILYS A V06.1 TDAP DX 03/06/2012 RAJOTTE GERIATRIC NURSE, AMARILYS A V03.82 PPV23 (PNEUMOVAX) DX 03/06/2012 RAJOTTE GERIATRIC NURSE, AMARILYS A V06.1 TDAP DX 03/06/2012 RAJOTTE GERIATRIC NURSE, AMARILYS A V03.82 PPV23 (PNEUMOVAX) DX 03/06/2012 RAJOTTE GERIATRIC NURSE, AMARILYS A V06.1 TDAP DX 03/06/2012 RAJOTTE GERIATRIC NURSE, AMARILYS A V03.82 PPV23 (PNEUMOVAX) DX 03/06/2012 RAJOTTE GERIATRIC NURSE, AMARILYS A V06.1 TDAP DX 06/16/2012 RAJOTTE GERIATRIC NURSE, AMARILYS A 379.00 SCLERITIS UNSPECIFIED 06/16/2012 RAJOTTE GERIATRIC NURSE, AMARILYS A 379.00 SCLERITIS UNSPECIFIED 06/16/2012 RAJOTTE GERIATRIC NURSE, AMARILYS A 379.00 SCLERITIS UNSPECIFIED 06/16/2012 RAJOTTE GERIATRIC NURSE, AMARILYS A 379.00 SCLERITIS UNSPECIFIED 06/16/2012 RAJOTTE GERIATRIC NURSE, AMARILYS A 379.00 SCLERITIS UNSPECIFIED 06/16/2012 RAJOTTE GERIATRIC NURSE, AMARILYS A 379.00 SCLERITIS UNSPECIFIED 06/16/2012 RAJOTTE GERIATRIC NURSE, AMARILYS A 379.00 SCLERITIS UNSPECIFIED 02/18/2013 RAJOTTE GERIATRIC NURSE, AMARILYS A 462 PHARYNGITIS ACUTE 02/18/2013 RAJOTTE GERIATRIC NURSE, AMARILYS A 462 PHARYNGITIS ACUTE 02/18/2013 RAJOTTE GERIATRIC NURSE, AMARILYS A 462 PHARYNGITIS ACUTE 02/18/2013 RAJOTTE GERIATRIC NURSE, AMARILYS A 462 PHARYNGITIS ACUTE 02/18/2013 RAJOTTE GERIATRIC NURSE, AMARILYS A 462 PHARYNGITIS ACUTE 03/09/2013 DIANNE HUBER, SHER Robbins Ot 211.3 BENIGN NEOPLASM LG BOWEL 03/09/2013 SHER DEAN MD Ot 562.10 DIVERTICULOSIS COLON (W/O MENT OF HEMORR 03/09/2013 DIANNE HUBER, SHER Robbins Ot V76.51 SCREEN MAL NEOP-COLON 03/29/2013 CHERYLE GERIATRIC NURSE, AMARILYS A V05.8 ZOSTAVAX DX 03/29/2013 BAL FLORENCE APRNYL A V05.8 ZOSTAVAX DX 03/29/2013 NAMAN CARBONE, AMARILYS A V05.8 ZOSTAVAX DX 03/29/2013 NAMAN CARBONE, AMARILYS A V05.8 ZOSTAVAX DX 07/27/2013 NAMAN CARBONE, AMARILYS A 919.5 INSECT BITE NONVENOMOUS OF OTHER MULTIPLE AND UNSPECIFIED SITES INFECTED 07/27/2013 NAMAN CARBONE AMARILYS A 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 07/27/2013 NAMAN CARBONE, AMARILYS A 919.5 INSECT BITE NONVENOMOUS OF OTHER MULTIPLE AND UNSPECIFIED SITES INFECTED 07/27/2013 BAL FLORENCE APRNYL A 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 07/27/2013 BAL FLORENCE APRNYL A 919.5 INSECT BITE NONVENOMOUS OF OTHER MULTIPLE AND UNSPECIFIED SITES INFECTED 07/27/2013 BAL FLORENCE APRNYL A 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 11/24/2013 CRIS HUBER, MEDINA Sanders Ot 216.5 BENIGN FRIDA SKIN TRUNK 11/24/2013 CRIS HUBER, MEDINA Sanders Ot 244.9 HYPOTHYROIDISM NOS 11/24/2013 CRIS HUBER, MEDINA Sanders Ot 311 DEPRESSIVE DISORDER NEC 11/24/2013 MEDINA LYNCH MD Ot V74.8 SCREEN-BACTERIAL DIS NEC 01/30/2014 JUDE MCCURDY GERIATRIC NURSE Ot 346.90 MIGRAINE UNSPECIFIED W/O INTRACT MGRN W/ 01/30/2014 JUDE MCCURDY GERIATRIC NURSE Ot 784.0 HEADACHE 03/08/2014 NAMAN REYNAN, AMARILYS A 357.9 NEUROPATHY UNSP 03/08/2014 CHERYLE GERIATRIC NURSE, AMARILYS A 723.1 PAIN NECK 03/08/2014 CHERYLE GERIATRIC NURSE, AMARILYS A 733.00 OSTEOPOROSIS UNSPECIFIED 03/08/2014 CHERYLE GERIATRIC NURSE, AMARILYS A 357.9 NEUROPATHY UNSP 03/08/2014 RAJOTTE GERIATRIC NURSE, AMARILYS A 723.1 PAIN NECK 03/08/2014 NAMAN GERIATRIC NURSE, AMARILYS A 733.00 OSTEOPOROSIS UNSPECIFIED 03/16/2015 Ot 787.01 03/16/2015 DIANNE HUBER, SHER Robbins Ot V72.84 03/16/2015 CRIS HUBER, MEDINA M Ot 448.1 03/16/2015 CRIS HUBER, MEDINA M Ot 709.9 03/16/2015 CRIS HUBER, MEDINA Sanders Ot V72.84 09/11/2016 DIANNE HUBER, SHER Robbins Ot R07.9 CHEST PAIN, UNSPECIFIED 09/18/2016 DIANNE HUBER, SHER Robbins Ot R07.9 CHEST PAIN, UNSPECIFIED 10/03/2016 DIANNE HUBER, SHER Robbins Ot R00.2 PALPITATIONS 10/03/2016 DIANNE HUBER, SHER Robbins Ot R07.9 CHEST PAIN, UNSPECIFIED 11/21/2016 SHER DEAN MD Ot K86.89 OTHER SPECIFIED DISEASES OF PANCREAS 12/04/2016 BEAR DO ANN B Ot C25.9 MALIGNANT NEOPLASM OF PANCREAS, UNSPECIF 12/04/2016 BEAR HERNANDEZ ANN B Ot Z01.818 ENCOUNTER FOR OTHER PREPROCEDURAL EXAMIN 12/05/2016 KEEGAN SIFUENTSE DOIC B Ot C25.9 MALIGNANT NEOPLASM OF PANCREAS, UNSPECIF 12/05/2016 BEAR DO, ANN B Ot E03.9 HYPOTHYROIDISM, UNSPECIFIED 12/05/2016 BEAR DO ANN B Ot F32.9 MAJOR DEPRESSIVE DISORDER, SINGLE EPISOD 12/05/2016 BEAR DO, ANN B Ot I87.2 VENOUS INSUFFICIENCY (CHRONIC) (PERIPHER 12/05/2016 BEAR DO ANN B Ot Z79.899 OTHER PENITENTIARY (CURRENT) DRUG THERAPY 12/09/2016 JT SWANSON N Ot 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 12/09/2016 SKYJT OZUNA N Ot E03.9 HYPOTHYROIDISM, UNSPECIFIED 12/09/2016 SKYJORGE OZUNAAN N Ot Z79.899 OTHER PENITENTIARY (CURRENT) DRUG THERAPY 12/09/2016 SKYJT OZUNA N Ot 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 12/09/2016 SKYJT OZUNA N Ot E03.9 HYPOTHYROIDISM, UNSPECIFIED 12/09/2016 SKYJORGE OZUNAAN N Ot Z79.899 OTHER PENITENTIARY (CURRENT) DRUG THERAPY 12/09/2016 SHER DEAN MD Ot K86.89 OTHER SPECIFIED DISEASES OF PANCREAS 12/10/2016 DELMAN DO, ANN B Ot C25.9 MALIGNANT NEOPLASM OF PANCREAS, UNSPECIF 12/10/2016 KEEGAN SIFUENTES DOIC B Ot Z01.818 ENCOUNTER FOR OTHER PREPROCEDURAL EXAMIN 12/11/2016 SHER DEAN MD Ot R00.2 PALPITATIONS 12/11/2016 SHER DEAN MD Ot R07.9 CHEST PAIN, UNSPECIFIED 12/11/2016 KEEGAN SIFUENTES DOIC B Ot C25.9 MALIGNANT NEOPLASM OF PANCREAS, UNSPECIF 12/11/2016 KEEGAN SIFUENTES DOIC B Ot E03.9 HYPOTHYROIDISM, UNSPECIFIED 12/11/2016 KEEGAN SIFUENTES DOIC B Ot F32.9 MAJOR DEPRESSIVE DISORDER, SINGLE EPISOD 12/11/2016 KEEGAN SIFUENTES DOIC B Ot I87.2 VENOUS INSUFFICIENCY (CHRONIC) (PERIPHER 12/11/2016 ANN SIFUENTES DO B Ot Z79.899 OTHER PENITENTIARY (CURRENT) DRUG THERAPY 12/13/2016 SHER DEAN MD Ot R00.2 PALPITATIONS 12/13/2016 SHER DEAN MD Ot R07.9 CHEST PAIN, UNSPECIFIED 12/20/2016 SKY, BOBAN N Ot C25.9 MALIGNANT NEOPLASM OF PANCREAS, UNSPECIF 12/20/2016 SKY, BOBAN N Ot R93.8 ABNORMAL FINDINGS ON DIAGNOSTIC IMAGING 01/08/2017 SKY BOBAN N Ot 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 01/08/2017 SKY, BOBAN N Ot E03.9 HYPOTHYROIDISM, UNSPECIFIED 01/08/2017 SKY, BOBAN N Ot Z79.899 OTHER PENITENTIARY (CURRENT) DRUG THERAPY 02/15/2017 SKY BOBAN N Ot 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 02/15/2017 SKY, BOBAN N Ot E03.9 HYPOTHYROIDISM, UNSPECIFIED 02/15/2017 SKY, BOBAN N Ot E86.0 DEHYDRATION 02/15/2017 SKY, BOBAN N Ot E87.6 HYPOKALEMIA 02/15/2017 SKY BOBAN N Ot F32.9 MAJOR DEPRESSIVE DISORDER, SINGLE EPISOD 02/15/2017 SKY BOBAN N Ot K59.00 CONSTIPATION, UNSPECIFIED 02/15/2017 SKY, BOBAN N Ot R19.7 DIARRHEA, UNSPECIFIED 02/15/2017 SKY, BOBAN N Ot Z51.11 ENCOUNTER FOR ANTINEOPLASTIC CHEMOTHERAP 02/15/2017 JT SWANSON N Ot Z79.899 OTHER PENITENTIARY (CURRENT) DRUG THERAPY 02/21/2017 JT SWANSON Ot 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 02/21/2017 JT SWANSON Ot E03.9 HYPOTHYROIDISM, UNSPECIFIED 02/21/2017 JT SWANSON N Ot F32.9 MAJOR DEPRESSIVE DISORDER, SINGLE EPISOD 02/21/2017 JT SWANSON N Ot Z23 ENCOUNTER FOR IMMUNIZATION 02/21/2017 JT SWANSON N Ot Z51.11 ENCOUNTER FOR ANTINEOPLASTIC CHEMOTHERAP 02/21/2017 JT SWANSON N Ot Z79.899 OTHER BUILDING SERVICES SUPERVISOR (CURRENT) DRUG THERAPY 03/06/2017 JT SWANSON Ot 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 03/06/2017 JT SWANSON Ot E03.9 HYPOTHYROIDISM, UNSPECIFIED 03/06/2017 JT SWANSON Ot F32.9 MAJOR DEPRESSIVE DISORDER, SINGLE EPISOD 03/06/2017 JT SWANSON N Ot Z23 ENCOUNTER FOR IMMUNIZATION 03/06/2017 JT SWANSON N Ot Z51.11 ENCOUNTER FOR ANTINEOPLASTIC CHEMOTHERAP 03/06/2017 SKYJT OZUNA N Ot Z79.899 OTHER PENITENTIARY (CURRENT) DRUG THERAPY 03/10/2017 ALLI PANIAGUA MD Ot 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 03/10/2017 ALLI PANIAGUA MD Ot E03.9 HYPOTHYROIDISM, UNSPECIFIED 03/10/2017 ALLI PANIAGUA MD Ot F32.9 MAJOR DEPRESSIVE DISORDER, SINGLE EPISOD 03/10/2017 ALLI PANIAGUA MD Ot Z51.11 ENCOUNTER FOR ANTINEOPLASTIC CHEMOTHERAP 03/10/2017 ALLI PANIAGUA MD Ot Z79.899 OTHER BUILDING SERVICES SUPERVISOR (CURRENT) DRUG THERAPY 04/09/2017 ALLI PANIAGUA MD Ot 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 04/09/2017 ALLI PANIAGUA MD Ot E03.9 HYPOTHYROIDISM, UNSPECIFIED 04/09/2017 ALLI PANIAGUA MD Ot F32.9 MAJOR DEPRESSIVE DISORDER, SINGLE EPISOD 04/09/2017 ALLI PANIAGUA MD Ot Z51.11 ENCOUNTER FOR ANTINEOPLASTIC CHEMOTHERAP 04/09/2017 ALLI PANIAGUA MD Ot Z79.899 OTHER PENITENTIARY (CURRENT) DRUG THERAPY 05/02/2017 ALLI PANIAGUA MD Ot 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 05/02/2017 ALLI PANIAGUA MD Ot E03.9 HYPOTHYROIDISM, UNSPECIFIED 05/02/2017 ALLI PANIAGUA MD, Ot F32.9 MAJOR DEPRESSIVE DISORDER, SINGLE EPISOD 05/02/2017 ALLI PANIAGUA MD Ot Z51.11 ENCOUNTER FOR ANTINEOPLASTIC CHEMOTHERAP 05/02/2017 ALLI PANIAGUA MD Ot Z79.899 OTHER PENITENTIARY (CURRENT) DRUG THERAPY 05/02/2017 SKY BOBAN N Ot 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 05/02/2017 SKYJORGEAN N Ot E03.9 HYPOTHYROIDISM, UNSPECIFIED 05/02/2017 SKY BOBAN N Ot F32.9 MAJOR DEPRESSIVE DISORDER, SINGLE EPISOD 05/02/2017 SKY BOBAN N Ot Z51.11 ENCOUNTER FOR ANTINEOPLASTIC CHEMOTHERAP 05/02/2017 SKY, BOBAN N Ot Z79.899 OTHER PENITENTIARY (CURRENT) DRUG THERAPY 05/02/2017 SKY, BOBAN N Ot 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 05/02/2017 SKY BOBAN N Ot E03.9 HYPOTHYROIDISM, UNSPECIFIED 05/02/2017 SKY BOBAN N Ot F32.9 MAJOR DEPRESSIVE DISORDER, SINGLE EPISOD 05/02/2017 SKY, BOBAN N Ot Z51.11 ENCOUNTER FOR ANTINEOPLASTIC CHEMOTHERAP 05/02/2017 SKY, BOBAN N Ot Z79.899 OTHER BUILDING SERVICES SUPERVISOR (CURRENT) DRUG THERAPY 05/14/2017 SKY, BOBAN N Ot 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 05/14/2017 SKY BOBAN N Ot E03.9 HYPOTHYROIDISM, UNSPECIFIED 05/14/2017 SKY BOBAN N Ot F32.9 MAJOR DEPRESSIVE DISORDER, SINGLE EPISOD 05/14/2017 SKY BOBAN N Ot Z51.11 ENCOUNTER FOR ANTINEOPLASTIC CHEMOTHERAP 05/14/2017 SKY BOBAN N Ot Z79.899 OTHER BUILDING SERVICES SUPERVISOR (CURRENT) DRUG THERAPY 05/15/2017 ALLI PANIAGUA MD Ot 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 05/15/2017 ALLI PANIAGUA MD Ot K59.09 OTHER CONSTIPATION 05/21/2017 SKY, BOBAN N Ot 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 05/21/2017 SKY, BOBAN N Ot E03.9 HYPOTHYROIDISM, UNSPECIFIED 05/21/2017 SKY, BOBAN N Ot F32.9 MAJOR DEPRESSIVE DISORDER, SINGLE EPISOD 05/21/2017 SKY, BOBAN N Ot Z51.11 ENCOUNTER FOR ANTINEOPLASTIC CHEMOTHERAP 05/21/2017 SKY, BOBAN N Ot Z79.899 OTHER PENITENTIARY (CURRENT) DRUG THERAPY 05/21/2017 DIANNE HUBER, SHER Robbins Ot V72.84 EXAM PRE-OPERATIVE NOS 05/21/2017 CRIS HUBER, MEDINA Sanders Ot 448.1 NEVUS, NON-NEOPLASTIC 05/21/2017 CRIS HUBER, MEDINA Sanders Ot 709.9 SKIN DISORDER NOS 05/21/2017 CRIS HUBER, MEDINA Sanders Ot V72.84 EXAM PRE-OPERATIVE NOS 05/21/2017 SKY BOBAN N Ot 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 05/21/2017 SKY, BOBAN N Ot E03.9 HYPOTHYROIDISM, UNSPECIFIED 05/21/2017 SKY, BOBAN N Ot F32.9 MAJOR DEPRESSIVE DISORDER, SINGLE EPISOD 05/21/2017 SKY, BOBAN N Ot Z51.11 ENCOUNTER FOR ANTINEOPLASTIC CHEMOTHERAP 05/21/2017 SKY, BOBAN N Ot Z79.899 OTHER PENITENTIARY (CURRENT) DRUG THERAPY 06/17/2017 SKY, BOBAN N Ot 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 06/17/2017 SKY, BOBAN N Ot E03.9 HYPOTHYROIDISM, UNSPECIFIED 06/17/2017 SKY, BOBAN N Ot F32.9 MAJOR DEPRESSIVE DISORDER, SINGLE EPISOD 06/17/2017 SKY, BOBAN N Ot Z51.11 ENCOUNTER FOR ANTINEOPLASTIC CHEMOTHERAP 06/17/2017 SKY, BOBAN N Ot Z79.899 OTHER PENITENTIARY (CURRENT) DRUG THERAPY 06/25/2017 SKY, BOBAN N Ot 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 06/25/2017 SKY, BOBAN N Ot E03.9 HYPOTHYROIDISM, UNSPECIFIED 06/25/2017 SKY, BOBAN N Ot F32.9 MAJOR DEPRESSIVE DISORDER, SINGLE EPISOD 06/25/2017 SKY, BOBAN N Ot Z51.11 ENCOUNTER FOR ANTINEOPLASTIC CHEMOTHERAP 06/25/2017 SKYJORGE OZUNAAN N Ot Z79.899 OTHER PENITENTIARY (CURRENT) DRUG THERAPY 07/22/2017 JT SWANSON N Ot 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 07/22/2017 JT SWANOSN N Ot E03.9 HYPOTHYROIDISM, UNSPECIFIED 07/22/2017 SKYJT OZUNA N Ot F32.9 MAJOR DEPRESSIVE DISORDER, SINGLE EPISOD 07/22/2017 SKYJT N Ot Z51.11 ENCOUNTER FOR ANTINEOPLASTIC CHEMOTHERAP 07/22/2017 SKYJORGEAN N Ot Z79.899 OTHER PENITENTIARY (CURRENT) DRUG THERAPY 07/24/2017 JT SWANSON N Ot 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 07/24/2017 JT SWANSON N Ot E03.9 HYPOTHYROIDISM, UNSPECIFIED 07/24/2017 SKYJT OZUNA N Ot F32.9 MAJOR DEPRESSIVE DISORDER, SINGLE EPISOD 07/24/2017 SKYJT OZUNA N Ot Z51.11 ENCOUNTER FOR ANTINEOPLASTIC CHEMOTHERAP 07/24/2017 JT SWANSON N Ot Z79.899 OTHER BUILDING SERVICES SUPERVISOR (CURRENT) DRUG THERAPY 08/14/2017 DIANNE HUBER, SHER D Ot V72.84 EXAM PRE-OPERATIVE NOS 08/14/2017 CRIS HUBER, MEDINA Sanders Ot 448.1 NEVUS, NON-NEOPLASTIC 08/14/2017 CRIS HUBER, MEDINA Sanders Ot 709.9 SKIN DISORDER NOS 08/14/2017 CRIS HUBER, MEDINA Sanders Ot V72.84 EXAM PRE-OPERATIVE NOS 08/14/2017 JT SWANSON N Ot 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 08/14/2017 SKYJT N Ot E03.9 HYPOTHYROIDISM, UNSPECIFIED 08/14/2017 SKYJT N Ot F32.9 MAJOR DEPRESSIVE DISORDER, SINGLE EPISOD 08/14/2017 SKY BOBKALEY N Ot Z51.11 ENCOUNTER FOR ANTINEOPLASTIC CHEMOTHERAP 08/14/2017 SKY BOBKALEY N Ot Z79.899 OTHER BUILDING SERVICES SUPERVISOR (CURRENT) DRUG THERAPY 08/18/2017 JT SWANSON N Ot 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 08/18/2017 JT SWANSON N Ot K76.0 FATTY (CHANGE OF) LIVER, NOT ELSEWHERE C 08/18/2017 JT SWANSON Ot K76.89 OTHER SPECIFIED DISEASES OF LIVER 08/19/2017 JT SWANSON Arron Ot 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 08/19/2017 JT SWANSON Ot E03.9 HYPOTHYROIDISM, UNSPECIFIED 08/19/2017 JT SWANSON N Ot F32.9 MAJOR DEPRESSIVE DISORDER, SINGLE EPISOD 08/19/2017 JT SWANSON N Ot Z45.2 ENCOUNTER FOR ADJUSTMENT AND MANAGEMENT 08/19/2017 JT SWANSON N Ot Z51.11 ENCOUNTER FOR ANTINEOPLASTIC CHEMOTHERAP 08/19/2017 JT SWANSON N Ot Z79.899 OTHER PENITENTIARY (CURRENT) DRUG THERAPY 08/19/2017 JT SWANSON N Ot 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 08/19/2017 JT SWANSON Arron Ot M79.602 PAIN IN LEFT ARM 08/19/2017 JT SWANSON N Ot R22.32 LOCALIZED SWELLING, MASS AND LUMP, LEFT 08/20/2017 JT SWANSON N Ot 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 08/20/2017 JT SWANSON N Ot E03.9 HYPOTHYROIDISM, UNSPECIFIED 08/20/2017 JT SWANSON N Ot F32.9 MAJOR DEPRESSIVE DISORDER, SINGLE EPISOD 08/20/2017 JT SWANSON N Ot Z45.2 ENCOUNTER FOR ADJUSTMENT AND MANAGEMENT 08/20/2017 JT SWANSON N Ot Z51.11 ENCOUNTER FOR ANTINEOPLASTIC CHEMOTHERAP 08/20/2017 JT SWANSON N Ot Z79.899 OTHER PENITENTIARY (CURRENT) DRUG THERAPY 09/04/2017 JT SWANSON N Ot 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 09/04/2017 JT SWANSON N Ot M79.602 PAIN IN LEFT ARM 09/04/2017 JT SWANSON N Ot R22.32 LOCALIZED SWELLING, MASS AND LUMP, LEFT 09/12/2017 JT SWANSON N Ot 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 09/12/2017 JT SWANSON N Ot E03.9 HYPOTHYROIDISM, UNSPECIFIED 09/12/2017 JT SWANSON N Ot F32.9 MAJOR DEPRESSIVE DISORDER, SINGLE EPISOD 09/12/2017 JT SWANSON N Ot Z51.11 ENCOUNTER FOR ANTINEOPLASTIC CHEMOTHERAP 09/12/2017 JT SWANSON N Ot Z79.899 OTHER PENITENTIARY (CURRENT) DRUG THERAPY 09/12/2017 JT SWANSON N Ot 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 09/12/2017 JT SWANSON N Ot E03.9 HYPOTHYROIDISM, UNSPECIFIED 09/12/2017 JT SWANSON N Ot F32.9 MAJOR DEPRESSIVE DISORDER, SINGLE EPISOD 09/12/2017 SKYJT OZUNA N Ot Z51.11 ENCOUNTER FOR ANTINEOPLASTIC CHEMOTHERAP 09/12/2017 JT SWANSON N Ot Z79.899 OTHER BUILDING SERVICES SUPERVISOR (CURRENT) DRUG THERAPY 09/16/2017 JT SWANSON N Ot 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 09/16/2017 JT SWANSON N Ot E03.9 HYPOTHYROIDISM, UNSPECIFIED 09/16/2017 SKYJT OZUNA N Ot F32.9 MAJOR DEPRESSIVE DISORDER, SINGLE EPISOD 09/16/2017 SKYJT OZUNA N Ot Z51.11 ENCOUNTER FOR ANTINEOPLASTIC CHEMOTHERAP 09/16/2017 JT SWANSON N Ot Z79.899 OTHER BUILDING SERVICES SUPERVISOR (CURRENT) DRUG THERAPY 09/17/2017 JT SWANSON N Ot 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 09/17/2017 JT SWANSON N Ot K76.0 FATTY (CHANGE OF) LIVER, NOT ELSEWHERE C 09/17/2017 JT SWANSON N Ot K76.89 OTHER SPECIFIED DISEASES OF LIVER 09/24/2017 JT SWANSON N Ot 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 09/24/2017 JT SWANSON N Ot E03.9 HYPOTHYROIDISM, UNSPECIFIED 09/24/2017 SKYJT OZUNA N Ot F32.9 MAJOR DEPRESSIVE DISORDER, SINGLE EPISOD 09/24/2017 SKYJT OZUNA N Ot Z51.11 ENCOUNTER FOR ANTINEOPLASTIC CHEMOTHERAP 09/24/2017 JT SWANSON N Ot Z79.899 OTHER BUILDING SERVICES SUPERVISOR (CURRENT) DRUG THERAPY 10/15/2017 SKYJT OZUNA N Ot 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 10/30/2017 SKYJT OZUNA N Ot 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 10/30/2017 JT SWANSON N Ot E03.9 HYPOTHYROIDISM, UNSPECIFIED 10/30/2017 SKYJT N Ot F32.9 MAJOR DEPRESSIVE DISORDER, SINGLE EPISOD 10/30/2017 SKYJT OZUNA N Ot Z51.11 ENCOUNTER FOR ANTINEOPLASTIC CHEMOTHERAP 10/30/2017 JT SWANSON N Ot Z79.899 OTHER PENITENTIARY (CURRENT) DRUG THERAPY 10/30/2017 SKYJT OZUNA N Ot 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 11/11/2017 SKYJT N Ot 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 11/11/2017 SKYJT OZUNA N Ot E03.9 HYPOTHYROIDISM, UNSPECIFIED 11/11/2017 SKYJT OZUNA N Ot F32.9 MAJOR DEPRESSIVE DISORDER, SINGLE EPISOD 11/11/2017 SKYJT OZUNA N Ot Z51.11 ENCOUNTER FOR ANTINEOPLASTIC CHEMOTHERAP 11/11/2017 SKYJORGE OZUNAAN N Ot Z79.899 OTHER PENITENTIARY (CURRENT) DRUG THERAPY 11/24/2017 SKYJT OZUNA N Ot 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 11/24/2017 SKYJT OZUNA N Ot E03.9 HYPOTHYROIDISM, UNSPECIFIED 11/24/2017 SKYJT OZUNA N Ot F32.9 MAJOR DEPRESSIVE DISORDER, SINGLE EPISOD 11/24/2017 SKYJT OZUNA N Ot Z51.11 ENCOUNTER FOR ANTINEOPLASTIC CHEMOTHERAP 11/24/2017 SKYJT OZUNA N Ot Z79.899 OTHER PENITENTIARY (CURRENT) DRUG THERAPY 11/25/2017 SKYJT OZUNA N Ot 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 11/25/2017 SKYJT N Ot E03.9 HYPOTHYROIDISM, UNSPECIFIED 11/25/2017 SKYJT N Ot F32.9 MAJOR DEPRESSIVE DISORDER, SINGLE EPISOD 11/25/2017 SKYJT N Ot Z51.11 ENCOUNTER FOR ANTINEOPLASTIC CHEMOTHERAP 11/25/2017 SKYJORGEAN N Ot Z79.899 OTHER BUILDING SERVICES SUPERVISOR (CURRENT) DRUG THERAPY 12/09/2017 SKYJT N Ot 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 12/09/2017 SKYJT N Ot E03.9 HYPOTHYROIDISM, UNSPECIFIED 12/09/2017 JT SWANSON N Ot F32.9 MAJOR DEPRESSIVE DISORDER, SINGLE EPISOD 12/09/2017 JT SWANSON N Ot Z51.11 ENCOUNTER FOR ANTINEOPLASTIC CHEMOTHERAP 12/09/2017 JT SWANSON N Ot Z79.899 OTHER BUILDING SERVICES SUPERVISOR (CURRENT) DRUG THERAPY 01/05/2018 JT SWANSON N Ot 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 01/16/2018 JT SWANSON N Ot 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 01/30/2018 DIANNE HUBER, SHER Robbins Ot V72.84 EXAM PRE-OPERATIVE NOS 01/30/2018 CRIS HUBER, MEDINA Sanders Ot 448.1 NEVUS, NON-NEOPLASTIC 01/30/2018 CRIS HUBER, MEDINA Sanders Ot 709.9 SKIN DISORDER NOS 01/30/2018 CRIS HUBER, MEDINA Sanders Ot V72.84 EXAM PRE-OPERATIVE NOS 01/30/2018 JT SWANSON N Ot 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 01/30/2018 JT SWANSON N Ot K76.0 FATTY (CHANGE OF) LIVER, NOT ELSEWHERE C 01/30/2018 JT SWANSON N Ot K76.89 OTHER SPECIFIED DISEASES OF LIVER 01/30/2018 Ot N30.01 ACUTE CYSTITIS WITH HEMATURIA 01/30/2018 JT SWANSON N Ot 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 01/30/2018 JT SWANSON N Ot M79.602 PAIN IN LEFT ARM 01/30/2018 JT SWANSON N Ot R22.32 LOCALIZED SWELLING, MASS AND LUMP, LEFT 01/30/2018 JT SWANSON N Ot 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 01/30/2018 JT SWANSON N Ot 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 01/30/2018 JT SWANSON N Ot E03.9 HYPOTHYROIDISM, UNSPECIFIED 01/30/2018 JT SWANSON N Ot F32.9 MAJOR DEPRESSIVE DISORDER, SINGLE EPISOD 01/30/2018 JT SWANSON N Ot Z51.11 ENCOUNTER FOR ANTINEOPLASTIC CHEMOTHERAP 01/30/2018 JT SWANSON N Ot Z79.899 OTHER PENITENTIARY (CURRENT) DRUG THERAPY 01/30/2018 JT SWANSON N Ot 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 02/10/2018 JT SWANSON N Ot 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 02/10/2018 JT SWANSON Ot E03.9 HYPOTHYROIDISM, UNSPECIFIED 02/10/2018 JT SWANSON N Ot F32.9 MAJOR DEPRESSIVE DISORDER, SINGLE EPISOD 02/10/2018 JT SWANSON N Ot Z51.11 ENCOUNTER FOR ANTINEOPLASTIC CHEMOTHERAP 02/10/2018 JT SWANSON N Ot Z79.899 OTHER BUILDING SERVICES SUPERVISOR (CURRENT) DRUG THERAPY 02/17/2018 JT SWANSON N Ot 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 02/17/2018 JT SWANSON N Ot E03.9 HYPOTHYROIDISM, UNSPECIFIED 02/17/2018 JT SWANSON N Ot F32.9 MAJOR DEPRESSIVE DISORDER, SINGLE EPISOD 02/17/2018 JT SWANSON N Ot Z51.11 ENCOUNTER FOR ANTINEOPLASTIC CHEMOTHERAP 02/17/2018 JT SWANSON N Ot Z79.899 OTHER BUILDING SERVICES SUPERVISOR (CURRENT) DRUG THERAPY 02/17/2018 DIANNE HUBER, SHER D Ot V72.84 EXAM PRE-OPERATIVE NOS 02/17/2018 CRIS HUBER, MEDINA Sanders Ot 448.1 NEVUS, NON-NEOPLASTIC 02/17/2018 CRIS HUBER, MEDINA Sanders Ot 709.9 SKIN DISORDER NOS 02/17/2018 CRIS HUBER, MEDINA Sanders Ot V72.84 EXAM PRE-OPERATIVE NOS 02/17/2018 JT SWANSON N Ot 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 02/17/2018 JT SWANSON Arron Ot K76.0 FATTY (CHANGE OF) LIVER, NOT ELSEWHERE C 02/17/2018 JT SWANSON N Ot K76.89 OTHER SPECIFIED DISEASES OF LIVER 02/17/2018 Ot N30.01 ACUTE CYSTITIS WITH HEMATURIA 02/17/2018 JT SWANSON N Ot 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 02/17/2018 JT SWANSON N Ot M79.602 PAIN IN LEFT ARM 02/17/2018 JT SWANSON N Ot R22.32 LOCALIZED SWELLING, MASS AND LUMP, LEFT 02/17/2018 JT SWANSON N Ot 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 02/17/2018 JT SWANSON N Ot 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 02/17/2018 JT SWANSON N Ot 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 02/17/2018 JT SWANSON N Ot E03.9 HYPOTHYROIDISM, UNSPECIFIED 02/17/2018 JT SWANSON N Ot F32.9 MAJOR DEPRESSIVE DISORDER, SINGLE EPISOD 02/17/2018 JT SWANSON N Ot Z51.11 ENCOUNTER FOR ANTINEOPLASTIC CHEMOTHERAP 02/17/2018 JT SWANSON N Ot Z79.899 OTHER BUILDING SERVICES SUPERVISOR (CURRENT) DRUG THERAPY 02/18/2018 DIANNE HUBER, SHER Robbins Ot V72.84 EXAM PRE-OPERATIVE NOS 02/18/2018 CRIS HUBER, MEDINA Sanders Ot 448.1 NEVUS, NON-NEOPLASTIC 02/18/2018 CRIS HUBER, MEDINA Sanders Ot 709.9 SKIN DISORDER NOS 02/18/2018 CRIS HUBER, MEDINA Sanders Ot V72.84 EXAM PRE-OPERATIVE NOS 02/18/2018 JT SWANSON Arron Ot 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 02/18/2018 JT SWANSON N Ot K76.0 FATTY (CHANGE OF) LIVER, NOT ELSEWHERE C 02/18/2018 JT SWANSON N Ot K76.89 OTHER SPECIFIED DISEASES OF LIVER 02/18/2018 Ot N30.01 ACUTE CYSTITIS WITH HEMATURIA 02/18/2018 JT SWANSON N Ot 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 02/18/2018 JT SWANSON N Ot M79.602 PAIN IN LEFT ARM 02/18/2018 JT SWANSON N Ot R22.32 LOCALIZED SWELLING, MASS AND LUMP, LEFT 02/18/2018 JT SWANSON N Ot 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 02/18/2018 JT SWANSON N Ot 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 02/18/2018 JT SWANSON N Ot 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 02/18/2018 JT SWANSON N Ot E03.9 HYPOTHYROIDISM, UNSPECIFIED 02/18/2018 JT SWANSON N Ot F32.9 MAJOR DEPRESSIVE DISORDER, SINGLE EPISOD 02/18/2018 JT SWANSON N Ot Z51.11 ENCOUNTER FOR ANTINEOPLASTIC CHEMOTHERAP 02/18/2018 JT SWANSON N Ot Z79.899 OTHER PENITENTIARY (CURRENT) DRUG THERAPY 03/10/2018 JT SWANSON N Ot 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 03/10/2018 JT SWANSON N Ot E03.9 HYPOTHYROIDISM, UNSPECIFIED 03/10/2018 JT SWANSON N Ot F32.9 MAJOR DEPRESSIVE DISORDER, SINGLE EPISOD 03/10/2018 JT SWANSON N Ot Z51.11 ENCOUNTER FOR ANTINEOPLASTIC CHEMOTHERAP 03/10/2018 JT SWANSON N Ot Z79.899 OTHER BUILDING SERVICES SUPERVISOR (CURRENT) DRUG THERAPY 03/12/2018 JT SWANSON N Ot 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 03/12/2018 JT SWANSON N Ot E03.9 HYPOTHYROIDISM, UNSPECIFIED 03/12/2018 JT SWANSON N Ot F32.9 MAJOR DEPRESSIVE DISORDER, SINGLE EPISOD 03/12/2018 JT SWANSON N Ot Z51.11 ENCOUNTER FOR ANTINEOPLASTIC CHEMOTHERAP 03/12/2018 JT SWANSON N Ot Z79.899 OTHER BUILDING SERVICES SUPERVISOR (CURRENT) DRUG THERAPY 03/27/2018 DIANNE HUBER, SHER Robbins Ot V72.84 EXAM PRE-OPERATIVE NOS 03/27/2018 CRIS HUBER, MEDINA Sanders Ot 448.1 NEVUS, NON-NEOPLASTIC 03/27/2018 CRIS HUBER, MEDINA Sanders Ot 709.9 SKIN DISORDER NOS 03/27/2018 CRIS HUBER, MEDINA Sanders Ot V72.84 EXAM PRE-OPERATIVE NOS 03/27/2018 JT SWANSON N Ot 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 03/27/2018 JT SWANSON N Ot K76.0 FATTY (CHANGE OF) LIVER, NOT ELSEWHERE C 03/27/2018 JT SWANSON N Ot K76.89 OTHER SPECIFIED DISEASES OF LIVER 03/27/2018 Ot N30.01 ACUTE CYSTITIS WITH HEMATURIA 03/27/2018 JT SWANSON N Ot 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 03/27/2018 JT SWANSON N Ot M79.602 PAIN IN LEFT ARM 03/27/2018 JT SWANSON N Ot R22.32 LOCALIZED SWELLING, MASS AND LUMP, LEFT 03/27/2018 JT SWANSON N Ot 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 03/27/2018 SKYJT N Ot 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 03/27/2018 SKYJT N Ot 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 03/27/2018 SKYJT N Ot E03.9 HYPOTHYROIDISM, UNSPECIFIED 03/27/2018 SKYJT N Ot F32.9 MAJOR DEPRESSIVE DISORDER, SINGLE EPISOD 03/27/2018 SKYJT N Ot Z51.11 ENCOUNTER FOR ANTINEOPLASTIC CHEMOTHERAP 03/27/2018 SKY BOBAN N Ot Z79.899 OTHER PENITENTIARY (CURRENT) DRUG THERAPY 04/02/2018 HENRIK CHAMP Autumn MANAGER PRIVATE Ot 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 04/14/2018 SKYJT N Ot 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 04/14/2018 SKYJT N Ot E03.9 HYPOTHYROIDISM, UNSPECIFIED 04/14/2018 SKYJT OZUNA N Ot F32.9 MAJOR DEPRESSIVE DISORDER, SINGLE EPISOD 04/14/2018 SKYJORGEAN N Ot Z51.11 ENCOUNTER FOR ANTINEOPLASTIC CHEMOTHERAP 04/14/2018 SKY BOBAN N Ot Z79.899 OTHER PENITENTIARY (CURRENT) DRUG THERAPY 05/13/2018 SKYJT OZUNA N Ot 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 05/13/2018 SKYJT N Ot E03.9 HYPOTHYROIDISM, UNSPECIFIED 05/13/2018 SKYJT OZUNA N Ot F32.9 MAJOR DEPRESSIVE DISORDER, SINGLE EPISOD 05/13/2018 SKYJT N Ot Z51.11 ENCOUNTER FOR ANTINEOPLASTIC CHEMOTHERAP 05/13/2018 SKY BOBAN N Ot Z79.899 OTHER PENITENTIARY (CURRENT) DRUG THERAPY 05/16/2018 SKYJT N Ot 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 05/16/2018 SKYJT N Ot E03.9 HYPOTHYROIDISM, UNSPECIFIED 05/16/2018 SKY BOBAN N Ot F32.9 MAJOR DEPRESSIVE DISORDER, SINGLE EPISOD 05/16/2018 SKY BOBAN N Ot Z51.11 ENCOUNTER FOR ANTINEOPLASTIC CHEMOTHERAP 05/16/2018 SKY BOBAN N Ot Z79.899 OTHER PENITENTIARY (CURRENT) DRUG THERAPY 05/18/2018 JT SWANSON N Ot 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 05/18/2018 JT SWANSON N Ot E03.9 HYPOTHYROIDISM, UNSPECIFIED 05/18/2018 JT SWANSON N Ot F32.9 MAJOR DEPRESSIVE DISORDER, SINGLE EPISOD 05/18/2018 JT SWANSON N Ot Z51.11 ENCOUNTER FOR ANTINEOPLASTIC CHEMOTHERAP 05/18/2018 JT SWANSON N Ot Z79.899 OTHER BUILDING SERVICES SUPERVISOR (CURRENT) DRUG THERAPY 05/18/2018 DIANNE HUBER, SHER Robbins Ot V72.84 EXAM PRE-OPERATIVE NOS 05/18/2018 CRIS HUBER, MEDINA Sanders Ot 448.1 NEVUS, NON-NEOPLASTIC 05/18/2018 CRIS HUBER, MEDINA Sanders Ot 709.9 SKIN DISORDER NOS 05/18/2018 CRIS HUBER, MEDINA Sanders Ot V72.84 EXAM PRE-OPERATIVE NOS 05/18/2018 JT SWANSON N Ot 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 05/18/2018 JT SWANSON N Ot K76.0 FATTY (CHANGE OF) LIVER, NOT ELSEWHERE C 05/18/2018 JT SWANSON N Ot K76.89 OTHER SPECIFIED DISEASES OF LIVER 05/18/2018 Ot N30.01 ACUTE CYSTITIS WITH HEMATURIA 05/18/2018 JT SWANSON N Ot 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 05/18/2018 JT SWANSON N Ot M79.602 PAIN IN LEFT ARM 05/18/2018 JT SWANSON N Ot R22.32 LOCALIZED SWELLING, MASS AND LUMP, LEFT 05/18/2018 JT SWANSON N Ot 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 05/18/2018 JT SWANSON N Ot 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 05/18/2018 JT SWANSON N Ot 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 05/18/2018 JT SWANSON N Ot E03.9 HYPOTHYROIDISM, UNSPECIFIED 05/18/2018 JT SWANSON N Ot F32.9 MAJOR DEPRESSIVE DISORDER, SINGLE EPISOD 05/18/2018 JT SWANSON N Ot Z51.11 ENCOUNTER FOR ANTINEOPLASTIC CHEMOTHERAP 05/18/2018 JT SWANSON N Ot Z79.899 OTHER PENITENTIARY (CURRENT) DRUG THERAPY 05/18/2018 CHAMP CHESTER MANAGER PRIVATE Ot 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 05/20/2018 CHAMP CHESTER MANAGER PRIVATE Ot 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 05/20/2018 CHAMP CHESTER MANAGER PRIVATE Ot R97.8 OTHER ABNORMAL TUMOR MARKERS 05/21/2018 JT SWANSON N Ot 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 05/21/2018 JT SWANSON N Ot E03.9 HYPOTHYROIDISM, UNSPECIFIED 05/21/2018 SKY BOBAN N Ot F32.9 MAJOR DEPRESSIVE DISORDER, SINGLE EPISOD 05/21/2018 SKYJORGE OZUNAAN N Ot Z51.11 ENCOUNTER FOR ANTINEOPLASTIC CHEMOTHERAP 05/21/2018 JT SWANSON N Ot Z79.899 OTHER BUILDING SERVICES SUPERVISOR (CURRENT) DRUG THERAPY 06/04/2018 CHAMP CHESTER MANAGER PRIVATE Ot 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 06/04/2018 CHESTER CHAMP Leyva MANAGER PRIVATE Ot R97.8 OTHER ABNORMAL TUMOR MARKERS 06/09/2018 JT SWANSON N Ot 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 06/09/2018 JT SWANSON N Ot E03.9 HYPOTHYROIDISM, UNSPECIFIED 06/09/2018 SKY, BOBAN N Ot F32.9 MAJOR DEPRESSIVE DISORDER, SINGLE EPISOD 06/09/2018 SKY, BOBAN N Ot Z51.11 ENCOUNTER FOR ANTINEOPLASTIC CHEMOTHERAP 06/09/2018 SYK, BOBAN N Ot Z79.899 OTHER PENITENTIARY (CURRENT) DRUG THERAPY 06/25/2018 SKYJT OZUNA N Ot 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 06/25/2018 SKY BOBAN N Ot E03.9 HYPOTHYROIDISM, UNSPECIFIED 06/25/2018 SKY BOBAN N Ot F32.9 MAJOR DEPRESSIVE DISORDER, SINGLE EPISOD 06/25/2018 SKY BOBAN N Ot Z51.11 ENCOUNTER FOR ANTINEOPLASTIC CHEMOTHERAP 06/25/2018 SKY BOBAN N Ot Z79.899 OTHER BUILDING SERVICES SUPERVISOR (CURRENT) DRUG THERAPY 07/07/2018 SKYJORGEAN N Ot 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 07/07/2018 SKY BOBAN N Ot E03.9 HYPOTHYROIDISM, UNSPECIFIED 07/07/2018 JT SWANSON N Ot F32.9 MAJOR DEPRESSIVE DISORDER, SINGLE EPISOD 07/07/2018 SKYJT OZUNA N Ot Z51.11 ENCOUNTER FOR ANTINEOPLASTIC CHEMOTHERAP 07/07/2018 JT SWANSON N Ot Z79.899 OTHER PENITENTIARY (CURRENT) DRUG THERAPY 07/09/2018 JT SWANSON N Ot 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 07/09/2018 JT SWANSON N Ot E03.9 HYPOTHYROIDISM, UNSPECIFIED 07/09/2018 JT SWANSON N Ot F32.9 MAJOR DEPRESSIVE DISORDER, SINGLE EPISOD 07/09/2018 SKYJT OZUNA N Ot Z51.11 ENCOUNTER FOR ANTINEOPLASTIC CHEMOTHERAP 07/09/2018 JT SWANSON N Ot Z79.899 OTHER PENITENTIARY (CURRENT) DRUG THERAPY 07/10/2018 JT SWANSON N Ot 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 07/10/2018 JT SWANSON N Ot E03.9 HYPOTHYROIDISM, UNSPECIFIED 07/10/2018 JT SWANSON N Ot F32.9 MAJOR DEPRESSIVE DISORDER, SINGLE EPISOD 07/10/2018 JT SWANSON N Ot Z51.11 ENCOUNTER FOR ANTINEOPLASTIC CHEMOTHERAP 07/10/2018 JT SWANSON N Ot Z79.899 OTHER PENITENTIARY (CURRENT) DRUG THERAPY 08/03/2018 JT SWANSON N Ot 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 08/03/2018 JT SWANSON N Ot E03.9 HYPOTHYROIDISM, UNSPECIFIED 08/03/2018 JT SWANSON N Ot F32.9 MAJOR DEPRESSIVE DISORDER, SINGLE EPISOD 08/03/2018 JT SWANSON N Ot Z51.11 ENCOUNTER FOR ANTINEOPLASTIC CHEMOTHERAP 08/03/2018 JT SWANSON N Ot Z79.899 OTHER PENITENTIARY (CURRENT) DRUG THERAPY 08/11/2018 CHAMP CHESTER MANAGER PRIVATE Ot 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 08/11/2018 CHAMP CHESTER MANAGER PRIVATE Ot N89.9 NONINFLAMMATORY DISORDER OF VAGINA, UNSP 08/11/2018 CHAMP CHESTER MANAGER PRIVATE Ot Z01.89 ENCOUNTER FOR OTHER SPECIFIED SPECIAL EX 08/18/2018 SKYJT OZUNA N Ot 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 08/18/2018 SKYJT N Ot C78.7 SECONDARY MALIG NEOPLASM OF LIVER AND IN 08/18/2018 SKYJT N Ot 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 08/18/2018 SKYTJ N Ot E03.9 HYPOTHYROIDISM, UNSPECIFIED 08/18/2018 SKYJT N Ot F32.9 MAJOR DEPRESSIVE DISORDER, SINGLE EPISOD 08/18/2018 JT SWANSON N Ot T45.1X5A ADVERSE EFFECT OF ANTINEOPLASTIC AND IMM 08/18/2018 JT SWANSON N Ot Z51.11 ENCOUNTER FOR ANTINEOPLASTIC CHEMOTHERAP 08/18/2018 JT SWANSON N Ot Z79.899 OTHER BUILDING SERVICES SUPERVISOR (CURRENT) DRUG THERAPY 08/18/2018 JT SWANSON N Ot 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 08/18/2018 JT SWANSON N Ot E03.9 HYPOTHYROIDISM, UNSPECIFIED 08/18/2018 SKYJT OZUNA N Ot F32.9 MAJOR DEPRESSIVE DISORDER, SINGLE EPISOD 08/18/2018 SKYJT OZUNA N Ot Z51.11 ENCOUNTER FOR ANTINEOPLASTIC CHEMOTHERAP 08/18/2018 SKYJT N Ot Z79.899 OTHER BUILDING SERVICES SUPERVISOR (CURRENT) DRUG THERAPY 08/19/2018 JT SWANSON N Ot 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 08/19/2018 JT SWANSON N Ot C78.7 SECONDARY MALIG NEOPLASM OF LIVER AND IN 08/19/2018 JT SWANSON N Ot 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 08/19/2018 SKYJT N Ot E03.9 HYPOTHYROIDISM, UNSPECIFIED 08/19/2018 SKYJT N Ot F32.9 MAJOR DEPRESSIVE DISORDER, SINGLE EPISOD 08/19/2018 SKYJT N Ot T45.1X5A ADVERSE EFFECT OF ANTINEOPLASTIC AND IMM 08/19/2018 SKYJT N Ot Z51.11 ENCOUNTER FOR ANTINEOPLASTIC CHEMOTHERAP 08/19/2018 SKY BOBKALEY N Ot Z79.899 OTHER BUILDING SERVICES SUPERVISOR (CURRENT) DRUG THERAPY 08/28/2018 CHAMP CHESTER Ot 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 08/28/2018 GENIE CHESTERAH S MANAGER PRIVATE Ot N89.9 NONINFLAMMATORY DISORDER OF VAGINA, UNSP 08/28/2018 CHESTER CHAMP Leyva MANAGER PRIVATE Ot Z01.89 ENCOUNTER FOR OTHER SPECIFIED SPECIAL EX 09/29/2018 JT SWANSON Arron Ot 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 09/29/2018 JT SWANSON Arron Ot E03.9 HYPOTHYROIDISM, UNSPECIFIED 09/29/2018 SKY JORGEKALEY Arron Ot F32.9 MAJOR DEPRESSIVE DISORDER, SINGLE EPISOD 09/29/2018 JT SWANSON Arron Ot Z51.11 ENCOUNTER FOR ANTINEOPLASTIC CHEMOTHERAP 09/29/2018 JT SWANSON N Ot Z79.899 OTHER PENITENTIARY (CURRENT) DRUG THERAPY 10/01/2018 SKY JORGEKALEY Arron Ot 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 10/01/2018 JT SWANSON Arron Ot 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 10/01/2018 SKY JT Heller Ot K76.9 LIVER DISEASE, UNSPECIFIED 10/01/2018 SKY JORGEKALEY Arron Ot K83.8 OTHER SPECIFIED DISEASES OF BILIARY TRAC 10/01/2018 JT SWANSON Arron Ot R18.8 OTHER ASCITES 10/01/2018 JT SWANSON Arron Ot R91.8 OTHER NONSPECIFIC ABNORMAL FINDING OF DAVID 10/07/2018 DALE AMBROSE DO Ot C25.9 MALIGNANT NEOPLASM OF PANCREAS, UNSPECIF 10/07/2018 CRIS HUBER, MEDINA Sanders Ot 448.1 NEVUS, NON-NEOPLASTIC 10/07/2018 CRIS HUBER, MEDINA Sanders Ot 709.9 SKIN DISORDER NOS 10/07/2018 CRIS HUBER, MEDINA Sanders Ot V72.84 EXAM PRE-OPERATIVE NOS 10/07/2018 SKY JORGEKALEY Arron Ot 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 10/07/2018 SKY, JORGEKALEY Arron Ot K76.0 FATTY (CHANGE OF) LIVER, NOT ELSEWHERE C 10/07/2018 SKYJT Ot K76.89 OTHER SPECIFIED DISEASES OF LIVER 10/07/2018 Ot N30.01 ACUTE CYSTITIS WITH HEMATURIA 10/07/2018 SKYJT Ot 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 10/07/2018 SKYJT Ot M79.602 PAIN IN LEFT ARM 10/07/2018 JT SWANSON Arron Ot R22.32 LOCALIZED SWELLING, MASS AND LUMP, LEFT 10/07/2018 JT SWANSON Arron Ot 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 10/07/2018 JT SWANSON Arron Ot 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 10/07/2018 CHAMP CHESTER S MANAGER PRIVATE Ot 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 10/07/2018 CHAMP CHESTER S MANAGER PRIVATE Ot 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 10/07/2018 CHAMP CHESTER S MANAGER PRIVATE Ot R97.8 OTHER ABNORMAL TUMOR MARKERS 10/07/2018 CHAMP CHESTER MANAGER PRIVATE Ot 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 10/07/2018 CHAMP CHESTER MANAGER PRIVATE Ot N89.9 NONINFLAMMATORY DISORDER OF VAGINA, UNSP 10/07/2018 CHAMP CHESTER S MANAGER PRIVATE Ot Z01.89 ENCOUNTER FOR OTHER SPECIFIED SPECIAL EX 10/07/2018 JT SWANSON Arron Ot 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 10/07/2018 JT SWANSON Arron Ot E03.9 HYPOTHYROIDISM, UNSPECIFIED 10/07/2018 JT SWANSON Arron Ot F32.9 MAJOR DEPRESSIVE DISORDER, SINGLE EPISOD 10/07/2018 JT SWANSON Arron Ot Z51.11 ENCOUNTER FOR ANTINEOPLASTIC CHEMOTHERAP 10/07/2018 JT SWANSON Arron Ot Z79.899 OTHER PENITENTIARY (CURRENT) DRUG THERAPY 10/07/2018 SKY JORGEKALEY Arron Ot 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 10/07/2018 SKYJT Ot 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 10/07/2018 SKYJORGEKALEY Arron Ot K76.9 LIVER DISEASE, UNSPECIFIED 10/07/2018 SKYJT Ot K83.8 OTHER SPECIFIED DISEASES OF BILIARY TRAC 10/07/2018 SKYJT Ot R18.8 OTHER ASCITES 10/07/2018 SKYJT Ot R91.8 OTHER NONSPECIFIC ABNORMAL FINDING OF DAVID 10/07/2018 DALE AMBROSE DO Ot C25.9 MALIGNANT NEOPLASM OF PANCREAS, UNSPECIF 10/07/2018 KARAN GRIER DO Ot 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 10/07/2018 [facility], KARAN K Ot C80.1 MALIGNANT (PRIMARY) NEOPLASM, UNSPECIFIE 10/07/2018 [place] NANCIE HERNANDEZA K Ot E03.9 HYPOTHYROIDISM, UNSPECIFIED 10/07/2018 [place] DO, KARAN K Ot F32.9 MAJOR DEPRESSIVE DISORDER, SINGLE EPISOD 10/07/2018 [facility] Ot 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) 10/07/2018 [facility] KARAN K Ot Z88.8 ALLERGY STATUS TO OTH DRUG/MEDS/BIOL SUB 10/07/2018 [facility] KARAN K Ot Z90.710 ACQUIRED ABSENCE OF BOTH CERVIX AND UTER 10/07/2018 [facility] KARAN K Ot Z90.89 ACQUIRED ABSENCE OF OTHER ORGANS 10/07/2018 [facility] KARAN K Ot Z98.51 TUBAL LIGATION STATUS 10/09/2018 [facility] KARAN K Ot 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 10/09/2018 [facility], KARAN K Ot C80.1 MALIGNANT (PRIMARY) NEOPLASM, UNSPECIFIE 10/09/2018 [facility] Ot E03.9 HYPOTHYROIDISM, UNSPECIFIED 10/09/2018 [facility], KARAN K Ot F32.9 MAJOR DEPRESSIVE DISORDER, SINGLE EPISOD 10/09/2018 [facility], KARAN K Ot 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) 10/09/2018 [facility] KARAN K Ot Z88.8 ALLERGY STATUS TO OTH DRUG/MEDS/BIOL SUB 10/09/2018 [facility] KARAN K Ot Z90.710 ACQUIRED ABSENCE OF BOTH CERVIX AND UTER 10/09/2018 [facility] KARAN K Ot Z90.89 ACQUIRED ABSENCE OF OTHER ORGANS 10/09/2018 [facility] KARAN K Ot Z98.51 TUBAL LIGATION STATUS 10/15/2018 JT SWANSON Ot 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 10/15/2018 JT SWANSON Ot 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 10/15/2018 JT SWANSON Ot K76.9 LIVER DISEASE, UNSPECIFIED 10/15/2018 JT SWANSON Ot K83.8 OTHER SPECIFIED DISEASES OF BILIARY TRAC 10/15/2018 SKY JT Heller Ot R18.8 OTHER ASCITES 10/15/2018 SKY JORGEKALEY Arron Ot R91.8 OTHER NONSPECIFIC ABNORMAL FINDING OF DAVID 10/22/2018 DALE AMBROSE DO Ot C25.9 MALIGNANT NEOPLASM OF PANCREAS, UNSPECIF 11/01/2018 AMBROSE DALE HERNANDEZ D Ot C25.9 MALIGNANT NEOPLASM OF PANCREAS, UNSPECIF 11/01/2018 AMBROSE DODALE D Ot R18.8 OTHER ASCITES 11/01/2018 SKY JT Heller Ot 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 11/01/2018 SKY JT Heller Ot E03.9 HYPOTHYROIDISM, UNSPECIFIED 11/01/2018 SKY JT Heller Ot F32.9 MAJOR DEPRESSIVE DISORDER, SINGLE EPISOD 11/01/2018 SKY JT Heller Ot Z51.11 ENCOUNTER FOR ANTINEOPLASTIC CHEMOTHERAP 11/01/2018 SKY JT Heller Ot Z79.899 OTHER PENITENTIARY (CURRENT) DRUG THERAPY 11/06/2018 DALE AMBROSE DO Ot R18.8 OTHER ASCITES 11/10/2018 AMBROSE DALE HERNANDEZ D Ot R18.8 OTHER ASCITES 11/13/2018 SKY JT Heller Ot 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 11/13/2018 SKY JT Heller Ot E03.9 HYPOTHYROIDISM, UNSPECIFIED 11/13/2018 SKY JT Heller Ot F32.9 MAJOR DEPRESSIVE DISORDER, SINGLE EPISOD 11/13/2018 SKY JT Heller Ot Z51.11 ENCOUNTER FOR ANTINEOPLASTIC CHEMOTHERAP 11/13/2018 SKY JT Heller Ot Z79.899 OTHER PENITENTIARY (CURRENT) DRUG THERAPY 11/17/2018 DALE AMBROSE DO D Ot C25.9 MALIGNANT NEOPLASM OF PANCREAS, UNSPECIF 11/17/2018 AMBROSE DO DALE D Ot R18.8 OTHER ASCITES Procedures Code Description [place] [address] OXIMETRY 02/18/2013 87685 THERAPUTIC INJ SQ/IM 02/18/2013 J0696 ROCEPHIN INJ 02/18/2013 14793 STREP A (IN-HOUSE) 02/18/2013 69551 THERAPUTIC INJ SQ/IM 07/27/2013 J0696 ROCEPHIN INJ 1 g 07/27/2013 Neurology Ester Morejon 03/01/2014 00333 MRI SPINE (CERVICAL) W/O CONTRAST 03/01/2014 24240 MRI SPINE (THORACIC) W/O CONTRAST 03/01/2014 Results Test Result Range [id number] - 11/20/16 13:27 Serum or plasma urea nitrogen measurement (mass/volume) 8 mg/dL 7-18 Serum or plasma creatinine measurement (mass/volume) 0.70 mg/dL 0.60-1.30 Serum or plasma urea nitrogen/creatinine mass ratio 11 NRG Serum or plasma creatinine measurement with calculation of estimated glomerular filtration rate > NRG Methicillin resistant Staphylococcus aureus (MRSA) screening culture - 12/05/16 11:25 Methicillin resistant Staphylococcus aureus (MRSA) screening culture NEG NRG Magnesium - 12/24/16 09:10 Magnesium 1.8 mg/dL 1.8-2.4 Influenza virus A and B antigen detection - 04/02/17 10:30 FLU RESULT NEGATIVE FOR INFLUENZA A AND B ANTIGENS BY IA NRG Complete blood count (CBC) with automated white blood cell (WBC) differential - 05/14/17 10:00 Blood leukocytes automated count (number/volume) 3.9 10*3/uL 4.3-11.0 Blood erythrocytes automated count (number/volume) 3.68 10*6/uL 4.35-5.85 Venous blood hemoglobin measurement (mass/volume) 10.8 g/dL 11.5-16.0 Blood hematocrit (volume fraction) 35 % 35-52 Automated erythrocyte mean corpuscular volume 95 [foz_us] 80-99 Automated erythrocyte mean corpuscular hemoglobin (mass per erythrocyte) 29 pg 25-34 Automated erythrocyte mean corpuscular hemoglobin concentration measurement (mass/volume) 31 g/dL 32-36 Automated erythrocyte distribution width ratio 15.0 % 10.0- 14.5 Automated blood platelet count (count/volume) 345 10*3/uL 130-400 Automated blood platelet mean volume measurement 9.2 [foz_us] 7.4-10.4 Automated blood neutrophils/100 leukocytes 50 % 42-75 Automated blood lymphocytes/100 leukocytes 32 % 12-44 Blood monocytes/100 leukocytes 16 % 0-12 Automated blood eosinophils/100 leukocytes 2 % 0-10 Automated blood basophils/100 leukocytes 1 % 0-10 Blood neutrophils automated count (number/volume) 1.9 10*3 1.8-7.8 Blood lymphocytes automated count (number/volume) 1.2 10*3 1.0-4.0 Blood monocytes automated count (number/volume) 0.6 10*3 0.0- 1.0 Automated eosinophil count 0.1 10*3/uL 0.0-0.3 Automated blood basophil count (count/volume) 0.0 10*3/uL 0.0-0.1 Whole blood basic metabolic panel - 05/14/17 10:00 Serum or plasma sodium measurement (moles/volume) 142 mmol/L 135-145 Serum or plasma potassium measurement (moles/volume) 3.9 mmol/L 3.6-5.0 Serum or plasma chloride measurement (moles/volume) 109 mmol/L 98-107 Carbon dioxide 25 mmol/L 21-32 Serum or plasma anion gap determination (moles/volume) 8 mmol/L 5-14 Serum or plasma urea nitrogen measurement (mass/volume) 7 mg/dL 7-18 Serum or plasma creatinine measurement (mass/volume) 0.65 mg/dL 0.60-1.30 Serum or plasma urea nitrogen/creatinine mass ratio 11 NRG Serum or plasma creatinine measurement with calculation of estimated glomerular filtration rate > NRG Serum or plasma glucose measurement (mass/volume) 105 mg/dL 70-105 Serum or plasma calcium measurement (mass/volume) 8.8 mg/dL 8.5-10.1 Complete blood count (CBC) with automated white blood cell (WBC) differential - 07/22/17 11:10 Blood leukocytes automated count (number/volume) 3.5 10*3/uL 4.3-11.0 Blood erythrocytes automated count (number/volume) 3.81 10*6/uL 4.35-5.85 Venous blood hemoglobin measurement (mass/volume) 11.0 g/dL 11.5-16.0 Blood hematocrit (volume fraction) 34 % 35-52 Automated erythrocyte mean corpuscular volume 90 [foz_us] 80-99 Automated erythrocyte mean corpuscular hemoglobin (mass per erythrocyte) 29 pg 25-34 Automated erythrocyte mean corpuscular hemoglobin concentration measurement (mass/volume) 32 g/dL 32-36 Automated erythrocyte distribution width ratio 15.5 % 10.0- 14.5 Automated blood platelet count (count/volume) 285 10*3/uL 130-400 Automated blood platelet mean volume measurement 9.3 [foz_us] 7.4-10.4 Automated blood neutrophils/100 leukocytes 37 % 42-75 Automated blood lymphocytes/100 leukocytes 40 % 12-44 Blood monocytes/100 leukocytes 19 % 0-12 Automated blood eosinophils/100 leukocytes 3 % 0-10 Automated blood basophils/100 leukocytes 1 % 0-10 Blood neutrophils automated count (number/volume) 1.3 10*3 1.8-7.8 Blood lymphocytes automated count (number/volume) 1.4 10*3 1.0-4.0 Blood monocytes automated count (number/volume) 0.7 10*3 0.0- 1.0 Automated eosinophil count 0.1 10*3/uL 0.0-0.3 Automated blood basophil count (count/volume) 0.0 10*3/uL 0.0-0.1 Comprehensive metabolic panel - 07/22/17 11:10 Serum or plasma sodium measurement (moles/volume) 142 mmol/L 135-145 Serum or plasma potassium measurement (moles/volume) 3.8 mmol/L 3.6-5.0 Serum or plasma chloride measurement (moles/volume) 110 mmol/L 98-107 Carbon dioxide 22 mmol/L 21-32 Serum or plasma anion gap determination (moles/volume) 10 mmol/L 5-14 Serum or plasma urea nitrogen measurement (mass/volume) 5 mg/dL 7-18 Serum or plasma creatinine measurement (mass/volume) 0.67 mg/dL 0.60-1.30 Serum or plasma urea nitrogen/creatinine mass ratio 7 NRG Serum or plasma creatinine measurement with calculation of estimated glomerular filtration rate > NRG Serum or plasma glucose measurement (mass/volume) 80 mg/dL 70-105 Serum or plasma calcium measurement (mass/volume) 8.5 mg/dL 8.5-10.1 Serum or plasma total bilirubin measurement (mass/volume) 0.4 mg/dL 0.1-1.0 Serum or plasma alkaline phosphatase measurement (enzymatic activity/volume) 78 U/L 40-136 Serum or plasma aspartate aminotransferase measurement (enzymatic activity/volume) 22 U/L 5-34 Serum or plasma alanine aminotransferase measurement (enzymatic activity/volume) 18 U/L 0-55 Serum or plasma protein measurement (mass/volume) 6.1 g/dL 6.4-8.2 Serum or plasma albumin measurement (mass/volume) 3.8 g/dL 3.2-4.5 THYROID STIMULATING HORMONE - 07/22/17 11:10 THYROID STIMULATING HORMONE 0.38 u[iU]/mL 0.35-4.94 CA 19-9 - 07/22/17 11:10 CA 19-9 C 8 u[iU]/mL 0-37 Complete blood count (CBC) with automated white blood cell (WBC) differential - 04/21/18 10:00 Blood leukocytes automated count (number/volume) 5.2 10*3/uL 4.3-11.0 Blood erythrocytes automated count (number/volume) 4.33 10*6/uL 4.35-5.85 Venous blood hemoglobin measurement (mass/volume) 12.2 g/dL 11.5-16.0 Blood hematocrit (volume fraction) 38 % 35-52 Automated erythrocyte mean corpuscular volume 88 [foz_us] 80-99 Automated erythrocyte mean corpuscular hemoglobin (mass per erythrocyte) 28 pg 25-34 Automated erythrocyte mean corpuscular hemoglobin concentration measurement (mass/volume) 32 g/dL 32-36 Automated erythrocyte distribution width ratio 16.9 % 10.0- 14.5 Automated blood platelet count (count/volume) 136 10*3/uL 130-400 Automated blood platelet mean volume measurement 10.8 [foz_us] 7.4-10.4 Automated blood neutrophils/100 leukocytes 59 % 42-75 Automated blood lymphocytes/100 leukocytes 29 % 12-44 Blood monocytes/100 leukocytes 11 % 0-12 Automated blood eosinophils/100 leukocytes 0 % 0-10 Automated blood basophils/100 leukocytes 0 % 0-10 Blood neutrophils automated count (number/volume) 3.1 10*3 1.8-7.8 Blood lymphocytes automated count (number/volume) 1.5 10*3 1.0-4.0 Blood monocytes automated count (number/volume) 0.6 10*3 0.0- 1.0 Automated eosinophil count 0.0 10*3/uL 0.0-0.3 Automated blood basophil count (count/volume) 0.0 10*3/uL 0.0-0.1 Whole blood basic metabolic panel - 04/21/18 10:00 Serum or plasma sodium measurement (moles/volume) 140 mmol/L 135-145 Serum or plasma potassium measurement (moles/volume) 3.8 mmol/L 3.6-5.0 Serum or plasma chloride measurement (moles/volume) 106 mmol/L 98-107 Carbon dioxide 23 mmol/L 21-32 Serum or plasma anion gap determination (moles/volume) 11 mmol/L 5-14 Serum or plasma urea nitrogen measurement (mass/volume) 11 mg/dL 7-18 Serum or plasma creatinine measurement (mass/volume) 0.75 mg/dL 0.60-1.30 Serum or plasma urea nitrogen/creatinine mass ratio 15 NRG Serum or plasma creatinine measurement with calculation of estimated glomerular filtration rate > NRG Serum or plasma glucose measurement (mass/volume) 127 mg/dL 70-105 Serum or plasma calcium measurement (mass/volume) 9.2 mg/dL 8.5-10.1 THYROID STIMULATING HORMONE - 06/09/18 09:13 THYROID STIMULATING HORMONE 4.22 u[iU]/mL 0.35-4.94 Complete blood count (CBC) with automated white blood cell (WBC) differential - 06/30/18 13:25 Blood leukocytes automated count (number/volume) 6.9 10*3/uL 4.3-11.0 Blood erythrocytes automated count (number/volume) 3.95 10*6/uL 4.35-5.85 Venous blood hemoglobin measurement (mass/volume) 11.4 g/dL 11.5-16.0 Blood hematocrit (volume fraction) 36 % 35-52 Automated erythrocyte mean corpuscular volume 91 [foz_us] 80-99 Automated erythrocyte mean corpuscular hemoglobin (mass per erythrocyte) 29 pg 25-34 Automated erythrocyte mean corpuscular hemoglobin concentration measurement (mass/volume) 32 g/dL 32-36 Automated erythrocyte distribution width ratio 16.8 % 10.0- 14.5 Automated blood platelet count (count/volume) 160 10*3/uL 130-400 Automated blood platelet mean volume measurement 10.0 [foz_us] 7.4-10.4 Automated blood neutrophils/100 leukocytes 61 % 42-75 Automated blood lymphocytes/100 leukocytes 24 % 12-44 Blood monocytes/100 leukocytes 13 % 0-12 Automated blood eosinophils/100 leukocytes 0 % 0-10 Automated blood basophils/100 leukocytes 3 % 0-10 Blood neutrophils automated count (number/volume) 4.1 10*3 1.8-7.8 Blood lymphocytes automated count (number/volume) 1.7 10*3 1.0-4.0 Blood monocytes automated count (number/volume) 0.9 10*3 0.0- 1.0 Automated eosinophil count 0.0 10*3/uL 0.0-0.3 Automated blood basophil count (count/volume) 0.2 10*3/uL 0.0-0.1 Whole blood basic metabolic panel - 06/30/18 13:25 Serum or plasma sodium measurement (moles/volume) 141 mmol/L 135-145 Serum or plasma potassium measurement (moles/volume) 4.0 mmol/L 3.6-5.0 Serum or plasma chloride measurement (moles/volume) 106 mmol/L 98-107 Carbon dioxide 25 mmol/L 21-32 Serum or plasma anion gap determination (moles/volume) 10 mmol/L 5-14 Serum or plasma urea nitrogen measurement (mass/volume) 9 mg/dL 7-18 Serum or plasma creatinine measurement (mass/volume) 0.80 mg/dL 0.60-1.30 Serum or plasma urea nitrogen/creatinine mass ratio 11 NRG Serum or plasma creatinine measurement with calculation of estimated glomerular filtration rate > NRG Serum or plasma glucose measurement (mass/volume) 105 mg/dL 70-105 Serum or plasma calcium measurement (mass/volume) 8.8 mg/dL 8.5-10.1 Complete blood count (CBC) with automated white blood cell (WBC) differential - 10/07/18 20:35 Blood leukocytes automated count (number/volume) 5.2 10*3/uL 4.3-11.0 Blood erythrocytes automated count (number/volume) 4.55 10*6/uL 4.35-5.85 Venous blood hemoglobin measurement (mass/volume) 13.0 g/dL 11.5-16.0 Blood hematocrit (volume fraction) 40 % 35-52 Automated erythrocyte mean corpuscular volume 87 [foz_us] 80-99 Automated erythrocyte mean corpuscular hemoglobin (mass per erythrocyte) 29 pg 25-34 Automated erythrocyte mean corpuscular hemoglobin concentration measurement (mass/volume) 33 g/dL 32-36 Automated erythrocyte distribution width ratio 17.3 % 10.0- 14.5 Automated blood platelet count (count/volume) 172 10*3/uL 130-400 Automated blood platelet mean volume measurement 10.3 [foz_us] 7.4-10.4 Automated blood neutrophils/100 leukocytes 82 % 42-75 Automated blood lymphocytes/100 leukocytes 9 % 12-44 Blood monocytes/100 leukocytes 9 % 0-12 Automated blood eosinophils/100 leukocytes 0 % 0-10 Automated blood basophils/100 leukocytes 0 % 0-10 Blood neutrophils automated count (number/volume) 4.3 10*3 1.8-7.8 Blood lymphocytes automated count (number/volume) 0.5 10*3 1.0-4.0 Blood monocytes automated count (number/volume) 0.5 10*3 0.0- 1.0 Automated eosinophil count 0.0 10*3/uL 0.0-0.3 Automated blood basophil count (count/volume) 0.0 10*3/uL 0.0-0.1 Whole blood basic metabolic panel - 10/07/18 20:35 Serum or plasma sodium measurement (moles/volume) 140 mmol/L 135-145 Serum or plasma potassium measurement (moles/volume) 3.6 mmol/L 3.6-5.0 Serum or plasma chloride measurement (moles/volume) 104 mmol/L 98-107 Carbon dioxide 22 mmol/L 21-32 Serum or plasma anion gap determination (moles/volume) 14 mmol/L 5-14 Serum or plasma urea nitrogen measurement (mass/volume) 7 mg/dL 7-18 Serum or plasma creatinine measurement (mass/volume) 0.69 mg/dL 0.60-1.30 Serum or plasma urea nitrogen/creatinine mass ratio 10 NRG Serum or plasma creatinine measurement with calculation of estimated glomerular filtration rate > NRG Serum or plasma glucose measurement (mass/volume) 124 mg/dL 70-105 Serum or plasma calcium measurement (mass/volume) 8.9 mg/dL 8.5-10.1 Encounters ACCT No. Visit Date/Time Discharge Status Pt. Type Provider Facility Loc./Unit Complaint [id number] 04/18/2014 11:26:00 04/18/2014 23:59:59 CLS Outpatient AMARILYS FLORENCE APRN [id number] 02/25/2014 14:30:00 02/25/2014 23:59:59 CLS Outpatient AMARILYS FLORENCE APRN [id number] 07/27/2013 08:37:00 07/27/2013 23:59:59 CLS Outpatient AMARILYS FLORENCE APRN [id number] 03/29/2013 14:24:00 03/29/2013 23:59:59 CLS Outpatient AMARILYS FLORENCE APRN A [id number] 02/18/2013 10:18:00 02/18/2013 23:59:59 CLS Outpatient AMARILYS FLORENCE APRN A [id number] 02/05/2013 13:57:00 02/05/2013 23:59:59 CLS Outpatient BAL FLORENCE APRNYL A [id number] 06/16/2012 14:20:00 06/16/2012 23:59:59 CLS Outpatient BAL FLORENCE APRNYL A [id number] 03/06/2012 10:14:00 03/06/2012 23:59:59 CLS Outpatient AMARILYS FLORENCE APRN A [id number] 11/18/2018 15:00:00 11/18/2018 15:19:00 DIS Outpatient DALE AMBROSE DO [facility] PREOP ASCITES [id number] 11/17/2018 09:09:00 11/17/2018 00:01:00 DIS Outpatient JT SWANSON [facility] ONC [id number] 11/06/2018 14:08:00 11/06/2018 16:10:00 DIS Outpatient DALE AMBROSE DO [facility] SDC PARACENTESIS [id number] 10/23/2018 10:06:00 10/23/2018 23:59:59 CLS Outpatient DALE AMBROSE DO [facility] RAD ABD SWELLING, PANCREATIC CANCER [id number] 10/07/2018 18:55:00 10/07/2018 21:50:00 DIS Emergency MRAVEL KARAN HERNANDEZ [facility] ER BACK AND ABD PAIN;CANCER PT [id number] 10/05/2018 11:11:00 10/05/2018 23:59:59 CLS Outpatient DALE AMBROSE DO [facility] RAD PANCREATIC CA [id number] 09/30/2018 12:00:00 09/30/2018 23:59:59 CLS Outpatient JT SWANSON [facility] RAD PANCREATIC CA [id number] 08/17/2018 09:20:00 08/18/2018 00:01:00 DIS Outpatient JT SWANSON N [facility] ONC [id number] 08/10/2018 11:49:00 08/10/2018 23:59:59 CLS Outpatient CHESTERCHAMP Leyva S MANAGER PRIVATE [facility] CARD PANCREATIC CA,VAGINAL MASS [id number] 08/05/2018 07:31:00 08/05/2018 23:59:59 CLS Preadmit CHAMP CHESTER S MANAGER PRIVATE [facility] RAD PANCREATIC CA,VAGINAL MASS [id number] 05/18/2018 10:24:00 05/18/2018 23:59:59 CLS Outpatient CHAMP CHESTER S MANAGER [employer]IVATE [facility] RAD PANCREATIC CANCER [id number] 05/15/2018 11:51:00 05/18/2018 00:01:00 DIS Outpatient JT SWANSON [facility] ONC [id number] 03/31/2018 10:33:00 03/31/2018 23:59:59 CLS Outpatient CHAMP CHESTER S MANAGER [employer]IVATE [facility] CARD PANCREATIC CA [id number] 03/10/2018 11:12:00 03/10/2018 23:59:59 CLS Preadmit CHESTER, HILAH S MANAGER PRIVATE [facility] RAD PANCREATIC CA [id number] 02/13/2018 11:01:00 02/17/2018 08:47:00 DIS Outpatient JT SWANSON N [facility] ONC [id number] 01/01/2018 11:00:00 01/01/2018 23:59:59 CLS Outpatient JT SWANSON N [facility] CARD PANCREATIC CANCER [id number] 11/18/2017 08:33:00 11/24/2017 00:01:00 DIS Outpatient JT SWANSON N [facility] ONC [id number] 10/10/2017 11:09:00 10/10/2017 23:59:59 CLS Outpatient JT SWANSON [facility] CARD C25.1 PANCREATIC CANCER [id number] 08/18/2017 14:12:00 08/19/2017 00:01:00 DIS Outpatient JORGE SWANSONKALEY Arron [facility] ONC [id number] 08/18/2017 14:55:00 08/18/2017 23:59:59 CLS Outpatient JT SWANSON [facility] RAD LT ARM PAIN,LT ARM SWELLING [id number] 08/15/2017 11:03:00 08/15/2017 23:59:59 CLS Outpatient JT SWANSON [facility] RAD PANCREATIC CANCER [id number] 05/14/2017 09:25:00 05/21/2017 09:21:00 DIS Outpatient JT SWANSON [facility] ONC [id number] 04/30/2017 08:09:00 05/02/2017 14:14:00 DIS Outpatient ALLI PANIAGUA MD [facility] ONC [id number] 04/30/2017 07:21:00 04/30/2017 23:59:59 CLS Outpatient ALLI PANIAGUA MD [facility] RAD PANCREATIC CANCER [id number] 02/26/2017 08:53:00 03/06/2017 15:44:00 DIS Outpatient JT SWANSON [facility] ONC [id number] 02/12/2017 08:53:00 02/15/2017 00:01:00 DIS Outpatient JT SWANSON [facility] ONC [id number] 12/12/2016 09:15:00 12/12/2016 23:59:59 CLS Preadmit SHER DEAN MD [facility] CARD PALPITATIONS,CHEST PAIN [id number] 10/18/2016 12:30:00 12/11/2016 00:01:00 DIS Outpatient SHER DEAN MD [facility] CARD PALPITATIONS,CHEST PAIN [id number] 12/10/2016 08:09:00 12/10/2016 23:59:59 CLS Outpatient JT SWANSON [facility] RAD PANCREATIC MASS K86.9 [id number] 12/05/2016 11:17:00 12/05/2016 15:30:00 DIS Outpatient ANN SIFUENTES DO [facility] PANCREATIC CANCER [id number] 12/04/2016 09:00:00 12/04/2016 09:53:00 DIS Outpatient ANN SIFUENTES DO [facility] PREOP PANCREATIC CANCER [id number] 11/20/2016 11:55:00 11/20/2016 23:59:59 CLS Outpatient SHER DEAN MD [facility] RAD RUQ ABD PAIN [id number] 09/09/2016 16:42:00 09/09/2016 23:59:59 CLS Outpatient SHER DEAN MD [facility] RAD PALPITATIONS,CHEST PAIN [id number] 03/04/2014 15:18:00 03/04/2014 23:59:59 CLS Outpatient [id number] 01/30/2014 11:14:00 01/30/2014 13:07:00 DIS Emergency JUDE MCCURDY GERIATRIC NURSE [facility] ER HEADACHE [id number] 11/24/2013 09:11:00 11/24/2013 13:42:00 DIS Outpatient MEDINA LYNCH MD [facility] DYSPLASTIC [id number] 11/22/2013 10:23:00 11/22/2013 23:59:59 CLS Outpatient MEDINA LYNCH MD [facility] PREOP DYSPLASTIC NEVIS [id number] 03/09/2013 07:24:00 03/09/2013 10:30:00 DIS Outpatient SHER DEAN MD [facility] SCREENING [id number] 03/03/2013 07:22:00 03/03/2013 23:59:59 CLS Outpatient SHER DEAN MD [facility] PREOP SCREENING [id number] 11/20/2018 13:30:00 PEN Preadmit DALE AMBROSE DO [facility] US IN OR FOR PLEURX CATHETER [id number] 11/18/2018 00:11:00 PEN Preadmit JT SWANSON [facility] ONC [id number] 08/16/2017 12:30:00 Document Registration [id number] 06/12/2010 08:43:00 Document Registration [id number] 02/27/2010 14:01:00 Document Registration
[2018-11-20] MEDS ORDERED: LACTATED RINGERS 1,000 ML IV PRN (13:09)
[2018-11-20] MEDS ORDERED: ONDANSETRON 4 MG/2 ML (SDV) Z0FRAN ONE ×2 (13:13→13:25)
[2018-11-20] MEDS ORDERED: ONDANSETRON 4 MG/2 ML (SDV) Z0FRAN IV ONE (13:15)
[2018-11-20] MEDS ORDERED: PROPOFOL INJECTION 50 ML IV ONE (13:25)
[2018-11-20] MEDS ORDERED: MIDAZOLAM 2 MG/2 ML (VERSED) VIAL ONE (13:25)
[2018-11-20] MEDS ORDERED: fentaNYL INJECTION 100 MCG/2 ML AMP ONE ×2 (13:57→15:59)
--- NOTE | 2018-11-20 14:11 | Progress Note-Pre Operative ---
Pre-Operative Progress Note H&P Reviewed The H&P was reviewed, patient examined and no changes noted. Date Seen by Provider: Nov 20, 2018 Time Seen by Provider: 14:11 Date H&P Reviewed: Nov 20, 2018 Time H&P Reviewed: 14:11 Pre-Operative Diagnosis: symptomactic ascites DALE AMBROSE DO Nov 20, 2018 14:11
[2018-11-20] MEDS ORDERED: ceFAZolin INJECTION 1,000 MG ONE (14:20)
[2018-11-20] MEDS ORDERED: ceFAZolin INJECTION 1,000 MG VIAL IV ONE (14:45)
[2018-11-20] MEDS ORDERED: HYDROmorphone 2 MG/ML VIAL (DILAUDID) IV ONE (15:15)
[2018-11-20] MEDS ORDERED: ONDANSETRON 4 MG/2 ML (SDV) Z0FRAN IVP PRN (15:15)
--- NOTE | 2018-11-20 15:32 | Diagnostic Imaging Report ---
INDICATION: Ultrasound guidance for PleurX catheter placement. COMPARISON: None. FINDINGS: Sonographic guidance was provided for Dr. Ma in the OR during PleurX catheter placement. Image provided shows a large amount of ascites in the right lower abdominal quadrant. IMPRESSION: 1. Sonographic guidance provided during PleurX catheter placement. Dictated by: Dictated on workstation # [id number]
--- NOTE | 2018-11-20 16:09 | Discharge Inst-Simple/Standard ---
Discharge Inst-Standard Patient Instructions/Follow Up Plan of Care/Instructions/FU: 2 weeks Anil. Any issues before then, be seen at that time. Drain Pleur x Catheter daily, as long as you get 750 mL or more out per time. If get less than 750Ml wait another day in between drains. Goal is to get qpproximately 1 L of fluid out per drain time. Keep area clean and dry. Activity as Tolerated: Yes Discharge Diet: Regular Diet DALE AMBROSE DO Nov 20, 2018 16:09
--- NOTE | 2018-11-20 16:12 | Progress Note-Post Operative ---
Post-Operative Progess Note Surgeon (s)/Process Engineering Technician (s) Surgeon DALE AMBROSE DO Process Engineering Technician: na Pre-Operative Diagnosis symptomactic ascites Post-Operative Diagnosis same Procedure & Operative Findings Date of Procedure 11/20/18 Procedure Performed/Findings u/s guided pleur x abdominal catheter placement Anesthesia Type mac c local Estimated Blood Loss Estimated blood loss (mL): min Specimens/Packing Specimens Removed na DALE AMBROSE DO Nov 20, 2018 16:12
[2018-11-20] MEDS ORDERED: fentaNYL INJECTION 100 MCG/2 ML AMP IVP ONE (16:15)
--- NOTE | 2018-11-21 08:12 | Anesthesia-General Post-Op ---
MAC Patient Condition Mental Status/LOC: Same as Preop Cardiovascular: Satisfactory Nausea/Vomiting: Absent Respiratory: Satisfactory Pain: Controlled Complications: Absent Post Op Complications Complications None Follow Up Care/Instructions Patient Instructions None needed. Anesthesiology Discharge Order Discharge Order Patient is doing well, no complaints, stable vital signs, no apparent adverse anesthesia problems. No complications reported per nursing. BRITTNEE CHA CRNA Nov 21, 2018 08:12
--- NOTE | 2018-11-21 23:38 | OPERATIVE REPORT ---
DATE OF SERVICE: 11/20/2018 PREOPERATIVE DIAGNOSIS: Symptomatic ascites, recurrent. POSTOPERATIVE DIAGNOSIS: Symptomatic ascites, recurrent. PROCEDURE: Ultrasound-guided abdominal PleurX catheter placement. SURGEON: Dale Ma DO ANESTHESIA: MAC with local. ESTIMATED BLOOD LOSS: Minimal. COMPLICATIONS: None. INDICATIONS: The patient is a 58-year-old female with recurrent symptomatic ascites with adenocarcinoma of the pancreas. She understands risks and benefits of procedure and wished to proceed with procedure. Consent was signed on the chart. DESCRIPTION OF PROCEDURE: The patient was taken to the operating suite. She was prepped and draped in sterile fashion. Timeout was performed. Ultrasound was used to locate the largest fluid pocket for insertion points in the right lower quadrant. A 11 blade scalpel was used to make a small skin incision after local anesthetic was infiltrated. The 18-gauge needle catheter was inserted through the abdominal wall until straw colored fluid returned and the catheter was advanced. Guidewire was inserted into the abdomen and the catheter was then removed. The wire was secured. Local anesthetic was infiltrated along the right side of the abdomen for tunneling purposes. Approximately a 5 cm away 11 blade scalpel was used to make small skin incisions well to tunnel the catheter. The PleurX catheter was then tunneled from this incision to the insertion point of the wire was present. The dilators were then advanced over the wire and removed until the dilator sheath was then inserted and the wire and the dilator were removed and the catheter was then advanced through the sheath and the sheath was removed. The subcutaneous tissues were then reapproximated using absorbable suture. The catheter was then sewn into place. This area was then washed and dried, sterile bandage was applied. A total of 3 liters of fluid was drawn off the abdomen at the time of insertion. The patient tolerated procedure well without any complications. She was taken to the recovery room in stable condition. Job ID: [id number] DocumentID: [id number] Dictated Date: 11/21/2018 16:41:22 Alteration Specialist Date: 11/21/2018 23:37:27 Dictated By: DALE MA DO
== END 2018-11-20 17:30 | disposition home or self-care (01) ==
LOC: SDC 12:01
PROVIDERS: ATTEND Surgery
DX: R18.8 Other ascites (principal); C25.9 Malignant neoplasm of pancreas, unspecified; F32.9 Major depressive disorder, single episode, unspecified; E03.9 Hypothyroidism, unspecified; I87.2 Venous insufficiency (chronic) (peripheral); K59.00 Constipation, unspecified; R63.4 Abnormal weight loss; Z79.899 Other long term (current) drug therapy; Z80.3 Family history of malignant neoplasm of breast; Z80.42 Family history of malignant neoplasm of prostate; Z80.41 Family history of malignant neoplasm of ovary; Z80.0 Family history of malignant neoplasm of digestive organs
CPT/HCPCS: 76942; 87081

== ENCOUNTER 2018-12-02 09:24 | Outpatient (RCR) | payer BC ==
[2018-11-23 11:23] LABS: ALANINE AMINOTRANSFERASE 10 U/L (0-55); ALKALINE PHOSPHATASE 131 U/L (40-136); BILIRUBIN,TOTAL 0.5 MG/DL (0.1-1.0); BUN/CREATININE RATIO 12; CALCIUM 8.6 MG/DL (8.5-10.1); CARBON DIOXIDE 25 MMOL/L (21-32); CHLORIDE 101 MMOL/L (98-107); CREATININE SERUM 0.67 MG/DL (0.60-1.30); GFR ESTIMATED > 60; GLUCOSE 92 MG/DL (70-105); POTASSIUM 4.4 MMOL/L (3.6-5.0); SODIUM 136 MMOL/L (135-145); TOTAL PROTEIN 5.8 GM/DL (6.4-8.2)
[~2018-12-02 09:24] MED LIST changes: +NS IV 500 ML (CANCER CENTER) 500 ML ONE; +ONDANSETRON MDV (CANCER CENTER 8 MG, DEXAMETHASONE INJ (CANCER CTR) 4 MG in NS (IVPB) C... IV ONE
[2018-12-02] MEDS ORDERED: NS IV 1000 ML (CANCER CTR) 0 ML ONE (09:56)
[2018-12-02] MEDS ORDERED: POTASSIUM CHL INJ (CANCER CTR) 20 MEQ, MAGNESIUM SULFATE (CANCER CTR) 2 GM in NS IV 100... IV ONE (10:01)
== END 2019-02-21 | disposition home or self-care (01) ==
LOC: ONC 09:24
PROVIDERS: ATTEND Internal Medicine Hematology & Oncology
DX: C25.1 Malignant neoplasm of body of pancreas (principal); E03.9 Hypothyroidism, unspecified; F32.9 Major depressive disorder, single episode, unspecified; Z79.899 Other long term (current) drug therapy
CPT/HCPCS: 36415; 80053; 96361; 96365; 96366; 96374; 96375; 99213